=== PATIENT | female | born 1930 | race Caucasian/White ===

== ENCOUNTER 2016-12-29 14:41 | Inpatient (IN) | payer MEDICARE, BC ==
[2016-12-29 15:56] LABS: CHLORIDE,CL 100 mEq/L (98-106); SODIUM,NA 140 mEq/L (136-145)
[2016-12-29] MEDS ORDERED: Naloxone 2 MG/2 ML Syringe IVPUSH ONE (16:41)
--- NOTE | 2016-12-29 17:29 | EDM.PDOC ---
ED HPI ALTERED MENTAL STATUS - General Chief Complaint: Neuro Symptoms/Deficits Stated Complaint: found on floor, confused Time Seen by Provider: 12/29/16 15:10 Source of Information: Reports: EMS, Family History Limitations: Reports: Altered mental status - History of Present Illness INITIAL COMMENTS - FREE TEXT/NARRATIVE: Patient presents to ER per EMS with altered mental status. Daughter relates that last evening a friend talked to her and seemed "a bit off". Daughter called her this am and patient seemed lethargic, speech wasn't clear. Said she advised her to rest and have her call her back when she awoke. Daughter states she didn't hear from her so she went and checked on her and found her lying on the floor. Was confused. Speech still seemed off. Apparently didn't know who her daughter was. Seemed very weak. Blood pressure high for EMS and on arrival. Was in to see Dr. Linares recently. Daughter states he had put her on flexeril and norco for ongoing back pain. Was seen by a specialist on Saturday and was started on Gabapentin and Amitryptiline. Daughter does not think she has had a fever. No cough. No nausea or vomiting. Was not incontinent of bowel or bladder. Baseline Mental Status: Reports: alert/oriented Symptom Onset Date: 12/28/16 Timing/Duration: Reports: Day(s): Context: Reports: new/acute, new meds, found by family. Denies: recent infection, new trauma, drug/ETOH abuse - Related Data Allergies/ADRs: Allergies oxycodone HCl [From Percocet] Allergy (Verified 12/29/16 15:17) Hallucinations Home Meds: Home Meds Aspirin 325 mg PO DAILY 05/02/14 [History] Hydrocodone/Acetaminophen [[place] 5-325] 1 - 2 tab PO Q4H PRN 05/02/14 [History] Lisinopril/Hydrochlorothiazide [Lisinopril-Hctz 20-12.5 mg Tab] 1 each PO DAILY 05/02/14 [History] Metoprolol Succinate [Toprol XL 100mg] 100 mg PO DAILY 05/02/14 [History] Simvastatin 80 mg PO BEDTIME 05/02/14 [History] cloNIDine [Catapres] 0.1 mg PO BID 05/02/14 [History] traZODone 50 mg PO BEDTIME 05/02/14 [History] Cholecalciferol (Vitamin D3) [Vitamin D] 1,000 unit PO DAILY 12/24/15 [History] Cyclobenzaprine HCl 10 mg PO BEDTIME 12/24/15 [History] Insulin Glarg,Human.Rec.Analog [LantUS Solostar] 40 unit SUBCUT BEDTIME [History] metFORMIN [Glucophage] 500 mg PO BIDMEALS 08/08/16 [History] Amitriptyline HCl 75 mg PO BEDTIME 12/29/16 [History] Gabapentin [Neurontin] 300 mg PO TID 12/29/16 [History] Past Medical History HEENT History: Reports: Allergic rhinitis Cardiovascular History: Reports: High cholesterol, Hypertension Respiratory History: Reports: Sleep apnea Gastrointestinal History: Reports: GERD Genitourinary History: Reports: None 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: Musculoskeletal History: Reports: Arthritis, Back pain, chronic, Fracture, Osteoporosis, RA, Other (see below) Other Musculoskeletal History: Muscle spasms, arthralgia Neurological History: Reports: Other (see below) Other Neuro History: daughter states pt has had a few ministrokes Psychiatric History: Reports: Anxiety, Other (see below) Other Psychiatric History: Insomnia Endocrine/Metabolic History: Reports: Diabetes, type II Hematologic History: Reports: None Oncologic (Cancer) History: Reports: Breast Dermatologic History: Reports: Other (see below) Other Dermatologic History: Actinic keratosis - Past Surgical History HEENT Surgical History: Reports: Cataract surgery Respiratory Surgical History: Reports: None GI Surgical History: Reports: Appendectomy, Cholecystectomy, Hernia, inguinal Female Surgical History: Reports: Hysterectomy, Oophorectomy, Other (see below) Other Female Surgeries/Procedures: Breast Lumpectomy Neurological Surgical History: Reports: None Musculoskeletal Surgical History: Reports: Other (see below) Other Musculoskeletal Surgeries/Procedures:: right elbow surgery Social & Family History - Family History Family Medical History: Noncontributory - Tobacco Use Smoking Status *Q: Never Smoker Second Hand Smoke Exposure: No - Recreational Drug Use Recreational Drug Use: No ED ROS GENERAL - Review of Systems Review Of Systems: See Below (obtained per daughter) Constitutional: Reports: weakness. Denies: fever, chills, malaise, diaphoresis HEENT: Denies: Ear discharge, Ear pain, Throat pain Respiratory: Reports: shortness of breath Cardiovascular: Reports: Lightheadedness Endocrine: Reports: fatigue GI/Abdominal: Denies: Abdominal pain, Nausea, Vomiting Musculoskeletal: Reports: back pain Skin: Reports: no symptoms Neurological: Reports: confusion, trouble speaking, weakness, change in speech, gait disturbance Psychiatric: Reports: Agitation, Anxiety, Confusion - Physical Exam Exam: See Below Exam Limited By: Altered mental status General Appearance: WD/WN, anxious Eye Exam: bilateral eye: PERRL Ears: normal external exam, normal TMs Nose: normal inspection, normal mucosa, no blood Throat/Mouth: Normal inspection, Normal oropharynx Head Exam: normocephalic Neck: normal inspection, supple, non-tender Respiratory/Chest: no respiratory distress, lungs clear, normal breath sounds Cardiovascular: tachycardia GI/Abdominal: normal bowel sounds, soft, non tender Neuro Exam (Abbreviated): disoriented, other (agitated, restless; does not follow commands. Does have equal palmar grasps; speech is slurred; BALLESTEROS equally) Extremities: normal inspection, no pedal edema Psychiatric: anxious Skin Exam: Warm, Dry Course - Vital Signs Last Recorded V/S: Last Vital Signs Temp 97.9 F 12/29/16 16:25 Pulse 120 H 12/29/16 16:25 Resp 20 12/29/16 16:25 BP 128/91 H 12/29/16 17:31 Pulse Ox 93 L 12/29/16 16:25 - Orders/Labs/Meds Orders: Active Orders 24 hr Category Date Time Status Patient Status [ADT] Routine ADT 12/29/16 18:33 Active Blood Glucose Check, Bedside [RC] QIDACANDBED Care 12/29/16 18:33 Active Cardiac Monitoring [RC] . DIRECTED Care 12/29/16 18:16 Active Cardiac Monitoring [RC] CONTINUOUS Care 12/29/16 18:33 Active Neuro Check [RC] Q4HR Care 12/29/16 18:33 Active Oxygen Therapy [RC] PRN Care 12/29/16 18:33 Active Peripheral IV Care [RC] . DIRECTED Care 12/29/16 18:33 Active Up With Assistance [RC] ASDIRECTED Care 12/29/16 18:33 Active VTE/DVT Education [RC] PER UNIT ROUTINE Care 12/29/16 18:33 Active Vital Signs [RC] Q4H Care 12/29/16 18:33 Active Consistent Carbohydrate Diet [DIET] Diet 12/29/16 Dinner Active CXR [Chest 1V Frontal] [CR] Stat Exams 12/29/16 14:51 Taken Cervical Spine wo Cont [CT] Stat Exams 12/29/16 14:50 Taken Head wo Cont [CT] Stat Exams 12/29/16 14:49 Taken ACETAMINOPHEN [REF] Stat Lab 12/29/16 16:41 Ordered AMMONIA [REF] Stat Lab 12/29/16 16:43 Ordered C-REACTIVE PROTEIN [CHEM] AM Lab 12/30/16 05:11 Ordered CBC WITH AUTO DIFF [HEME] AM Lab 12/30/16 05:11 Ordered COMPREHENSIVE METABOLIC PN,CMP [CHEM] AM Lab 12/30/16 05:11 Ordered Acetaminophen [Tylenol] Med 12/29/16 18:33 Active 650 mg PO Q4H PRN Enoxaparin [Lovenox] Med 12/29/16 18:33 Pending 40 mg SUBCUT Q24H LORazepam [Ativan] Med 12/29/16 18:33 Active 1 mg IVPUSH Q4H PRN Ondansetron [Zofran ODT] Med 12/29/16 18:33 Active 4 mg PO Q4H PRN Ondansetron [Zofran] Med 12/29/16 18:33 Active 4 mg IV Q4H PRN Sodium Chloride 0.45% 1,000 ml Med 12/29/16 18:00 Active IV ASDIRECTED Sodium Chloride 0.9% [Saline Flush] Med 12/29/16 18:33 Active 10 ml FLUSH ASDIRECTED PRN Peripheral IV Insertion Adult [OM.PC] Routine Oth 12/29/16 18:33 Ordered Resuscitation Status Routine Resus Stat 12/29/16 18:16 Ordered Medication Orders Acetaminophen (Tylenol) 650 mg PO Q4H PRN PRN Reason: Pain (Mild 1-3)/fever Enoxaparin Sodium (Lovenox) 40 mg SUBCUT Q24H RAJ Sodium Chloride (Sodium Chloride 0.45%) 1,000 mls @ 125 mls/hr IV ASDIRECTED RAJ Last Admin: 12/29/16 18:00 Dose: 125 mls/hr Lorazepam (Ativan) 1 mg IVPUSH Q4H PRN PRN Reason: Anxiety Ondansetron HCl (Zofran Odt) 4 mg PO Q4H PRN PRN Reason: nausea, able to take PO Ondansetron HCl (Zofran) 4 mg IV Q4H PRN PRN Reason: Nausea/Vomiting Sodium Chloride (Saline Flush) 10 ml FLUSH ASDIRECTED PRN PRN Reason: Keep Vein Open Labs: Laboratory Tests 12/29/16 12/29/16 12/29/16 Range/Units 14:51 15:07 15:07 WBC 8.9 (5.0-10.0) 10^3/uL RBC 4.33 (4.00-5.50) 10^6/uL Hgb 12.1 (12.0-16.0) g/dL Hct 37.9 (37.0-47.0) % MCV 87.5 (82.0-94.0) fL MCH 27.9 (27.0-32.0) pg MCHC 31.9 L (33.0-38.0) g/dL RDW Coeff of Roxanna 13.8 (11.0-15.0) % Plt Count 347 (150-400) 10^3/uL Neut % (Auto) 76.2 (35-85) % Lymph % (Auto) 15.7 (10-55) % [place] % (Auto) 4.6 (0-16) % Eos % (Auto) 3.2 (0-5) % Baso % (Auto) 0.3 (0-3) % Neut # 6.80 (1.80-7.00) 10^3/uL Lymph # 1.40 (1.00-4.80) 10^3/uL [place] # 0.41 (0.00-0.80) 10^3/uL Eos # 0.29 (0.00-0.45) 10^3/uL Baso # 0.03 10^3/uL D-Dimer, Quantitative 1.48 H (0.00-0.50) ABG pH (7.35-7.45) ABG pCO2 (35-45) mm/Hg0 ABG pO2 (80-100) mm/Hg ABG HCO3 (22.0-26.0) mm/L ABG O2 Saturation (95-98) % ABG Base Excess (-2.0-3.0) O2 Delivery Device Oxygen Flow Rate Sodium (136-145) mEq/L Potassium (3.5-5.0) mEq/L Chloride (98-106) mEq/L Carbon Dioxide (21-32) mmol/L BUN (7-18) mg/dL Creatinine (0.6-1.0) mg/dL Est Cr Clr Drug Dosing Estimated GFR (MDRD) (>=60) mL/min Glucose (75-99) mg/dL POC Glucose 116 H (75-105) mg/dl Lactic Acid (0.4-2.0) mmol/L Calcium (8.4-10.1) mg/dL Total Bilirubin (0.0-1.0) mg/dL AST (15-37) U/L ALT (12-78) U/L Alkaline Phosphatase (46-116) U/L Lactate Dehydrogenase (100-190) U/L Creatine Kinase (21-215) U/L Troponin I (0.00-0.06) ng/mL C-Reactive Protein (0.2-0.8) mg/dL Total Protein (6.4-8.2) g/dL Albumin (3.4-5.0) g/dL Urine Color (YELLOW) Urine Appearance (CLEAR) Urine pH (4.5-8.0) Ur Specific [place] (1.003-1.020) Urine Protein (NEGATIVE) mg/dL Urine Glucose (UA) (NEGATIVE) mg/dL Urine Ketones (NEGATIVE) mg/dL Urine Occult Blood (NEGATIVE) Urine Nitrite (NEGATIVE) Urine Bilirubin (NEGATIVE) Urine Urobilinogen (0.2-1.0) EU/dL Ur Leukocyte Esterase (NEGATIVE) Urine Opiates Screen (NEGATIVE) Ur Oxycodone Screen (NEGATIVE) Urine Methadone Screen (NEGATIVE) Ur Barbiturates Screen (NEGATIVE) U Tricyclic Antidepress (NEGATIVE) Ur Phencyclidine Scrn (NEGATIVE) Ur Amphetamine Screen (NEGATIVE) U Methamphetamines Scrn (NEGATIVE) Urine MDMA Screen (NEGATIVE) U Benzodiazepines Scrn (NEGATIVE) Urine Cocaine Screen (NEGATIVE) U Marijuana (THC) Screen (NEGATIVE) 12/29/16 12/29/16 12/29/16 Range/Units 15:07 15:07 16:18 WBC (5.0-10.0) 10^3/uL RBC (4.00-5.50) 10^6/uL Hgb (12.0-16.0) g/dL Hct (37.0-47.0) % MCV (82.0-94.0) fL MCH (27.0-32.0) pg MCHC (33.0-38.0) g/dL RDW Coeff of Roxanna (11.0-15.0) % Plt Count (150-400) 10^3/uL Neut % (Auto) (35-85) % Lymph % (Auto) (10-55) % [place] % (Auto) (0-16) % Eos % (Auto) (0-5) % Baso % (Auto) (0-3) % Neut # (1.80-7.00) 10^3/uL Lymph # (1.00-4.80) 10^3/uL [place] # (0.00-0.80) 10^3/uL Eos # (0.00-0.45) 10^3/uL Baso # 10^3/uL D-Dimer, Quantitative (0.00-0.50) ABG pH (7.35-7.45) ABG pCO2 (35-45) mm/Hg0 ABG pO2 (80-100) mm/Hg ABG HCO3 (22.0-26.0) mm/L ABG O2 Saturation (95-98) % ABG Base Excess (-2.0-3.0) O2 Delivery Device Oxygen Flow Rate Sodium 140 (136-145) mEq/L Potassium 3.4 L (3.5-5.0) mEq/L Chloride 100 (98-106) mEq/L Carbon Dioxide 29 (21-32) mmol/L BUN 11 (7-18) mg/dL Creatinine 0.8 (0.6-1.0) mg/dL Est Cr Clr Drug Dosing TNP Estimated GFR (MDRD) > 60 (>=60) mL/min Glucose 127 H D (75-99) mg/dL POC Glucose (75-105) mg/dl Lactic Acid 1.4 (0.4-2.0) mmol/L Calcium 9.3 (8.4-10.1) mg/dL Total Bilirubin 0.4 (0.0-1.0) mg/dL AST 27 (15-37) U/L ALT 29 (12-78) U/L Alkaline Phosphatase 126 H (46-116) U/L Lactate Dehydrogenase 175 (100-190) U/L Creatine Kinase 42 (21-215) U/L Troponin I < 0.017 (0.00-0.06) ng/mL C-Reactive Protein 2.4 H (0.2-0.8) mg/dL Total Protein 8.0 (6.4-8.2) g/dL Albumin 3.7 (3.4-5.0) g/dL Urine Color Yellow (YELLOW) Urine Appearance Clear (CLEAR) Urine pH 7.5 (4.5-8.0) Ur Specific [place] 1.015 (1.003-1.020) Urine Protein 30 H (NEGATIVE) mg/dL Urine Glucose (UA) Negative (NEGATIVE) mg/dL Urine Ketones 15 H (NEGATIVE) mg/dL Urine Occult Blood Trace-intact H (NEGATIVE) Urine Nitrite Negative (NEGATIVE) Urine Bilirubin Negative (NEGATIVE) Urine Urobilinogen 0.2 (0.2-1.0) EU/dL Ur Leukocyte Esterase Negative (NEGATIVE) Urine Opiates Screen (NEGATIVE) Ur Oxycodone Screen (NEGATIVE) Urine Methadone Screen (NEGATIVE) Ur Barbiturates Screen (NEGATIVE) U Tricyclic Antidepress (NEGATIVE) Ur Phencyclidine Scrn (NEGATIVE) Ur Amphetamine Screen (NEGATIVE) U Methamphetamines Scrn (NEGATIVE) Urine MDMA Screen (NEGATIVE) U Benzodiazepines Scrn (NEGATIVE) Urine Cocaine Screen (NEGATIVE) U Marijuana (THC) Screen (NEGATIVE) 12/29/16 12/29/16 Range/Units 16:41 17:38 WBC (5.0-10.0) 10^3/uL RBC (4.00-5.50) 10^6/uL Hgb (12.0-16.0) g/dL Hct (37.0-47.0) % MCV (82.0-94.0) fL MCH (27.0-32.0) pg MCHC (33.0-38.0) g/dL RDW Coeff of Roxanna (11.0-15.0) % Plt Count (150-400) 10^3/uL Neut % (Auto) (35-85) % Lymph % (Auto) (10-55) % [place] % (Auto) (0-16) % Eos % (Auto) (0-5) % Baso % (Auto) (0-3) % Neut # (1.80-7.00) 10^3/uL Lymph # (1.00-4.80) 10^3/uL [place] # (0.00-0.80) 10^3/uL Eos # (0.00-0.45) 10^3/uL Baso # 10^3/uL D-Dimer, Quantitative (0.00-0.50) ABG pH 7.45 (7.35-7.45) ABG pCO2 36 (35-45) mm/Hg0 ABG pO2 78 L (80-100) mm/Hg ABG HCO3 25.1 (22.0-26.0) mm/L ABG O2 Saturation 96 (95-98) % ABG Base Excess 1.0 (-2.0-3.0) O2 Delivery Device Room air Oxygen Flow Rate 0 Sodium (136-145) mEq/L Potassium (3.5-5.0) mEq/L Chloride (98-106) mEq/L Carbon Dioxide (21-32) mmol/L BUN (7-18) mg/dL Creatinine (0.6-1.0) mg/dL Est Cr Clr Drug Dosing Estimated GFR (MDRD) (>=60) mL/min Glucose (75-99) mg/dL POC Glucose (75-105) mg/dl Lactic Acid (0.4-2.0) mmol/L Calcium (8.4-10.1) mg/dL Total Bilirubin (0.0-1.0) mg/dL AST (15-37) U/L ALT (12-78) U/L Alkaline Phosphatase (46-116) U/L Lactate Dehydrogenase (100-190) U/L Creatine Kinase (21-215) U/L Troponin I (0.00-0.06) ng/mL C-Reactive Protein (0.2-0.8) mg/dL Total Protein (6.4-8.2) g/dL Albumin (3.4-5.0) g/dL Urine Color (YELLOW) Urine Appearance (CLEAR) Urine pH (4.5-8.0) Ur Specific [place] (1.003-1.020) Urine Protein (NEGATIVE) mg/dL Urine Glucose (UA) (NEGATIVE) mg/dL Urine Ketones (NEGATIVE) mg/dL Urine Occult Blood (NEGATIVE) Urine Nitrite (NEGATIVE) Urine Bilirubin (NEGATIVE) Urine Urobilinogen (0.2-1.0) EU/dL Ur Leukocyte Esterase (NEGATIVE) Urine Opiates Screen Positive H (NEGATIVE) Ur Oxycodone Screen Negative (NEGATIVE) Urine Methadone Screen Negative (NEGATIVE) Ur Barbiturates Screen Negative (NEGATIVE) U Tricyclic Antidepress Positive H (NEGATIVE) Ur Phencyclidine Scrn Negative (NEGATIVE) Ur Amphetamine Screen Negative (NEGATIVE) U Methamphetamines Scrn Negative (NEGATIVE) Urine MDMA Screen Negative (NEGATIVE) U Benzodiazepines Scrn Negative (NEGATIVE) Urine Cocaine Screen Negative (NEGATIVE) U Marijuana (THC) Screen Negative (NEGATIVE) Meds: Medications Generic Name Dose Route Start Last Admin Trade Name Freq PRN Reason Stop Dose Admin Acetaminophen 650 mg 12/29/16 18:33 Tylenol PO Q4H PRN Pain (Mild 1-3)/fever Enoxaparin Sodium 40 mg 12/29/16 18:33 Lovenox SUBCUT Q24H RAJ Sodium Chloride 1,000 mls @ 125 mls/hr 12/29/16 18:00 12/29/16 18:00 Sodium Chloride 0.45% IV 125 mls/hr ASDIRECTED RAJ Administration Lorazepam 1 mg 12/29/16 18:33 Ativan IVPUSH Q4H PRN Anxiety Ondansetron HCl 4 mg 12/29/16 18:33 Zofran Odt PO Q4H PRN nausea, able to take PO Ondansetron HCl 4 mg 12/29/16 18:33 Zofran IV Q4H PRN Nausea/Vomiting Sodium Chloride 10 ml 12/29/16 18:33 Saline Flush FLUSH ASDIRECTED PRN Keep Vein Open Discontinued Medications Generic Name Dose Route Start Last Admin Trade Name Freq PRN Reason Stop Dose Admin Naloxone HCl 1 mg 12/29/16 16:41 12/29/16 16:48 Narcan IVPUSH 12/29/16 16:42 1 mg ONETIME ONE Administration - Re-Assessments/Exams Free Text/Narrative Re-Assessment/Exam: 12/29/[address] Card, hospitalist at [place]. He did recommend ABGs, Ammonia level, Tylenol level, drug screen and to give the patient Narcan and contact him when results are received. She did have some response from the narcan as she became more alert. She still remains altered, talking about people who have been for quite some time, speech easier to understand [address] Card again with results. He does feel that her alteration may be related to combination of her old and new meds. Will admit her with IV fluids and monitor neuro status. If remains altered in the am, he recommends transfer for further work up. Departure - Departure Time of Disposition: 18:15 Disposition: Admitted As Inpatient 68 Clinical Impression: Altered mental status Qualifiers: Altered mental status type: disorientation Qualified Code(s): R41.0 - Disorientation, unspecified - Problem List & Annotations (1) Altered mental status SNOMED Code(s): 084675193 Code(s): R41.82 - ALTERED MENTAL STATUS, UNSPECIFIED Status: Acute Priority: High Current Visit: Yes Qualifiers: Altered mental status type: disorientation Qualified Code(s): R41.0 - Disorientation, unspecified - Problem List Review Problem List Initiated/Reviewed/Updated: Yes - My Orders Last 24 Hours: My Active Orders 12/29/16 14:49 Head wo Cont [CT] Stat 12/29/16 14:50 Cervical Spine wo Cont [CT] Stat 12/29/16 14:51 CXR [Chest 1V Frontal] [CR] Stat 12/29/16 16:41 ACETAMINOPHEN [REF] Stat 12/29/16 16:43 AMMONIA [REF] Stat 12/29/16 18:00 Sodium Chloride 0.45% 1,000 ml IV ASDIRECTED 12/29/16 18:16 Cardiac Monitoring [RC] . DIRECTED Resuscitation Status Routine 12/29/16 18:33 Patient Status [ADT] Routine Blood Glucose Check, Bedside [RC] QIDACANDBED Cardiac Monitoring [RC] CONTINUOUS Neuro Check [RC] Q4HR Oxygen Therapy [RC] PRN Peripheral IV Care [RC] . DIRECTED Up With Assistance [RC] ASDIRECTED VTE/DVT Education [RC] PER UNIT ROUTINE Vital Signs [RC] Q4H Acetaminophen [Tylenol] 650 mg PO Q4H PRN Enoxaparin [Lovenox] 40 mg SUBCUT Q24H LORazepam [Ativan] 1 mg IVPUSH Q4H PRN Ondansetron [Zofran ODT] 4 mg PO Q4H PRN Ondansetron [Zofran] 4 mg IV Q4H PRN Sodium Chloride 0.9% [Saline Flush] 10 ml FLUSH ASDIRECTED PRN Peripheral IV Insertion Adult [OM.PC] Routine 12/29/16 Dinner Consistent Carbohydrate Diet [DIET] 12/30/16 05:11 C-REACTIVE PROTEIN [CHEM] AM CBC WITH AUTO DIFF [HEME] AM COMPREHENSIVE METABOLIC PN,CMP [CHEM] AM - Assessment/Plan Admission H&P: Please use this note as an admission H&P Last 24 Hours: My Active Orders 12/29/16 14:49 Head wo Cont [CT] Stat 12/29/16 14:50 Cervical Spine wo Cont [CT] Stat 12/29/16 14:51 CXR [Chest 1V Frontal] [CR] Stat 12/29/16 16:41 ACETAMINOPHEN [REF] Stat 12/29/16 16:43 AMMONIA [REF] Stat 12/29/16 18:00 Sodium Chloride 0.45% 1,000 ml IV ASDIRECTED 12/29/16 18:16 Cardiac Monitoring [RC] . DIRECTED Resuscitation Status Routine 12/29/16 18:33 Patient Status [ADT] Routine Blood Glucose Check, Bedside [RC] QIDACANDBED Cardiac Monitoring [RC] CONTINUOUS Neuro Check [RC] Q4HR Oxygen Therapy [RC] PRN Peripheral IV Care [RC] . DIRECTED Up With Assistance [RC] ASDIRECTED VTE/DVT Education [RC] PER UNIT ROUTINE Vital Signs [RC] Q4H Acetaminophen [Tylenol] 650 mg PO Q4H PRN Enoxaparin [Lovenox] 40 mg SUBCUT Q24H LORazepam [Ativan] 1 mg IVPUSH Q4H PRN Ondansetron [Zofran ODT] 4 mg PO Q4H PRN Ondansetron [Zofran] 4 mg IV Q4H PRN Sodium Chloride 0.9% [Saline Flush] 10 ml FLUSH ASDIRECTED PRN Peripheral IV Insertion Adult [OM.PC] Routine 12/29/16 Dinner Consistent Carbohydrate Diet [DIET] 12/30/16 05:11 C-REACTIVE PROTEIN [CHEM] AM CBC WITH AUTO DIFF [HEME] AM COMPREHENSIVE METABOLIC PN,CMP [CHEM] AM Assessment:: altered mental status Plan: Admit to Dr. Linares's services. Will continue to watch neuro status, give IV fluids. Reevaluate labs in the am. Dr. Linares aware of admission and agrees with plan
[2016-12-29 17:31] LABS: BICARBONATE,ARTERIAL 25.1 mm/L (22.0-26.0); O2 DELIVERY DEVICE ROOM AIR; O2 FLOW RATE 0; O2 SATURATION ARTERIAL 96 % (95-98); PCO2 ARTERIAL 36 mm/Hg0 (35-45); PO2 ARTERIAL 78 mm/Hg (80-100)
[2016-12-29] MEDS: Sodium Chloride 0.45% 1,000 ML IV SCH (18:00)
[2016-12-29] MEDS ORDERED: Acetaminophen 325 MG Tab PO PRN (18:33)
[2016-12-29] MEDS ORDERED: Ondansetron 4 MG/2 ML SDV IV PRN (18:33)
[2016-12-29] MEDS ORDERED: LORazepam 2 MG/ML Syringe IVPUSH PRN (18:33)
[2016-12-29] MEDS ORDERED: Ondansetron 4 MG Tab.DIS PO PRN (18:33)
[2016-12-29] MEDS ORDERED: Sodium Chloride 0.9% 10 ML Syringe FLUSH PRN (18:33)
[2016-12-29] MEDS: Enoxaparin 40 MG/0.4 ML Syringe SUBCUT SCH (21:33)
[2016-12-30] MEDS: Sodium Chloride 0.45% 1,000 ML IV SCH ×3 (00:15→18:32)
[2016-12-30] MEDS ORDERED: Metoprolol Succinate 100 MG Tab.ER PO ONE ×2 (00:22→01:30)
[2016-12-30] MEDS: Acetaminophen/HYDROcodone 325-5 MG Tab PO PRN ×3 (02:32→18:30)
[2016-12-30] MEDS: Hydrochlorothiazide 12.5 MG Cap PO SCH (08:00)
[2016-12-30] MEDS: Aspirin 325 MG Tab.EC PO SCH (08:00)
[2016-12-30] MEDS: metFORMIN 500 MG Tab PO SCH ×2 (08:00→17:30)
[2016-12-30] MEDS: Gabapentin 100 MG Cap PO SCH ×3 (08:00→21:16)
[2016-12-30] MEDS: cloNIDine 0.1 MG Tab PO SCH ×2 (08:00→21:16)
[2016-12-30] MEDS ORDERED: Lisinopril 20 MG Tab PO SCH (08:00)
[2016-12-30] MEDS: Metoprolol Succinate 100 MG Tab.ER PO SCH (08:01)
[2016-12-30 08:14] LABS: CHLORIDE,CL 104 mEq/L (98-106); SODIUM,NA 141 mEq/L (136-145)
[2016-12-30] MEDS: Lisinopril 20 MG Tab PO SCH (08:27)
--- NOTE | 2016-12-30 15:38 | PCM.PN ---
- General Info Date of Service: 12/30/16 Admission Dx/Problem (Free Text): Altered Mental Status Functional Status: Reports: pain controlled, tolerating diet, ambulating - Review of Systems General: Denies: fever, weakness, fatigue HEENT: Reports: no symptoms Pulmonary: Reports: no symptoms Cardiovascular: Reports: no symptoms Gastrointestinal: Reports: No symptoms Genitourinary: Reports: no symptoms Musculoskeletal: Reports: back pain Neurological: Reports: confusion (confusion is better today. Does have some periods of disorientation but daughter relates that her conversation is more appropriate today. ) - Patient Data Vitals - most recent: Last Vital Signs Temp 99.1 F 12/30/16 12:00 Pulse 79 12/30/16 12:00 Resp 18 12/30/16 12:00 BP 130/73 12/30/16 12:00 Pulse Ox 93 L 12/30/16 12:00 Weight - most recent: 159 lb 4.8 oz I&O - last 24 hours: Intake & Output 12/30/16 12/30/16 12/30/16 06:59 14:59 22:59 Intake Total 781 1000 Balance 781 1000 Lab Results last 24 hrs: Laboratory Results - last 24 hr 12/29/16 12/30/16 12/30/16 Range/Units 20:10 05:11 05:11 WBC 9.2 (5.0-10.0) 10^3/uL RBC 4.08 (4.00-5.50) 10^6/uL Hgb 11.5 L (12.0-16.0) g/dL Hct 36.2 L (37.0-47.0) % MCV 88.7 (82.0-94.0) fL MCH 28.2 (27.0-32.0) pg MCHC 31.8 L (33.0-38.0) g/dL RDW Coeff of Roxanna 13.9 (11.0-15.0) % Plt Count 391 (150-400) 10^3/uL Neut % (Auto) 72.5 (35-85) % Lymph % (Auto) 16.2 (10-55) % [place] % (Auto) 8.8 (0-16) % Eos % (Auto) 2.2 (0-5) % Baso % (Auto) 0.3 (0-3) % Neut # 6.70 (1.80-7.00) 10^3/uL Lymph # 1.50 (1.00-4.80) 10^3/uL [place] # 0.81 H (0.00-0.80) 10^3/uL Eos # 0.20 (0.00-0.45) 10^3/uL Baso # 0.03 10^3/uL Sodium 141 (136-145) mEq/L Potassium 3.2 L (3.5-5.0) mEq/L Chloride 104 (98-106) mEq/L Carbon Dioxide 26 (21-32) mmol/L BUN 8 (7-18) mg/dL Creatinine 0.8 (0.6-1.0) mg/dL Est Cr Clr Drug Dosing 41.40 mL/min Estimated GFR (MDRD) > 60 (>=60) mL/min Glucose 120 H (75-99) mg/dL POC Glucose 136 H (75-105) mg/dl Calcium 8.8 (8.4-10.1) mg/dL Total Bilirubin 0.5 (0.0-1.0) mg/dL AST 23 (15-37) U/L ALT 25 (12-78) U/L Alkaline Phosphatase 110 (46-116) U/L C-Reactive Protein 2.6 H (0.2-0.8) mg/dL Total Protein 7.4 (6.4-8.2) g/dL Albumin 3.3 L (3.4-5.0) g/dL 12/30/16 12/30/16 Range/Units 07:55 11:23 WBC (5.0-10.0) 10^3/uL RBC (4.00-5.50) 10^6/uL Hgb (12.0-16.0) g/dL Hct (37.0-47.0) % MCV (82.0-94.0) fL MCH (27.0-32.0) pg MCHC (33.0-38.0) g/dL RDW Coeff of Roxanna (11.0-15.0) % Plt Count (150-400) 10^3/uL Neut % (Auto) (35-85) % Lymph % (Auto) (10-55) % [place] % (Auto) (0-16) % Eos % (Auto) (0-5) % Baso % (Auto) (0-3) % Neut # (1.80-7.00) 10^3/uL Lymph # (1.00-4.80) 10^3/uL [place] # (0.00-0.80) 10^3/uL Eos # (0.00-0.45) 10^3/uL Baso # 10^3/uL Sodium (136-145) mEq/L Potassium (3.5-5.0) mEq/L Chloride (98-106) mEq/L Carbon Dioxide (21-32) mmol/L BUN (7-18) mg/dL Creatinine (0.6-1.0) mg/dL Est Cr Clr Drug Dosing mL/min Estimated GFR (MDRD) (>=60) mL/min Glucose (75-99) mg/dL POC Glucose 113 H 100 (75-105) mg/dl Calcium (8.4-10.1) mg/dL Total Bilirubin (0.0-1.0) mg/dL AST (15-37) U/L ALT (12-78) U/L Alkaline Phosphatase (46-116) U/L C-Reactive Protein (0.2-0.8) mg/dL Total Protein (6.4-8.2) g/dL Albumin (3.4-5.0) g/dL Med Orders - Current: Current Medications Acetaminophen (Tylenol) 650 mg PO Q4H PRN PRN Reason: Pain (Mild 1-3)/fever Acetaminophen/Hydrocodone Bitart (Avoca 325-5 Mg) 1 tab PO Q6H PRN PRN Reason: Pain Last Admin: 12/30/16 10:38 Dose: 1 tab Aspirin (Ecotrin) 325 mg PO DAILY [facility] Last Admin: 12/30/16 08:00 Dose: 325 mg Clonidine HCl (Catapres) 0.1 mg PO BID [facility] Last Admin: 12/30/16 08:00 Dose: 0.1 mg Enoxaparin Sodium (Lovenox) 40 mg SUBCUT Q24H [facility] Last Admin: 12/29/16 21:33 Dose: 40 mg Gabapentin (Neurontin) 100 mg PO TID [facility] Last Admin: 12/30/16 14:04 Dose: 100 mg Hydrochlorothiazide (Hydrochlorothiazide) 12.5 mg PO DAILY [facility] Last Admin: 12/30/16 08:00 Dose: 12.5 mg Sodium Chloride (Sodium Chloride 0.45%) 1,000 mls @ 125 mls/hr IV ASDIRECTED [facility] Last Admin: 12/30/16 10:39 Dose: 125 mls/hr Insulin Detemir (Levemir) 40 unit SUBCUT BEDTIME [facility] Lisinopril (Prinivil) 20 mg PO DAILY [facility] Last Admin: 12/30/16 08:27 Dose: 20 mg Lorazepam (Ativan) 1 mg IVPUSH Q4H PRN PRN Reason: Anxiety Metformin HCl (Glucophage) 500 mg PO BIDMEALS [facility] Last Admin: 12/30/16 08:00 Dose: 500 mg Metoprolol Succinate (Toprol Xl) 100 mg PO DAILY [facility] Last Admin: 12/30/16 08:01 Dose: 100 mg Ondansetron HCl (Zofran Odt) 4 mg PO Q4H PRN PRN Reason: nausea, able to take PO Ondansetron HCl (Zofran) 4 mg IV Q4H PRN PRN Reason: Nausea/Vomiting Potassium Chloride (Klor-Con 10) 20 meq PO BIDMEALS [facility] Simvastatin (Zocor) 80 mg PO BEDTIME [facility] Sodium Chloride (Saline Flush) 10 ml FLUSH ASDIRECTED PRN PRN Reason: Keep Vein Open Discontinued Medications Lisinopril (Prinivil) 1 mg PO DAILY [facility] Last Admin: 12/30/16 08:03 Dose: Not Given Metoprolol Succinate (Toprol Xl) 100 mg PO ONETIME ONE Stop: 12/30/16 00:23 Last Admin: 12/30/16 02:29 Dose: Not Given Metoprolol Succinate (Toprol Xl) 100 mg PO ONETIME ONE Stop: 12/30/16 01:31 Last Admin: 12/30/16 00:30 Dose: 100 mg Naloxone HCl (Narcan) 1 mg IVPUSH ONETIME ONE Stop: 12/29/16 16:42 Last Admin: 12/29/16 16:48 Dose: 1 mg - Exam General: alert, oriented HEENT: Mucous membr. moist/pink Neck: supple Lungs: Clear to auscultation, Normal respiratory effort Cardiovascular: regular rate, regular rhythm Abdomen: bowel sounds present, soft, no tenderness Extremities: no edema Skin: warm, dry Neurological: no new focal deficit Psy/Mental Status: alert, normal affect, normal mood - Problem List & Annotations (1) Altered mental status SNOMED Code(s): 003918994 Code(s): R41.82 - ALTERED MENTAL STATUS, UNSPECIFIED Status: Acute Priority: High Current Visit: Yes Qualifiers: Altered mental status type: disorientation Qualified Code(s): R41.0 - Disorientation, unspecified - Problem List Review Problem List Initiated/Reviewed/Updated: Yes - My Orders Last 24 Hours: My Active Orders 12/29/16 20:32 Acetaminophen/HYDROcodone [Avoca 325-5 MG] 1 tab PO Q6H PRN 12/30/16 08:00 Aspirin [Ecotrin] 325 mg PO DAILY Gabapentin [Neurontin] 100 mg PO TID Hydrochlorothiazide 12.5 mg PO DAILY Metoprolol Succinate [Toprol XL] 100 mg PO DAILY cloNIDine [Catapres] 0.1 mg PO BID metFORMIN [Glucophage] 500 mg PO BIDMEALS 12/30/16 08:03 Lisinopril [Prinivil] 20 mg PO DAILY 12/30/16 17:30 Potassium Chloride [Klor-Con 10] 20 meq PO BIDMEALS 12/30/16 20:00 Insulin Detemir [Levemir] 40 unit SUBCUT BEDTIME Simvastatin [Zocor] 80 mg PO BEDTIME - Assessment Assessment:: Altered Mental Status - Plan Plan:: Patient is better today. Did recognize this provider today. Oriented. Does have mild back pain but is tolerating well. Much more alert. Tolerating her meals. Visiting well with daughter. Will continue to monitor telemetry, neuro status. Continue new changes with meds. Reevaluate possible discharge potential in am.
[2016-12-30] MEDS: Potassium Chloride 10 MEQ Tab.ER PO SCH (17:30)
[2016-12-30] MEDS: Enoxaparin 40 MG/0.4 ML Syringe SUBCUT SCH (17:35)
[2016-12-30] MEDS ORDERED: Insulin Detemir 100 Units/ML 3 ML Pen SUBCUT SCH (20:00)
[2016-12-30] MEDS: Simvastatin 40 MG Tab PO SCH (21:16)
[2016-12-31] MEDS: Sodium Chloride 0.45% 1,000 ML IV SCH (06:48)
[2016-12-31] MEDS: Gabapentin 100 MG Cap PO SCH ×3 (08:14→19:50)
[2016-12-31] MEDS: Metoprolol Succinate 100 MG Tab.ER PO SCH (08:14)
[2016-12-31] MEDS: metFORMIN 500 MG Tab PO SCH (08:14)
[2016-12-31] MEDS: cloNIDine 0.1 MG Tab PO SCH ×2 (08:15→19:50)
[2016-12-31] MEDS: Aspirin 325 MG Tab.EC PO SCH (08:15)
[2016-12-31] MEDS: Hydrochlorothiazide 12.5 MG Cap PO SCH (08:16)
[2016-12-31] MEDS: Lisinopril 20 MG Tab PO SCH (08:16)
[2016-12-31] MEDS: Potassium Chloride 10 MEQ Tab.ER PO SCH ×2 (08:17→17:45)
[2016-12-31] MEDS ORDERED: Iopamidol 755 Mg/ML 100 ML Bottle IVPUSH ONE ×2 (08:37→08:43)
--- NOTE | 2016-12-31 09:35 | PN ---
DATE: 12/31/2016 S: Analia lares apparently admitted on Saturday after they found her. She had a syncopal episode, question etiology, really does not remember any event, a little bit short of breath, a little bit confused today. CAT scan, C-spine, and head looks okay. O: GENERAL: The patient appeared to be little oriented. NECK: Supple. CHEST: Clear. CARDIAC: Regular. ABDOMEN: Soft. ASSESSMENT: SYNCOPE, QUESTION TRANSIENT ISCHEMIC ATTACK. WE WILL GET A CTA OF HER HEAD AND NECK TODAY. ELEVATED D-DIMER, SYNCOPE, WE WILL DO A CTA OF HER CHEST. FOLLOW HER POTASSIUM CLOSELY. GET A MAGNESIUM LEVEL ON HER. GUILHERME/ELBA /[id number]
[2016-12-31] MEDS: Simvastatin 40 MG Tab PO SCH (19:51)
[2016-12-31] MEDS ORDERED: Enoxaparin 40 MG/0.4 ML Syringe SUBCUT SCH (20:00)
[2016-12-31] MEDS ORDERED: Insulin Detemir 100 Units/ML 3 ML Pen SUBCUT SCH (20:00)
[2017-01-01] MEDS: Aspirin 325 MG Tab.EC PO SCH (08:32)
[2017-01-01] MEDS: Hydrochlorothiazide 12.5 MG Cap PO SCH (08:33)
[2017-01-01] MEDS: cloNIDine 0.1 MG Tab PO SCH (08:33)
[2017-01-01] MEDS: Potassium Chloride 10 MEQ Tab.ER PO SCH (08:33)
[2017-01-01] MEDS: Gabapentin 100 MG Cap PO SCH ×2 (08:34→14:53)
[2017-01-01] MEDS: Metoprolol Succinate 100 MG Tab.ER PO SCH (08:34)
[2017-01-01] MEDS: Lisinopril 20 MG Tab PO SCH (08:34)
--- NOTE | 2017-01-01 09:22 | PN ---
DATE: 01/01/2017 S: Analia Rodriguez admitted with confusion, question drug overdose, question TIA, elevated D-dimer. O: GENERAL: The patient is alert today. NECK: Supple. CHEST: Clear. CARDIAC: Regular. ASSESSMENT: CONFUSION, QUESTION TRANSIENT ISCHEMIC ATTACK. I AM AWAITING THE CTA RESULTS ON HER. GUILHERME/ELBA /[id number]
[2017-01-01 17:47] VITALS: BP 148/76
--- NOTE | 2017-01-02 08:45 | DISCH ---
HOSPITAL COURSE: This lady came in somewhat confused, mainly diagnosis of probable TIA. We did go ahead and do CTA neck and head. She does have 80% stenosis of internal carotid artery. CTA head looked good. CAT scan looked good. She had a high D-dimer, so I did CTA of her chest that also was normal. LABORATORY DATA: Rest of labs, she was mildly hypoglycemic. So we will back off insulin when she goes home. Panel 8 looked really good. Other than, she was hypokalemic, when she came in. Back corrected. C-reactive protein mildly elevated. Urinalysis looked okay other than she had positive toxicology for pain meds. DISPOSITION: The patient is now discharged home. We will see her back in the clinic next week. DISCHARGE MEDICATIONS: Home meds other than I decreased her insulin to 34 units and added Plavix 75. DISCHARGE DIAGNOSIS: 1. TRANSIENT ISCHEMIC ATTACK SECONDARY TO CAROTID STENOSIS. 2. DIABETES MELLITUS. 3. PERIPHERAL NEUROPATHY. 4. HYPERTENSION. 5. HYPERLIPIDEMIA. GUILHERME/ELBA /[id number]
== END 2017-01-01 17:20 | disposition home or self-care (01) | DRG 68 ==
LOC: CC.ED 14:41 → UNDOADMIN 18:17 → CC.MS 18:17
PROVIDERS: ADMIT Physician Assistant Medical; ATTEND General Practice
DX: R41.82 Altered mental status, unspecified (principal); I65.29 Occlusion and stenosis of unspecified carotid artery; Z79.82 Long term (current) use of aspirin; Z79.4 Long term (current) use of insulin; E78.00 Pure hypercholesterolemia, unspecified; I10 Essential (primary) hypertension; G47.30 Sleep apnea, unspecified; K21.9 Gastro-esophageal reflux disease without esophagitis; M81.0 Age-related osteoporosis without current pathological fracture; F41.9 Anxiety disorder, unspecified; E78.5 Hyperlipidemia, unspecified; E11.42 Type 2 diabetes mellitus with diabetic polyneuropathy
CPT/HCPCS: 36415; 36600; 51701; 70450; 71010; 72125; 80053; 80305; 81003; 82140; 82550; 82803; 82962; 83605; 83615; 84484; 85025; 85379; 86140; 87804 ×2; 93005; 96374; 99285; G0479; J2310; J7030; 70496; 70498; 71275; 80048; 83735; 93010; A9270-GY; G0480; J1650; J1815-GY; Q9967

== ENCOUNTER 2017-04-13 16:45 | Inpatient (IN) | payer MEDICARE, BC ==
--- NOTE | 2017-04-13 17:12 | EDM.PDOC ---
ED HPI GENERAL MEDICAL PROBLEM - General Chief Complaint: General Stated Complaint: lightheaded, fall @ home, edema Time Seen by Provider: 04/13/17 16:56 Source of Information: Reports: Patient, Family History Limitations: Reports: No Limitations - History of Present Illness Onset: Gradual, Other (3 GLF in past 24 hours-"blacks Out") Duration: Day(s):, Getting Worse, Recurring Improves with: Reports: Rest Worsens with: Reports: Movement Context: Denies: Sick Contact, Trauma Associated Symptoms: Reports: Weakness. 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 - Related Data Allergies Allergy/AdvReac Type Severity Reaction Status Date / Time nabumetone Allergy Cannot Verified 04/13/17 16:57 Remember oxycodone HCl [From Percocet] Allergy Hallucinati Verified 04/13/17 16:54 ons Home Meds: Home Meds Aspirin 325 mg PO DAILY 05/02/14 [History] Hydrocodone/Acetaminophen [Bandana 5-325] 1 - 2 tab PO Q4H PRN 05/02/14 [History] Metoprolol Succinate [Toprol XL 100mg] 100 mg PO DAILY 05/02/14 [History] Simvastatin 80 mg PO BEDTIME 05/02/14 [History] cloNIDine [Catapres] 0.1 mg PO BID 05/02/14 [History] traZODone 50 mg PO BEDTIME 05/02/14 [History] Cholecalciferol (Vitamin D3) [Vitamin D3] 1,000 unit PO DAILY 12/24/15 [History] metFORMIN [Glucophage] 500 mg PO BIDMEALS 08/08/16 [History] Amitriptyline HCl 75 mg PO BEDTIME 12/29/16 [History] Gabapentin [Neurontin] 300 mg PO TID 12/29/16 [History] Clopidogrel [Plavix] 75 mg PO DAILY #30 tablet 01/01/17 [Rx] Cyanocobalamin (Vitamin B-12) [Vitamin B-12] 1 ml IM Q30D 04/13/17 [History] HYDROmorphone HCl [Hydromorphone HCl] 2 mg PO BEDTIME PRN 04/13/17 [History] Insulin Glarg,Human.Rec.Analog [Lantus] 14 units SUBCUT BEDTIME 04/13/17 [ History] Lisinopril 2.5 mg PO DAILY 04/13/17 [History] Omeprazole 20 mg PO DAILY 04/13/17 [History] Past Medical History HEENT History: Reports: Allergic Rhinitis Cardiovascular History: Reports: High Cholesterol, Hypertension Respiratory History: Reports: Sleep Apnea Gastrointestinal History: Reports: GERD Genitourinary History: Reports: None, UTI, Recurrent 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, Musculoskeletal History: Reports: Arthritis, Back Pain, Chronic, Fracture, Osteoporosis, RA, Other (See Below) Other Musculoskeletal History: Muscle spasms, arthralgia Neurological History: Reports: TIA, Other (See Below) Other Neuro History: daughter states pt has had a few ministrokes Psychiatric History: Reports: Anxiety, Other (See Below) Other Psychiatric History: Insomnia Endocrine/Metabolic History: Reports: Diabetes, Type II Hematologic History: Reports: None Immunologic History: Reports: None Oncologic (Cancer) History: Reports: Breast Dermatologic History: Reports: Other (See Below) Other Dermatologic History: Actinic keratosis - Past Surgical History HEENT Surgical History: Reports: Cataract Surgery GI Surgical History: Reports: Appendectomy, Cholecystectomy, Hernia, Inguinal Female Surgical History: Reports: Hysterectomy, Oophorectomy, Other (See Below) Musculoskeletal Surgical History: Reports: Other (See Below) Social & Family History - Family History Family Medical History: Noncontributory - Tobacco Use Smoking Status *Q: Never Smoker Second Hand Smoke Exposure: No - Caffeine Use Caffeine Use: Reports: None, Coffee - Alcohol Use Alcohol Use History: No - Recreational Drug Use Recreational Drug Use: No - Living Situation & Occupation Living situation: Reports: , Alone ED ROS GENERAL - Review of Systems Review Of Systems: See Below Constitutional: Reports: Weakness, Fatigue. Denies: Fever, Chills, Malaise, Night Sweats, Decreased Appetite HEENT: Reports: No Symptoms, Vertigo Respiratory: Reports: No Symptoms. Denies: Shortness of Breath, Wheezing, Cough Cardiovascular: Reports: Blood Pressure Problem, Edema, Lightheadedness. Denies : Chest Pain, Claudication Endocrine: Reports: Fatigue, High Glucose GI/Abdominal: Reports: No Symptoms. Denies: Black Stool, Constipation, Diarrhea : Reports: Frequency, Urgency ( 4 Para 4 ). Denies: Incontinence Musculoskeletal: Reports: Arm Pain, Back Pain, Muscle Pain, Muscle Stiffness Skin: Reports: No Symptoms Neurological: Reports: Confusion, Dizziness, Paresthesia, Difficulty Walking, Weakness, Gait Disturbance Psychiatric: Reports: Depression Hematologic/Lymphatic: Reports: No Symptoms Immunologic: Reports: No Symptoms ED EXAM, GENERAL - Physical Exam Exam: See Below Exam Limited By: No Limitations General Appearance: Alert, WD/WN, No Apparent Distress Eye Exam: Bilateral Eye: EOMI, Normal Fundi, Normal Inspection, PERRL Ears: Normal External Exam, Normal Canal, Hearing Grossly Normal Ear Exam: Bilateral Ear: Auricle Normal, Canal Normal, TM normal Nose: Normal Inspection, Normal Mucosa Throat/Mouth: Normal Inspection, Normal Lips, Normal Teeth (Dentures) Head: Atraumatic, Normocephalic Neck: Normal Inspection, Supple, Non-Tender, Full Range of Motion Respiratory/Chest: No Respiratory Distress, Lungs Clear, Normal Breath Sounds, No Accessory Muscle Use, Chest Non-Tender Cardiovascular: Normal Peripheral Pulses, Regular Rate, Rhythm Peripheral Pulses: 2+: Brachial (L), Brachial (R), Radial (L), Radial (R), Dorsalis Pedis (L), Dorsalis Pedis (R) GI/Abdominal: Normal Bowel Sounds, Soft (Female) Exam: Deferred Rectal (Female) Exam: Deferred Back Exam: Normal Inspection, Paraspinal Tenderness, Vertebral Tenderness, Other (Chronic-Interventions Steroid in [place]) Extremities: Normal Inspection, Normal Range of Motion, Non-Tender, Normal Capillary Refill, Pedal Edema, Leg Pain. No: Jad's Sign Neurological: Alert, Oriented, CN II-XII Intact, Normal Cognition, Normal Reflexes, No Motor/Sensory Deficits Psychiatric: Normal Affect, Normal Mood Skin Exam: Warm, Dry, Intact, Normal Color, No Rash Lymphatic: No Adenopathy Course - Vital Signs Last Recorded V/S: Last Vital Signs Temp 37.2 C 04/13/17 16:50 Pulse 62 04/13/17 16:50 Resp 20 04/13/17 16:50 BP 151/105 H 04/13/17 16:50 Pulse Ox 97 04/13/17 16:50 - Orders/Labs/Meds Orders: Active Orders 24 hr Category Date Time Status CXR [Chest 2V] [CR] Stat Exams 04/13/17 17:06 Ordered CBC WITH AUTO DIFF [HEME] Stat Lab 04/13/17 17:04 Ordered CMP [COMPREHENSIVE METABOLIC PN,CMP] [CHEM] Stat Lab 04/13/17 17:04 Ordered CRP [C-REACTIVE PROTEIN] [CHEM] Stat Lab 04/13/17 17:05 Ordered PRO B-TYPE NATRIUR PEPT,BNPPRO [CHEM] Stat Lab 04/13/17 17:06 Ordered UA W/MICROSCOPIC [URIN] Stat Lab 04/13/17 17:06 Uncollected Departure - Departure Time of Disposition: 17:46 Disposition: Admitted As Inpatient 68 Clinical Impression: Altered mental status, Fall from ground level, Pain, Edema - Discharge Information Forms: ED Department Discharge MLP Sign Off - Signature Requirements MLP Sign Off: No - Problem List & Annotations (1) Fall from ground level SNOMED Code(s): 75736840 Code(s): W18.30XA - FALL ON SAME LEVEL, UNSPECIFIED, INITIAL ENCOUNTER Status: Acute (2) Edema SNOMED Code(s): 830905572, 713595000 Code(s): R60.9 - EDEMA, UNSPECIFIED Status: Acute (3) Pain SNOMED Code(s): 08885571 Code(s): R52 - PAIN, UNSPECIFIED Status: Chronic - My Orders Last 24 Hours: My Active Orders 04/13/17 17:04 CBC WITH AUTO DIFF [HEME] Stat CMP [COMPREHENSIVE METABOLIC PN,CMP] [CHEM] Stat 04/13/17 17:05 CRP [C-REACTIVE PROTEIN] [CHEM] Stat 04/13/17 17:06 CXR [Chest 2V] [CR] Stat PRO B-TYPE NATRIUR PEPT,BNPPRO [CHEM] Stat UA W/MICROSCOPIC [URIN] Stat - Assessment/Plan Admission H&P: Please use this note as an admission H&P Last 24 Hours: My Active Orders 04/13/17 17:04 CBC WITH AUTO DIFF [HEME] Stat CMP [COMPREHENSIVE METABOLIC PN,CMP] [CHEM] Stat 04/13/17 17:05 CRP [C-REACTIVE PROTEIN] [CHEM] Stat 04/13/17 17:06 CXR [Chest 2V] [CR] Stat PRO B-TYPE NATRIUR PEPT,BNPPRO [CHEM] Stat UA W/MICROSCOPIC [URIN] Stat Assessment:: Normocytic Anemia Ground Level Fall UTI Peripheral Edema Plan: Discussed with daughter and patient UTI and admission to acute care to observe for syncopal episodes. Normocytic anemia-will monitor stool guiac and orthostatic B/P Close observation and referral back to PCP for management.
[2017-04-13] MEDS ORDERED: Sodium Chloride 0.9% 10 ML Syringe FLUSH PRN (18:03)
[2017-04-13] MEDS ORDERED: Acetaminophen/HYDROcodone 325-5 MG Tab PO PRN ×2 (18:03)
[2017-04-13] MEDS ORDERED: Docusate Sodium 100 MG Cap PO PRN (18:03)
[2017-04-13] MEDS ORDERED: CYANOCOBALAMIN IM SCH (18:03)
[2017-04-13] MEDS ORDERED: Acetaminophen 325 MG Tab PO PRN (18:03)
[2017-04-13] MEDS: cefTRIAXone 1 GM Vial IVPUSH SCH (18:54)
[2017-04-13] MEDS: Sodium Chloride 0.9% 1,000 ML IV SCH (18:58)
[2017-04-13] MEDS: Amitriptyline 25 MG Tab PO SCH (19:30)
[2017-04-13] MEDS: Simvastatin 40 MG Tab PO SCH (19:30)
[2017-04-13] MEDS: Gabapentin 300 MG Cap PO SCH (19:30)
[2017-04-13] MEDS: traZODone 50 MG Tab PO SCH (19:31)
[2017-04-13] MEDS: Insulin Detemir 100 Units/ML 3 ML Pen SUBCUT SCH (19:31)
[2017-04-13] MEDS: cloNIDine 0.1 MG Tab PO SCH (19:32)
[2017-04-14] MEDS: Pantoprazole 40 MG Tab.CR PO SCH (06:34)
[2017-04-14] MEDS: Metoprolol Succinate 100 MG Tab.ER PO SCH (08:09)
[2017-04-14] MEDS: Aspirin 325 MG Tab PO SCH (08:09)
[2017-04-14] MEDS: Cholecalciferol (Vitamin D3) 1,000 Unit Tab PO SCH (08:10)
[2017-04-14] MEDS: metFORMIN 500 MG Tab PO SCH ×2 (08:10→17:28)
[2017-04-14] MEDS: Lisinopril 5 MG Tab PO SCH (08:10)
[2017-04-14] MEDS: cloNIDine 0.1 MG Tab PO SCH ×2 (08:10→19:31)
[2017-04-14] MEDS: Clopidogrel 75 MG Tab PO SCH (08:11)
[2017-04-14] MEDS: Gabapentin 300 MG Cap PO SCH ×3 (08:11→19:29)
--- NOTE | 2017-04-14 10:55 | PCM.PN ---
- General Info Date of Service: 04/14/17 Admission Dx/Problem (Free Text): Patient admitted yesterday 04/13/2017 DX- frequent falls ground level, Peripheral edema and UTI. Subjective Update: "Are you going to let me go home today. I feel so much betterl My feet are going down and are less swollen." Functional Status: Reports: pain controlled, tolerating diet, ambulating, urinating. Denies: new symptoms Pain Score: 0 - Review of Systems General: Reports: No Symptoms HEENT: Reports: glasses Pulmonary: Reports: no symptoms. Denies: shortness of breath, cough Cardiovascular: Reports: Edema (Slight ). Denies: Chest Pain, Palpitations, Dyspnea on Exertion, Lightheadedness Gastrointestinal: Reports: No symptoms, Other (No BM today-+Yesterday) Genitourinary: Denies: dysuria, frequency, burning, pain, urgency, hematuria Musculoskeletal: Reports: hand pain, back pain, other (Arthritis pain is controlled) Skin: Reports: no symptoms Neurological: Reports: No Symptoms. Denies: Confusion, Dizziness, Headache, Numbness, Paresthesia, Syncope, Tingling, Trouble Speaking, Difficulty Walking, Weakness, Change in Speech, Gait Disturbance Psychiatric: Reports: no symptoms - Patient Data Vitals - most recent: Last Vital Signs Temp 36.0 C 04/14/17 07:52 Pulse 68 04/14/17 08:09 Resp 20 04/14/17 07:52 BP 149/88 H 04/14/17 08:10 Pulse Ox 93 L 04/14/17 07:52 Orthostatic Blood Pressure [ 123/61 Sitting] Orthostatic Blood Pressure [ 96/50 Standing] Orthostatic Blood Pressure [ 123/61 Supine] Weight - most recent: 76.067 kg I&O - last 24 hours: Intake & Output 04/13/17 04/14/17 04/14/17 22:59 06:59 14:59 Intake Total 400 Balance 400 Lab Results last 24 hrs: Laboratory Results - last 24 hr 04/13/17 04/14/17 Range/Units 19:56 07:10 POC Glucose 158 H 82 (75-105) mg/dl Med Orders - Current: Current Medications Acetaminophen (Tylenol) 650 mg PO Q4H PRN PRN Reason: Pain (Mild 1-3)/fever Hydrocodone Bitart/Acetaminophen (Golden 325-5 Mg) 1 tab PO Q4H PRN PRN Reason: Pain (moderate 4-6) Amitriptyline HCl (Elavil) 75 mg PO BEDTIME [facility] Last Admin: 04/13/17 19:30 Dose: 75 mg Aspirin (Aspirin) 325 mg PO DAILY [facility] Last Admin: 04/14/17 08:09 Dose: 325 mg Ceftriaxone Sodium (Rocephin) 1 gm IVPUSH Q24H [facility] Last Admin: 04/13/17 18:54 Dose: 1 gm Cholecalciferol (Vitamin D3) 1,000 units PO DAILY [facility] Last Admin: 04/14/17 08:10 Dose: 1,000 units Clonidine HCl (Catapres) 0.1 mg PO BID [facility] Last Admin: 04/14/17 08:10 Dose: 0.1 mg Clopidogrel Bisulfate (Plavix) 75 mg PO DAILY [facility] Last Admin: 04/14/17 08:11 Dose: 75 mg Docusate Sodium (Colace) 100 mg PO BID PRN PRN Reason: Constipation Gabapentin (Neurontin) 300 mg PO TID [facility] Last Admin: 04/14/17 08:11 Dose: 300 mg Sodium Chloride (Normal Saline) 1,000 mls @ 50 mls/hr IV ASDIRECTED [facility] Last Admin: 04/13/17 18:58 Dose: 50 mls/hr Insulin Detemir (Levemir) 14 unit SUBCUT BEDTIME [facility] Last Admin: 04/13/17 19:31 Dose: 14 units Lisinopril (Prinivil) 2.5 mg PO DAILY [facility] Last Admin: 04/14/17 08:10 Dose: 2.5 mg Metformin HCl (Glucophage) 500 mg PO BIDMEALS [facility] Last Admin: 04/14/17 08:10 Dose: 500 mg Metoprolol Succinate (Toprol Xl) 100 mg PO DAILY [facility] Last Admin: 04/14/17 08:09 Dose: 100 mg Pantoprazole Sodium (Protonix) 40 mg PO ACBRK [facility] Last Admin: 04/14/17 06:34 Dose: 40 mg Simvastatin (Zocor) 80 mg PO BEDTIME [facility] Last Admin: 04/13/17 19:30 Dose: 80 mg Sodium Chloride (Saline Flush) 10 ml FLUSH ASDIRECTED PRN PRN Reason: Keep Vein Open Trazodone HCl (Trazodone) 50 mg PO BEDTIME [facility] Last Admin: 04/13/17 19:31 Dose: 50 mg Discontinued Medications Non-Formulary Medication (Cyanocobalamin (Vitamin B-12) [Vitamin B-12]) 1 ml IM Q30D [facility] Last Admin: 04/13/17 19:10 Dose: Not Given - Exam Quality Assessment: DVT prophylaxis. No: supplemental oxygen, skin breakdown General: alert, oriented, cooperative, no acute distress HEENT: Pupils equal, Pupils reactive, EOMI, Mucous membr. moist/pink. No: Scleral icterus Neck: supple, trachea midline, no JVD, no thyromegaly Lungs: Clear to auscultation, Normal respiratory effort Cardiovascular: Regular Rate, Regular Rhythm Abdomen: soft, no tenderness, no distension (Female) Exam: Deferred Back Exam: Normal Inspection, Paraspinal Tenderness. No: CVA Tenderness (L), CVA Tenderness (R) Extremities: edema (Trace non pitting) Peripheral Pulses: 2+: Brachial (L), Brachial (R), Radial (L), Radial (R), Posterior Tibial (R), Dorsalis Pedis (L) Skin: warm, dry, intact Wound/Incisions: other (N/A) Neurological: no new focal deficit, normal gait, normal speech, normal tone, strength equal bilateral, reflexes equal bilateral Psy/Mental Status: alert, normal affect, normal mood - Problem List & Annotations (1) Fall from ground level SNOMED Code(s): 98053800 Code(s): W18.30XA - FALL ON SAME LEVEL, UNSPECIFIED, INITIAL ENCOUNTER Status: Acute Current Visit: Yes (2) Edema SNOMED Code(s): 975428399, 321208122 Code(s): R60.9 - EDEMA, UNSPECIFIED Status: Acute Current Visit: Yes (3) Pain SNOMED Code(s): 43609180 Code(s): R52 - PAIN, UNSPECIFIED Status: Chronic Current Visit: Yes - Problem List Review Problem List Initiated/Reviewed/Updated: Yes - My Orders Last 24 Hours: My Active Orders 04/13/17 17:49 Resuscitation Status Routine 04/13/17 18:11 Antiembolic Devices [RC] 1000,2200 GUY Hose [Antiembolic Hose] [OM.PC] Routine 04/13/17 18:18 OCCULT BLD DIAGNOS Routine 04/13/17 18:30 Orthostatic Vital Signs [RC] .PRN Sodium Chloride 0.9% [Normal Saline] 1,000 ml IV ASDIRECTED 04/14/17 Lunch Consistent Carbohydrate Diet [DIET] - Assessment Assessment:: UTI-ATX treatment tolerating well GLF-Resolved Peripheral edema-resolving - Plan Plan:: 04/14/2017 Continue current treatment plan with close observation and assistance with ADls. ATX for UTI Monitor medications and effects. Referral back to Dr. Linares for further treatment in the am. Patient agrees to plan-verbalizes understanding.
[2017-04-14] MEDS: Sodium Chloride 0.9% 1,000 ML IV SCH (13:24)
[2017-04-14] MEDS: cefTRIAXone 1 GM Vial IVPUSH SCH (17:28)
[2017-04-14] MEDS: Amitriptyline 25 MG Tab PO SCH (19:29)
[2017-04-14] MEDS: traZODone 50 MG Tab PO SCH (19:30)
[2017-04-14] MEDS: Insulin Detemir 100 Units/ML 3 ML Pen SUBCUT SCH (19:31)
[2017-04-14] MEDS: Simvastatin 40 MG Tab PO SCH (19:31)
[2017-04-15] MEDS: Gabapentin 300 MG Cap PO SCH ×3 (08:23→20:14)
[2017-04-15] MEDS: Aspirin 325 MG Tab PO SCH (08:23)
[2017-04-15] MEDS: Clopidogrel 75 MG Tab PO SCH (08:23)
[2017-04-15] MEDS: Lisinopril 5 MG Tab PO SCH (08:24)
[2017-04-15] MEDS: metFORMIN 500 MG Tab PO SCH ×2 (08:25→17:52)
[2017-04-15] MEDS: Pantoprazole 40 MG Tab.CR PO SCH (08:25)
[2017-04-15] MEDS: Metoprolol Succinate 100 MG Tab.ER PO SCH (08:25)
[2017-04-15] MEDS: cloNIDine 0.1 MG Tab PO SCH ×2 (08:25→20:14)
[2017-04-15] MEDS: Cholecalciferol (Vitamin D3) 1,000 Unit Tab PO SCH (08:25)
--- NOTE | 2017-04-15 09:55 | PN ---
DATE: 04/15/2017 S: This is an elderly white female, apparently who has fallen at home, had been diagnosed with UTI but she is also short of breath and has swollen legs. O: HEENT: The patient is alert and orientated. VITAL SIGNS: As noted. NECK: Supple without thyromegaly, lymphadenopathy, or neck vein distention. CHEST: Clear. CARDIAC: Regular. ABDOMEN: Soft. EXTREMITIES: +1 bilateral pretibial edema. She has a lot of tenderness in both calf areas, question DVT. P: We will get appropriate lab work and studies on her. GUILHERME/ELBA /[id number]
[2017-04-15] MEDS: Sodium Chloride 0.9% 1,000 ML IV SCH (10:23)
[2017-04-15] MEDS: cefTRIAXone 1 GM Vial IVPUSH SCH (17:55)
[2017-04-15] MEDS: Amitriptyline 25 MG Tab PO SCH (20:14)
[2017-04-15] MEDS: Simvastatin 40 MG Tab PO SCH (20:14)
[2017-04-15] MEDS: traZODone 50 MG Tab PO SCH (20:14)
[2017-04-15] MEDS: Insulin Detemir 100 Units/ML 3 ML Pen SUBCUT SCH (20:16)
[2017-04-16] MEDS: Pantoprazole 40 MG Tab.CR PO SCH (06:36)
[2017-04-16] MEDS: metFORMIN 500 MG Tab PO SCH (07:32)
[2017-04-16] MEDS: Clopidogrel 75 MG Tab PO SCH (07:32)
[2017-04-16] MEDS: Lisinopril 5 MG Tab PO SCH (07:33)
[2017-04-16] MEDS: cloNIDine 0.1 MG Tab PO SCH (07:33)
[2017-04-16] MEDS: Cholecalciferol (Vitamin D3) 1,000 Unit Tab PO SCH (07:33)
[2017-04-16] MEDS: Metoprolol Succinate 100 MG Tab.ER PO SCH (07:34)
[2017-04-16] MEDS: Gabapentin 300 MG Cap PO SCH ×2 (07:35→14:17)
[2017-04-16] MEDS ORDERED: Aspirin 325 MG Tab.EC PO SCH (08:00)
--- NOTE | 2017-04-16 09:15 | PN ---
DATE: 04/16/2017 S: Analia Rodriguez is an elderly white female who came in with a question of UTI. She had fallen at home. Lot of edema of the legs. O: EXTREMITIES: On examination, she still has edema. NECK: Supple. CHEST: Clear. CARDIAC: Regular. ASSESSMENT: NEAR SYNCOPE, QUESTION URINARY TRACT INFECTION, AND EDEMA. P: We are awaiting ultrasound of her lower extremities. I may need to adjust her medication to see if the metformin might be doing it or the Toprol. GUILHERME/ELBA /[id number]
[2017-04-16 12:13] VITALS: BP 122/63
--- NOTE | 2017-04-17 14:07 | DISCH ---
HOSPITAL COURSE: Analia Rodriguez came in after she had fallen at home, was somewhat confused. Question whether she had UTI, started on Rocephin. I am not so sure she had a UTI, but she was short of breath, swollen legs, so I did do a Doppler of her lower extremities. There was no evidence of DVTs. Sedimentation rate was high at 70, which she has had before and we have worked her up for that and blood sugars were good while stay here. C-reactive protein was 1, creatinine was 1.1. CBC; hemoglobin was 9.5, question whether she possibly could have polymyalgia rheumatica. So we will follow her in the next week or so. DISPOSITION: The patient is now discharged to home. We will see her back in the clinic in 6 days in [place], appropriate lab work, and then we will change her medications around. DISCHARGE MEDICATIONS: Include B12 shots monthly, omeprazole 20 daily, trazodone 50 at bedtime, metformin 500 daily, clonidine 0.1 b.i.d., metoprolol 100 daily, lisinopril 5 b.i.d., Neurontin 300 t.i.d., Plavix 75 daily, vitamin D3 of 1000 daily, ASA 325, amitriptyline 75 at bedtime, insulin 16 units. I am going to add torsemide 20 mg daily for edema. DISCHARGE DIAGNOSIS: 1. FALL, CONFUSION PROBABLY FROM THE DILAUDID THAT SOMEBODY GAVE HER. 2. QUESTION URINARY TRACT INFECTION. 3. EDEMA, SHORTNESS OF BREATH. 4. DIABETES MELLITUS. 5. HYPERTENSION. 6. HYPERLIPIDEMIA. 7. PERIPHERAL NEUROPATHY. 8. DEPRESSION. PLAN: Change medications as above. SADIA /[id number]
== END 2017-04-16 17:00 | disposition home or self-care (01) | DRG 690 ==
LOC: CC.ED 16:45 → UNDOADMIN 17:54 → CC.MS 17:54
PROVIDERS: ADMIT Nurse Practitioner; ATTEND General Practice
DX: N39.0 Urinary tract infection, site not specified (principal); W18.30XA Fall on same level, unspecified, initial encounter; R06.9 Unspecified abnormalities of breathing; D64.9 Anemia, unspecified; W19.XXXA Unspecified fall, initial encounter; R60.9 Edema, unspecified; R06.02 Shortness of breath; E11.9 Type 2 diabetes mellitus without complications; I10 Essential (primary) hypertension; E78.5 Hyperlipidemia, unspecified; E11.42 Type 2 diabetes mellitus with diabetic polyneuropathy; F32.9 Major depressive disorder, single episode, unspecified; K21.9 Gastro-esophageal reflux disease without esophagitis; G47.33 Obstructive sleep apnea (adult) (pediatric); M19.90 Unspecified osteoarthritis, unspecified site; R29.6 Repeated falls; R55 Syncope and collapse
CPT/HCPCS: 36415; 71020; 80053; 81001; 82962; 83735; 83880; 85025; 85379; 85651; 86140; 99285; A9270-GY; G0365; J0696; J1815-GY; J7030

== ENCOUNTER → 2017-05-31 | Day surgery (SDC) | payer MEDICARE, BC ==
[~2017-05-31] MED LIST: Lactated Ringers 1,000 ML IV SCH; Propofol 200 MG/20 ML SDV IV ONE
[2017-05-31 08:31] VITALS: BP 146/84
--- NOTE | 2017-05-31 15:10 | OR ---
DATE OF OPERATION: 05/31/2017 PREOPERATIVE DIAGNOSIS: 1. CHRONIC GASTROESOPHAGEAL REFLUX DISEASE. 2. ALTERED BOWEL HABITS. POSTOPERATIVE DIAGNOSIS: 1. CHRONIC GASTROESOPHAGEAL REFLUX DISEASE. 2. ALTERED BOWEL HABITS. SURGEON: Manuel Corona MD PROCEDURE: 1. ESOPHAGOGASTRODUODENOSCOPY WITH BIOPSIES X4, TURNER. 2. FULL-LENGTH COLONOSCOPY. ANESTHESIA: INDUSTRIAL COFFEE GRINDER due to advanced age, chronic GERD. COMPLICATIONS: None. SPECIMEN: 1. Pyloric polyp biopsies x3. 2. TURNER. 3. Polyp biopsy, upper fundus/cardia. FINDINGS: 1. Full-length EGD. 2. Hiatal hernia with GERD. No esophagitis, stricturing, ulceration or Alvarado's changes. 3. Gastric polyp, upper fundus. 4. Multiple peripyloric polyps, antrum. 5. Polypoid mass, duodenal bulb near the side of pylorus. 6. Full-length colonoscopy. 7. Sigmoid diverticulosis. 8. Status post partial colectomy. RECOMMENDATIONS: Medical followup with Dr. Streeter. INDICATIONS: Ms. Rodriguez has been having some chronic reflux issues. She is also having some altered bowel habits in the form of diarrhea. Dr. Streeter sent her for both upper and lower endoscopy. DESCRIPTION OF PROCEDURE: The patient was prepped and draped, placed in the left lateral decubitus position. A lubricated Olympus gastroscope was inserted over a bit and advanced cricopharyngeus area easily intubating the esophagus. The esophageal lining was benign in its entire course. The Z-line was crisp and sharp around 36 cm. There was a hiatal hernia present with spontaneous reflux seen. No distal esophagitis, stricturing, ulceration, or Alvarado's changes. Scope easily passed into the stomach through the pylorus into the third portion of duodenum. Second and third portion of duodenum were fine as was the bulb for the most part, right while passing through the pylorus on the duodenal side, there was a polypoid-type mass without any inflammation, likely benign, but fairly large two good biopsies of that area were taken. The scope was brought back into the stomach. Retroflexed view of the upper fundus and cardia were essentially unremarkable other than a small polyp present in the fundal cardia junction. It was removed in its entirety with 2 cold forceps biopsies. Scope was straightened and the rest of the fundus appeared benign. Throughout the entire length of the stomach, I found no signs of any peptic ulcer disease. There were three small benign adenomatous type polyps in the distal antrum near the pylorus. Biopsies were taken. CLOtest was obtained. Air was then suctioned. Scope removed without complication. A lubricated Olympus colonoscope was then inserted and easily advanced to the cecum. Direct visualization of the ileocecal valve and appendiceal orifice was accomplished. The bowel prep was adequate. Upon withdrawal of the scope, throughout the entire length of the colon, I found no signs of any polyps, mass, ulceration, or bleeding sites. No vascular abnormalities or signs of colitis. Scattered diverticula were seen in the left colon. There was a partial colectomy in the anastomosis site just above the rectal vault appears benign. Retroflexion of scope in the rectum showed no perianal lesions. Air was then suctioned. Scope removed without complication. MAGDA/ELBA /[id number]
== END ==
LOC: CC.SDS 06:24
PROVIDERS: ATTEND Family Medicine
DX: D13.1 Benign neoplasm of stomach (principal); K57.30 Diverticulosis of large intestine without perforation or abscess without bleeding; K44.9 Diaphragmatic hernia without obstruction or gangrene; I10 Essential (primary) hypertension; K21.9 Gastro-esophageal reflux disease without esophagitis; Z90.49 Acquired absence of other specified parts of digestive tract; Z88.8 Allergy status to other drugs, medicaments and biological substances; Z79.82 Long term (current) use of aspirin; Z79.899 Other long term (current) drug therapy
CPT/HCPCS: 43239; 45378; 82962; 87081; J2704; J7120; 00810; 88305; 88342

== ENCOUNTER 2017-06-06 21:28 | Emergency (ER) | payer MEDICARE, BC ==
[2017-06-06 21:38] VITALS: BP 109/70
[2017-06-06] MEDS ORDERED: Acetaminophen 325 MG Tab PO PRN (22:03)
--- NOTE | 2017-06-06 22:19 | EDM.PDOC ---
ED HPI GENERAL MEDICAL PROBLEM - General Chief Complaint: General Stated Complaint: weakness Time Seen by Provider: 06/06/17 22:10 Source of Information: Reports: Patient History Limitations: Reports: No Limitations - History of Present Illness INITIAL COMMENTS - FREE TEXT/NARRATIVE: States that "since she has been out of bed this morning she hasn't felt right" Feels dizzy and off balance. Family states that she has been losing balance but there has been somebody there to grab her so she hasn't fallen. Admits that she has had inner ear problems many years ago and it feels like that but not as bad. No headache with it. No injury. No specific symptoms other than above. Onset: Today, Gradual Location: Reports: Head Associated Symptoms: Reports: Weakness. Denies: Chest Pain, Headaches, Nausea/ Vomiting, Shortness of Breath - Related Data Allergies Allergy/AdvReac Type Severity Reaction Status Date / Time meperidine [From Demerol] Allergy Cannot Verified 06/06/17 21:44 Remember nabumetone Allergy Cannot Verified 06/06/17 21:44 Remember oxycodone HCl [From Percocet] Allergy Hallucinati Verified 06/06/17 21:44 ons Home Meds: Home Meds Aspirin 325 mg PO DAILY 05/02/14 [History] Simvastatin 80 mg PO BEDTIME 05/02/14 [History] cloNIDine [Catapres] 0.1 mg PO BID 05/02/14 [History] Cholecalciferol (Vitamin D3) [Vitamin D3] 1,000 unit PO DAILY 12/24/15 [History] Amitriptyline HCl 75 mg PO BEDTIME 12/29/16 [History] Gabapentin [Neurontin] 300 mg PO TID 12/29/16 [History] Cyanocobalamin (Vitamin B-12) [Vitamin B-12] 1 ml IM Q30D 04/13/17 [History] Omeprazole 20 mg PO DAILY 04/13/17 [History] Insulin Glarg,Human.Rec.Analog [Lantus] 16 units SUBCUT BEDTIME #0 04/16/17 [Rx ] Lisinopril 5 mg PO DAILY #0 04/16/17 [Rx] Metoprolol Succinate 50 mg PO DAILY #30 tab.er.24h 04/16/17 [Rx] Torsemide [Demadex] 20 mg PO DAILY #30 tablet 04/16/17 [Rx] metFORMIN [Glucophage] 500 mg PO DAILY #0 04/16/17 [Rx] Potassium Chloride 10 meq PO DAILY 05/30/17 [History] Past Medical History HEENT History: Reports: Allergic Rhinitis Cardiovascular History: Reports: High Cholesterol, Hypertension Other Cardiovascular History: asymptomatic left cardiac stenosis Respiratory History: Reports: Sleep Apnea Gastrointestinal History: Reports: GERD Genitourinary History: Reports: None, UTI, Recurrent Other Genitourinary History: nocturia DELIVERY 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: None, Musculoskeletal History: Reports: Arthritis, Back Pain, Chronic, Fracture, Osteoporosis, RA, Other (See Below) Other Musculoskeletal History: Muscle spasms, arthralgia Neurological History: Reports: TIA, Other (See Below) Other Neuro History: daughter states pt has had a few ministrokes Psychiatric History: Reports: Anxiety, Other (See Below) Other Psychiatric History: Insomnia Endocrine/Metabolic History: Reports: Diabetes, Type II Hematologic History: Reports: None Immunologic History: Reports: None Oncologic (Cancer) History: Reports: Breast Dermatologic History: Reports: Other (See Below) Other Dermatologic History: Actinic keratosis - Past Surgical History HEENT Surgical History: Reports: Cataract Surgery GI Surgical History: Reports: Appendectomy, Cholecystectomy, Hernia, Inguinal Female Surgical History: Reports: Hysterectomy, Oophorectomy, Other (See Below) Musculoskeletal Surgical History: Reports: Other (See Below) Social & Family History - Family History Family Medical History: Noncontributory - Tobacco Use Smoking Status *Q: Never Smoker Second Hand Smoke Exposure: No - Caffeine Use Caffeine Use: Reports: Coffee - Recreational Drug Use Recreational Drug Use: No - Living Situation & Occupation Living situation: Reports: , Alone ED ROS GENERAL - Review of Systems Review Of Systems: See Below Constitutional: Reports: Weakness. Denies: Fever, Chills HEENT: Reports: Glasses. Denies: Vision Change Respiratory: Reports: No Symptoms Cardiovascular: Reports: No Symptoms GI/Abdominal: Reports: No Symptoms : Reports: No Symptoms Musculoskeletal: Reports: No Symptoms Skin: Reports: No Symptoms Neurological: Reports: Dizziness. Denies: Headache ED EXAM, GENERAL - Physical Exam Exam: See Below Exam Limited By: No Limitations General Appearance: Alert, WD/WN, No Apparent Distress Eye Exam: Bilateral Eye: PERRL Ears: Normal External Exam, Normal Canal, Normal TMs Nose: Normal Inspection Throat/Mouth: Normal Inspection, Normal Oropharynx, No Airway Compromise Head: Atraumatic, Normocephalic Neck: Normal Inspection, Supple, Non-Tender, Full Range of Motion Respiratory/Chest: No Respiratory Distress, Lungs Clear, Normal Breath Sounds Cardiovascular: Regular Rate, Rhythm, No Edema GI/Abdominal: Normal Bowel Sounds, Soft, Non-Tender, No Organomegaly Back Exam: Normal Inspection Extremities: Normal Inspection, No Pedal Edema Neurological: Alert, Oriented Skin Exam: Warm, Dry, Intact Course - Vital Signs Last Recorded V/S: Last Vital Signs Temp 99.2 F 06/06/17 21:29 Pulse 91 06/06/17 21:29 Resp 18 06/06/17 21:29 BP 109/70 06/06/17 21:29 Pulse Ox 98 06/06/17 21:29 - Orders/Labs/Meds Orders: Active Orders 24 hr Category Date Time Status CREATINE KINASE,CK [CHEM] Stat Lab 06/06/17 21:55 Ordered LACTATE DEHYDROGENASE,LDH [CHEM] Stat Lab 06/06/17 21:55 Ordered TROPONIN I [CHEM] Stat Lab 06/06/17 21:55 Ordered UA W/MICROSCOPIC [URIN] Stat Lab 06/06/17 21:35 Ordered EKG 12 Lead [EK] Routine Ther 06/06/17 21:55 Ordered Labs: Laboratory Tests 06/06/17 Range/Units 22:00 WBC 7.9 (5.0-10.0) 10^3/uL RBC 3.50 L (4.00-5.50) 10^6/uL Hgb 9.8 L (12.0-16.0) g/dL Hct 32.1 L (37.0-47.0) % MCV 91.7 (82.0-94.0) fL MCH 28.0 (27.0-32.0) pg MCHC 30.5 L (33.0-38.0) g/dL RDW Coeff of Roxanna 13.4 (11.0-15.0) % Plt Count 368 (150-400) 10^3/uL Neut % (Auto) 70.7 (35-85) % Lymph % (Auto) 16.4 (10-55) % [place] % (Auto) 8.2 (0-16) % Eos % (Auto) 4.3 (0-5) % Baso % (Auto) 0.4 (0-3) % Neut # (Auto) 5.60 (1.80-7.00) 10^3/uL Lymph # (Auto) 1.30 (1.00-4.80) 10^3/uL [place] # (Auto) 0.65 (0.00-0.80) 10^3/uL Eos # (Auto) 0.34 (0.00-0.45) 10^3/uL Baso # (Auto) 0.03 10^3/uL Departure - Departure Time of Disposition: 22:32 Disposition: Home, Self-Care 01 Clinical Impression: Hypokalemia due to inadequate potassium intake - Discharge Information Forms: ED Department Discharge Additional Instructions: take potassium twice a day. Recheck with Dr. Linares on Saturday afternoon in [place] to recheck Potassium - You will need to call and make appt tomorrow. Drink plenty of fluids Return sooner if symptoms changes or get worse. - Problem List & Annotations (1) Hypokalemia due to inadequate potassium intake SNOMED Code(s): 84288763 Code(s): E87.6 - HYPOKALEMIA Status: Acute Priority: High - Problem List Review Problem List Initiated/Reviewed/Updated: Yes - My Orders Last 24 Hours: My Active Orders 06/06/17 21:35 UA W/MICROSCOPIC [URIN] Stat 06/06/17 21:55 CREATINE KINASE,CK [CHEM] Stat LACTATE DEHYDROGENASE,LDH [CHEM] Stat TROPONIN I [CHEM] Stat EKG 12 Lead [EK] Routine - Assessment/Plan Last 24 Hours: My Active Orders 06/06/17 21:35 UA W/MICROSCOPIC [URIN] Stat 06/06/17 21:55 CREATINE KINASE,CK [CHEM] Stat LACTATE DEHYDROGENASE,LDH [CHEM] Stat TROPONIN I [CHEM] Stat EKG 12 Lead [EK] Routine
[2017-06-06] MEDS ORDERED: Potassium Chloride 10 MEQ Tab.ER PO ONE (22:47)
[2017-06-06] MEDS ORDERED: Potassium Chloride 10 MEQ Tab.ER ONE (23:05)
== END 2017-06-06 23:09 | disposition home or self-care (01) ==
LOC: CC.ED 21:28
DX: E87.6 Hypokalemia (principal); E78.00 Pure hypercholesterolemia, unspecified; I10 Essential (primary) hypertension; K21.9 Gastro-esophageal reflux disease without esophagitis; M19.90 Unspecified osteoarthritis, unspecified site; E11.9 Type 2 diabetes mellitus without complications; Z98.49 Cataract extraction status, unspecified eye; Z90.49 Acquired absence of other specified parts of digestive tract; Z87.440 Personal history of urinary (tract) infections; Z90.710 Acquired absence of both cervix and uterus; Z88.8 Allergy status to other drugs, medicaments and biological substances; Z88.5 Allergy status to narcotic agent; Z79.82 Long term (current) use of aspirin; Z79.4 Long term (current) use of insulin; Z79.84 Long term (current) use of oral hypoglycemic drugs
CPT/HCPCS: 36415; 80048; 81001; 82550; 83615; 84484; 85025; 99285; A9270; 93005; 93010; 99284

== ENCOUNTER 2017-06-23 19:35 | Observation (INO) | payer MEDICARE, BC ==
[2017-06-23 20:57] LABS: CHLORIDE,CL 102 mEq/L (98-106); SODIUM,NA 142 mEq/L (136-145)
--- NOTE | 2017-06-23 21:40 | EDM.PDOC ---
ED HPI GENERAL MEDICAL PROBLEM - General Chief Complaint: General Stated Complaint: confused Time Seen by Provider: 06/23/17 20:30 Source of Information: Reports: Patient, Family History Limitations: Reports: No Limitations - History of Present Illness INITIAL COMMENTS - FREE TEXT/NARRATIVE: Patient presents to the ED with complaints of weakness, confusion and daughter concerned of dehydration as she hasn't been eating or drinking for the last few days and hasn't been taking her pills. She doesn't have a particular reason to not be taking her meds. States has only been eating one meal a day and daughter states it has been a source of contention between them due to her diabetes. Daughter was helping her with her meds and insulin until they had a "disagreement". Daughter noted for the last 4-5 days she hasn't taken any meds except her insulin. Patient was here 2 weeks ago with the same concern, potassium was low at that time. They did increase her oral dose at that time. Daughter is concerned that much of it is related to depression and "being stubborn" but when she was on higher doses of antidepressants she did not do well either so family doesn't want more meds. Daughter states that her legs were so weak tonight that could hardly get her up from the supper table. Fell asleep while eating. Friend that is here is also concerned about her status due to same problems. Onset: Gradual Duration: Hour(s): Location: Reports: Generalized Severity: Mild Associated Symptoms: Reports: Confusion, Weakness. Denies: Chest Pain, Cough, Fever/Chills, Headaches, Nausea/Vomiting, Shortness of Breath, Syncope Bilateral Lower Leg Pain Score (Numeric/FACES): 3 - Related Data Allergies Allergy/AdvReac Type Severity Reaction Status Date / Time meperidine [From Demerol] Allergy Cannot Verified 06/06/17 21:44 Remember nabumetone Allergy Cannot Verified 06/06/17 21:44 Remember oxycodone HCl [From Percocet] Allergy Hallucinati Verified 06/06/17 21:44 ons Home Meds: Home Meds Aspirin 325 mg PO DAILY 05/02/14 [History] Simvastatin 80 mg PO BEDTIME 05/02/14 [History] cloNIDine [Catapres] 0.1 mg PO BID 05/02/14 [History] Cholecalciferol (Vitamin D3) [Vitamin D3] 1,000 unit PO DAILY 12/24/15 [History] Amitriptyline HCl 75 mg PO BEDTIME 12/29/16 [History] Gabapentin [Neurontin] 300 mg PO TID 12/29/16 [History] Cyanocobalamin (Vitamin B-12) [Vitamin B-12] 1 ml IM Q30D 04/13/17 [History] Omeprazole 20 mg PO DAILY 04/13/17 [History] Insulin Glarg,Human.Rec.Analog [Lantus] 16 units SUBCUT BEDTIME #0 04/16/17 [Rx ] Lisinopril 5 mg PO DAILY #0 04/16/17 [Rx] Metoprolol Succinate 50 mg PO DAILY #30 tab.er.24h 04/16/17 [Rx] Torsemide [Demadex] 20 mg PO DAILY #30 tablet 04/16/17 [Rx] metFORMIN [Glucophage] 500 mg PO DAILY #0 04/16/17 [Rx] Potassium Chloride 10 meq PO DAILY 05/30/17 [History] Past Medical History HEENT History: Reports: Allergic Rhinitis Cardiovascular History: Reports: High Cholesterol, Hypertension Other Cardiovascular History: asymptomatic left cardiac stenosis Respiratory History: Reports: Sleep Apnea Gastrointestinal History: Reports: GERD Genitourinary History: Reports: None, UTI, Recurrent Other Genitourinary History: nocturia HOG CUTTER History: Reports: None, Musculoskeletal History: Reports: Arthritis, Back Pain, Chronic, Fracture, Osteoporosis, RA, Other (See Below) Other Musculoskeletal History: Muscle spasms, arthralgia Neurological History: Reports: TIA, Other (See Below) Other Neuro History: daughter states pt has had a few ministrokes Psychiatric History: Reports: Anxiety, Other (See Below) Other Psychiatric History: Insomnia Endocrine/Metabolic History: Reports: Diabetes, Type II Hematologic History: Reports: None Immunologic History: Reports: None Oncologic (Cancer) History: Reports: Breast Dermatologic History: Reports: Other (See Below) Other Dermatologic History: Actinic keratosis - Past Surgical History HEENT Surgical History: Reports: Cataract Surgery GI Surgical History: Reports: Appendectomy, Cholecystectomy, Hernia, Inguinal Female Surgical History: Reports: Hysterectomy, Oophorectomy, Other (See Below) Musculoskeletal Surgical History: Reports: Other (See Below) Social & Family History - Family History Family Medical History: Noncontributory - Tobacco Use Smoking Status *Q: Never Smoker Second Hand Smoke Exposure: No - Caffeine Use Caffeine Use: Reports: Coffee - Recreational Drug Use Recreational Drug Use: No - Living Situation & Occupation Living situation: Reports: , Alone ED ROS GENERAL - Review of Systems Review Of Systems: See Below Constitutional: Reports: Malaise, Weakness, Fatigue. Denies: Fever, Chills, Decreased Appetite HEENT: Denies: Ear Pain, Sinus Problem, Throat Pain, Vertigo Respiratory: Denies: Shortness of Breath, Wheezing, Sputum Cardiovascular: Denies: Chest Pain, Edema, Lightheadedness Endocrine: Reports: Fatigue GI/Abdominal: Denies: Abdominal Pain, Constipation, Diarrhea, Hematochezia, Melena, Nausea, Vomiting : Reports: Frequency Musculoskeletal: Reports: Back Pain Skin: Reports: No Symptoms Neurological: Reports: Confusion, Weakness Psychiatric: Reports: Depression ED EXAM, GENERAL - Physical Exam Exam: See Below Exam Limited By: No Limitations General Appearance: Alert, WD/WN, No Apparent Distress Ears: Normal External Exam, Normal Canal, Normal TMs Nose: Normal Inspection, Normal Mucosa, No Blood Throat/Mouth: Normal Inspection, Normal Oropharynx Head: Normocephalic Neck: Normal Inspection, Supple, Non-Tender Respiratory/Chest: No Respiratory Distress, Lungs Clear, Normal Breath Sounds Cardiovascular: Regular Rate, Rhythm GI/Abdominal: Normal Bowel Sounds, Soft, Non-Tender Extremities: Normal Inspection Neurological: Alert, Oriented Psychiatric: Flat Affect Skin Exam: Warm, Dry Course - Vital Signs Last Recorded V/S: Last Vital Signs Temp 98.6 F 06/23/17 20:28 Pulse 91 06/23/17 20:28 Resp 20 06/23/17 20:28 BP 119/66 06/23/17 20:28 Pulse Ox 94 L 06/23/17 20:28 - Orders/Labs/Meds Orders: Active Orders 24 hr Category Date Time Status UA W/MICROSCOPIC [URIN] Stat Lab 06/23/17 19:54 Uncollected Labs: Laboratory Tests 06/23/17 06/23/17 Range/Units 20:25 20:25 WBC 8.5 (5.0-10.0) 10^3/uL RBC 3.38 L (4.00-5.50) 10^6/uL Hgb 9.6 L (12.0-16.0) g/dL Hct 30.9 L (37.0-47.0) % MCV 91.4 (82.0-94.0) fL MCH 28.4 (27.0-32.0) pg MCHC 31.1 L (33.0-38.0) g/dL RDW Coeff of Roxanna 13.5 (11.0-15.0) % Plt Count 357 (150-400) 10^3/uL Neut % (Auto) 70.4 (35-85) % Lymph % (Auto) 15.5 (10-55) % [place] % (Auto) 9.1 (0-16) % Eos % (Auto) 4.6 (0-5) % Baso % (Auto) 0.4 (0-3) % Neut # (Auto) 5.96 (1.80-7.00) 10^3/uL Lymph # (Auto) 1.31 (1.00-4.80) 10^3/uL [place] # (Auto) 0.77 (0.00-0.80) 10^3/uL Eos # (Auto) 0.39 (0.00-0.45) 10^3/uL Baso # (Auto) 0.03 10^3/uL Sodium 142 (136-145) mEq/L Potassium 3.2 L D (3.5-5.0) mEq/L Chloride 102 (98-106) mEq/L Carbon Dioxide 29 (21-32) mmol/L BUN 25 H D (7-18) mg/dL Creatinine 1.6 H D (0.6-1.0) mg/dL Est Cr Clr Drug Dosing TNP Estimated GFR (MDRD) 31 L (>=60) mL/min Glucose 111 H (75-99) mg/dL Calcium 8.9 (8.4-10.1) mg/dL Total Bilirubin 0.3 (0.0-1.0) mg/dL AST 14 L (15-37) U/L ALT 19 (12-78) U/L Alkaline Phosphatase 111 (46-116) U/L Lactate Dehydrogenase 130 (100-190) U/L Creatine Kinase 92 (21-215) U/L Troponin I < 0.017 (0.00-0.06) ng/mL C-Reactive Protein 1.6 H (0.2-0.8) mg/dL Total Protein 6.7 (6.4-8.2) g/dL Albumin 3.1 L (3.4-5.0) g/dL - Re-Assessments/Exams Free Text/Narrative Re-Assessment/Exam: 06/23/17 22:03 lab results discussed with family. Potassium low at 3.2, BUN increased. She will be admitted to Dr. Linares to observation for dehydration, hypokalemia. counseling services manager to evaluate home safety and med compliance. Departure - Departure Time of Disposition: 22:04 Disposition: Refer to Observation Condition: Fair Clinical Impression: Hypokalemia, Dehydration - Discharge Information Forms: ED Department Discharge - Problem List & Annotations (1) Weakness SNOMED Code(s): 95357511 Code(s): R53.1 - WEAKNESS Status: Acute Priority: High (2) Hypokalemia due to inadequate potassium intake SNOMED Code(s): 21396841 Code(s): E87.6 - HYPOKALEMIA Status: Acute Priority: High (3) Noncompliance with medications SNOMED Code(s): 975701984 Code(s): Z91.14 - PATIENT'S OTHER NONCOMPLIANCE WITH MEDICATION REGIMEN Status: Acute Priority: High - Problem List Review Problem List Initiated/Reviewed/Updated: Yes - My Orders Last 24 Hours: My Active Orders 06/23/17 19:54 UA W/MICROSCOPIC [URIN] Stat - Assessment/Plan Admission H&P: Please use this note as an admission H&P Last 24 Hours: My Active Orders 06/23/17 19:54 UA W/MICROSCOPIC [URIN] Stat Assessment:: weakness hypokalema medication noncompliance. Plan: Admit to observation to Dr. Linares for weakness. Will rehydrate with IV fluids and replace potassium. social service consult due to medication noncompliance, home safety and family dynamics.
[2017-06-23] MEDS ORDERED: Enoxaparin 30 MG/0.3 ML Syringe SUBCUT SCH (23:00)
[2017-06-23] MEDS ORDERED: Sodium Chloride 0.9% 10 ML Syringe FLUSH PRN (23:04)
[2017-06-23] MEDS ORDERED: Ondansetron 4 MG/2 ML SDV IV PRN (23:04)
[2017-06-23] MEDS ORDERED: Simvastatin 40 MG Tab PO SCH (23:04)
[2017-06-23] MEDS ORDERED: Temazepam 15 MG Cap PO PRN (23:04)
[2017-06-23] MEDS ORDERED: Ondansetron 4 MG Tab.DIS PO PRN (23:04)
[2017-06-23] MEDS ORDERED: Acetaminophen 325 MG Tab PO PRN (23:04)
[2017-06-23] MEDS ORDERED: Magnesium Hydroxide 400 MG/5 ML Susp 30 ML Cup PO PRN (23:04)
[2017-06-23] MEDS ORDERED: INSULIN GLARG HUMAN REC ANALOG SUBCUT SCH (23:04)
[2017-06-23] MEDS ORDERED: Insulin Detemir 100 Units/ML 3 ML Pen SUBCUT SCH (23:15)
[2017-06-23] MEDS: Sodium Chloride 0.45% with KCl 1,000 ML IV SCH (23:30)
[2017-06-23] MEDS: PTOM-Gabapentin 300 MG Cap PO SCH (23:32)
[2017-06-24] MEDS ORDERED: Non-Formulary Medication 1 Each (Omeprazole [Omeprazole] 20 MG) PO SCH (08:00)
[2017-06-24] MEDS ORDERED: Metoprolol Succinate 25 MG Tab.ER PO SCH (08:00)
[2017-06-24] MEDS: Sodium Chloride 0.45% with KCl 1,000 ML IV SCH ×2 (09:09→19:17)
--- NOTE | 2017-06-24 09:15 | PN ---
DATE: 06/24/2017 S: Analia Rodriguez is an 86-year-old female came in with marked weakness, hypokalemia. O: NECK: Supple. CHEST: Clear. CARDIAC: Regular. EXTREMITIES: No edema. ASSESSMENT: ANEMIA, WEAKNESS, HYPOKALEMIA. P: I am going to watch her on telemetry 1 more day and get appropriate lab work on her. GUILHERME/ELBA /[id number]
[2017-06-24] MEDS: CLONIDINE 0.1 MG PO SCH ×2 (12:06→20:11)
[2017-06-24] MEDS: TORSEMIDE 20 MG PO SCH (12:06)
[2017-06-24] MEDS: METFORMIN 500 MG PO SCH (12:07)
[2017-06-24] MEDS: PTOM-Potassium Chloride 10 MEQ Tab.ER PO SCH ×2 (12:08→17:39)
[2017-06-24] MEDS: PTOM-Gabapentin 300 MG Cap PO SCH ×4 (12:08→20:10)
[2017-06-24] MEDS: METOPROLOL SUCC 50 MG PO SCH (12:09)
[2017-06-24] MEDS: LISINOPRIL 5 MG PO SCH (12:09)
[2017-06-24] MEDS: Pantoprazole 40 MG Tab.CR PO SCH (12:13)
[2017-06-24] MEDS: Aspirin 325 MG Tab.EC PO SCH (12:13)
[2017-06-24] MEDS: Cholecalciferol (Vitamin D3) 1,000 Unit Tab PO SCH (12:13)
[2017-06-24] MEDS ORDERED: Insulin Detemir 100 Units/ML 3 ML Pen SUBCUT SCH (20:00)
[2017-06-24] MEDS ORDERED: SIMVASTATIN 80 MG PO SCH (20:00)
[2017-06-24] MEDS ORDERED: Enoxaparin 30 MG/0.3 ML Syringe SUBCUT SCH (20:00)
[2017-06-24] MEDS ORDERED: AMITRIPTYLINE 75 MG PO SCH (20:00)
[2017-06-24] MEDS ORDERED: Amitriptyline 25 MG Tab PO SCH (22:31)
[2017-06-25] MEDS: Sodium Chloride 0.45% with KCl 1,000 ML IV SCH (05:09)
[2017-06-25] MEDS: Cholecalciferol (Vitamin D3) 1,000 Unit Tab PO SCH (07:28)
[2017-06-25] MEDS: Aspirin 325 MG Tab.EC PO SCH (07:28)
[2017-06-25] MEDS: Pantoprazole 40 MG Tab.CR PO SCH (07:28)
[2017-06-25] MEDS: CLONIDINE 0.1 MG PO SCH (07:29)
[2017-06-25] MEDS: PTOM-Potassium Chloride 10 MEQ Tab.ER PO SCH (07:29)
[2017-06-25] MEDS: TORSEMIDE 20 MG PO SCH (07:32)
[2017-06-25] MEDS: METOPROLOL SUCC 50 MG PO SCH (07:33)
[2017-06-25] MEDS: LISINOPRIL 5 MG PO SCH (07:35)
[2017-06-25] MEDS: METFORMIN 500 MG PO SCH (07:35)
[2017-06-25] MEDS: PTOM-Gabapentin 300 MG Cap PO SCH (07:35)
[2017-06-25 07:41] VITALS: BP 126/70
--- NOTE | 2017-06-26 07:19 | DISCH ---
HOSPITAL COURSE: Ms. Analia Rodriguez is an 86-year-old female who came in with weakness. She had not been taking her medication. She was hypokalemic, she was admitted to the hospital, we went ahead and corrected her hypokalemia. Rest of labs, she has anemia of chronic disease. She had been worked up totally. Hemoglobin runs 9.6 to 9.4, otherwise CBC within normal. D-dimer elevated 1.5, it has been elevated many, many times, related to mild edema in her lower extremities. Urinalysis looked good. C-reactive protein is mildly elevated 1.6, I suspect related to her anemia of chronic disease. Creatinine was 1.61 down to 1.2. Blood sugars were stable. PHYSICAL EXAMINATION: NECK: Supple. CHEST: Clear. CARDIAC: Regular. Minimal edema. DISPOSITION: The patient now discharged home. We will see her back in clinic in a week for appropriate lab work. DISCHARGE MEDICATIONS: Home medications. DISCHARGE DIAGNOSIS: 1. WEAKNESS. 2. HYPOKALEMIA. 3. ANEMIA OF CHRONIC DISEASE. 4. HYPERTENSION. 5. DIABETES MELLITUS. GUILHERME/ELBA /[id number]
== END 2017-06-25 09:45 | disposition home or self-care (01) ==
LOC: CC.ED 19:35 → CC.MS 22:30 → UNDOADMOB 22:30 → CC.MS 23:04
PROVIDERS: ADMIT Physician Assistant Medical; ATTEND General Practice
DX: R53.1 Weakness (principal); E87.6 Hypokalemia; D63.8 Anemia in other chronic diseases classified elsewhere; I10 Essential (primary) hypertension; E11.9 Type 2 diabetes mellitus without complications; K21.9 Gastro-esophageal reflux disease without esophagitis; G47.30 Sleep apnea, unspecified; F41.9 Anxiety disorder, unspecified; Z88.8 Allergy status to other drugs, medicaments and biological substances; Z79.82 Long term (current) use of aspirin; Z79.899 Other long term (current) drug therapy; Z79.4 Long term (current) use of insulin; Z79.84 Long term (current) use of oral hypoglycemic drugs; Z90.49 Acquired absence of other specified parts of digestive tract; Z90.710 Acquired absence of both cervix and uterus; Z98.890 Other specified postprocedural states; Z91.14 Patient's other noncompliance with medication regimen
CPT/HCPCS: 36415; 80048; 80053; 81001; 82550; 82962; 83615; 83735; 83880; 84443; 84484; 85025; 85379; 85651; 86140; 93005; 96361; 96366; 96372; 99285; A9270; G0378; J1650; J1815; J3480; 93010; 96360; 99217; 99220; 99225

== ENCOUNTER 2017-07-02 09:22 | Inpatient (IN) | payer MEDICARE, BC ==
[2017-07-02] MEDS ORDERED: Acetaminophen/HYDROcodone 325-5 MG Tab PO PRN (10:14)
[2017-07-02] MEDS ORDERED: Acetaminophen 325 MG Tab PO PRN (10:14)
[2017-07-02] MEDS ORDERED: Ondansetron 4 MG/2 ML SDV IV PRN (10:14)
[2017-07-02] MEDS ORDERED: Docusate Sodium 100 MG Cap PO PRN (10:14)
[2017-07-02] MEDS: Insulin Aspart 100 Units/ML 3 ML Pen SUBCUT SCH ×3 (11:30→20:27)
[2017-07-02] MEDS ORDERED: predniSONE 20 MG Tab PO SCH (12:00)
[2017-07-02] MEDS ORDERED: Insulin Aspart 100 Units/ML 3 ML Pen SUBCUT SCH (12:00)
[2017-07-02] MEDS: Gabapentin 300 MG Cap PO SCH ×2 (13:47→20:25)
[2017-07-02] MEDS: metFORMIN 500 MG Tab PO SCH (17:20)
[2017-07-02] MEDS ORDERED: Amitriptyline 25 MG Tab PO SCH (20:00)
[2017-07-02] MEDS ORDERED: Enoxaparin 30 MG/0.3 ML Syringe SUBCUT SCH (20:00)
[2017-07-02] MEDS ORDERED: Insulin Detemir 100 Units/ML 3 ML Pen SUBCUT SCH (20:00)
[2017-07-02] MEDS ORDERED: Simvastatin 40 MG Tab PO SCH (20:00)
[2017-07-02] MEDS: cloNIDine 0.1 MG Tab PO SCH (20:25)
[2017-07-03] MEDS: metFORMIN 500 MG Tab PO SCH (07:54)
[2017-07-03] MEDS: cloNIDine 0.1 MG Tab PO SCH (07:55)
[2017-07-03] MEDS: Gabapentin 300 MG Cap PO SCH (07:55)
[2017-07-03] MEDS: Insulin Aspart 100 Units/ML 3 ML Pen SUBCUT SCH (07:56)
[2017-07-03 07:57] VITALS: BP 153/80
[2017-07-03] MEDS ORDERED: Metoprolol Succinate 25 MG Tab.ER PO SCH (08:00)
[2017-07-03] MEDS ORDERED: Potassium Chloride 10 MEQ Tab.ER PO SCH (08:00)
[2017-07-03] MEDS ORDERED: Aspirin 325 MG Tab.EC PO SCH (08:00)
[2017-07-03] MEDS ORDERED: Lisinopril 5 MG Tab PO SCH (08:00)
[2017-07-03] MEDS ORDERED: Torsemide 20 MG Tab PO SCH (08:00)
--- NOTE | 2017-07-04 07:39 | DISCH ---
HOSPITAL COURSE: This is an elderly white female, who came in after she had stumbled due to the back pain. She was admitted to the hospital. Diabetes was watched. Interestingly enough, she had kind of a chronic anemia and sedimentation rate greater than 140, so I believe she has polymyalgia rheumatica. She has had worked up for malignancies with IFEs, CAT scans, etc. Rest of lab here in the hospital, blood sugar stable. Potassium was a little bit low at 3.4, sedimentation rate 140. Urinalysis clear. DISPOSITION: The patient now discharged to [facility]. DISCHARGE MEDICATIONS: Home medications except I increased her potassium to 10 mEq b.i.d., added prednisone 20 mg daily for polymyalgia rheumatica. DISCHARGE DIAGNOSIS: 1. BACK PAIN WEAKNESS. 2. POLYMYALGIA RHEUMATICA. 3. DIABETES MELLITUS. 4. HYPERLIPIDEMIA. 5. HYPERTENSION. 6. PERNICIOUS ANEMIA ALSO. SADIA /[id number]
== END 2017-07-03 10:05 | DRG 547 ==
LOC: CC.MS 09:22
PROVIDERS: ADMIT General Practice; ATTEND General Practice
DX: M35.3 Polymyalgia rheumatica (principal); E11.9 Type 2 diabetes mellitus without complications; E78.5 Hyperlipidemia, unspecified; I10 Essential (primary) hypertension; D51.0 Vitamin B12 deficiency anemia due to intrinsic factor deficiency; Z79.82 Long term (current) use of aspirin; Z79.4 Long term (current) use of insulin; Z79.84 Long term (current) use of oral hypoglycemic drugs; Z79.899 Other long term (current) drug therapy
CPT/HCPCS: 82962; 84156; 86335; 94761; 97110-GP; A9270-GY; J1650; J1815-GY

== ENCOUNTER 2017-09-13 22:08 | Observation (INO) | payer MEDICARE, BC ==
[2017-09-13 23:12] LABS: CHLORIDE,CL 102 mEq/L (98-106); SODIUM,NA 140 mEq/L (136-145)
[2017-09-14] MEDS ORDERED: Sodium Chloride 0.9% 1,000 ML IV ONE (01:16)
[2017-09-14] MEDS ORDERED: Lidocaine 1% with EPINEPHrine 1:100,000 20 ML MDV INJECT ONE (01:35)
--- NOTE | 2017-09-14 02:04 | EDM.PDOC ---
ED HPI GENERAL MEDICAL PROBLEM - General Chief Complaint: Head Injury Stated Complaint: fall Time Seen by Provider: 09/13/17 22:08 Source of Information: Reports: Patient History Limitations: Reports: No Limitations - History of Present Illness INITIAL COMMENTS - FREE TEXT/NARRATIVE: This patient is an 86 year old female that presents to the ER. Patient reports that she was at home and was in a standing position when she passed out. patient reprots that she has frequent history of passing out. Patient reports she has had several workups for passing out. patient reports that when she passed out that she hit her head. Patient reports she noticed blood on the floor , then she called 911. Patient reports a mild headache. Patient denies n, v, vision changes, neck pain, neck stiffness, n, v, d, f, cough, cold congestion, drainage, cp, soa, abd pain, urinary/bowel changes. The patient is alert and oriented. Patient has a laceration to the right posterior pariatal scalp. Onset: Today Onset Date: 09/14/17 Onset Time: 19:00 Location: Reports: Head Quality: Reports: Throbbing Severity: Mild Improves with: Reports: None Worsens with: Reports: None Associated Symptoms: Reports: Headaches, Syncope, Weakness (generally). 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) Right Shoulder Pain Score (Numeric/FACES): 5 Head Pain Score (Numeric/FACES): 5 - Related Data Allergies Allergy/AdvReac Type Severity Reaction Status Date / Time meperidine [From Demerol] Allergy Cannot Verified 09/13/17 22:20 Remember nabumetone Allergy Cannot Verified 09/13/17 22:20 Remember oxycodone HCl [From Percocet] Allergy Hallucinati Verified 09/13/17 22:20 ons Home Meds: Home Meds Aspirin 325 mg PO DAILY 05/02/14 [History] Simvastatin 80 mg PO BEDTIME 05/02/14 [History] cloNIDine [Catapres] 0.1 mg PO BID 05/02/14 [History] Cholecalciferol (Vitamin D3) [Vitamin D3] 1,000 unit PO DAILY 02/13/16 [History] Amitriptyline HCl 75 mg PO BEDTIME 12/29/16 [History] Gabapentin [Neurontin] 300 mg PO TID 12/29/16 [History] Cyanocobalamin (Vitamin B-12) [Vitamin B-12] 1 ml IM Q30D 04/13/17 [History] Insulin Glarg,Human.Rec.Analog [Lantus] 16 units SUBCUT BEDTIME #0 04/16/17 [Rx] Lisinopril 5 mg PO DAILY #0 04/16/17 [Rx] Metoprolol Succinate 50 mg PO DAILY #30 tab.er.24h 04/16/17 [Rx] Hydrocodone/Acetaminophen [Hydrocodon-Acetaminophen 5-325] 1 - 2 tab PO Q4HR PRN 06/29/17 [History] Torsemide [Demadex] 20 mg PO DAILY 06/29/17 [History] metFORMIN [Glucophage] 500 mg PO BID 06/29/17 [History] Potassium Chloride 10 meq PO BID #0 07/03/17 [Rx] Prednisone [IJD: predniSONE] 20 mg PO DAILY@1200 #30 tablet 07/03/17 [Rx] Past Medical History HEENT History: Reports: Allergic Rhinitis Cardiovascular History: Reports: High Cholesterol, Hypertension Other Cardiovascular History: asymptomatic left cardiac stenosis Respiratory History: Reports: Sleep Apnea Gastrointestinal History: Reports: GERD Genitourinary History: Reports: None, UTI, Recurrent Other Genitourinary History: nocturia PHARMACEUTICAL ENGINEER History: Reports: None, Musculoskeletal History: Reports: Arthritis, Back Pain, Chronic, Fracture, Osteoporosis, RA, Other (See Below) Other Musculoskeletal History: Muscle spasms, arthralgia Neurological History: Reports: TIA, Other (See Below) Other Neuro History: daughter states pt has had a few ministrokes Psychiatric History: Reports: Anxiety, Other (See Below) Other Psychiatric History: Insomnia Endocrine/Metabolic History: Reports: Diabetes, Type II Hematologic History: Reports: None Immunologic History: Reports: None Oncologic (Cancer) History: Reports: Breast Dermatologic History: Reports: Other (See Below) Other Dermatologic History: Actinic keratosis - Past Surgical History HEENT Surgical History: Reports: Cataract Surgery GI Surgical History: Reports: Appendectomy, Cholecystectomy, Hernia, Inguinal Female Surgical History: Reports: Hysterectomy, Oophorectomy, Other (See Below) Neurological Surgical History: Reports: None Musculoskeletal Surgical History: Reports: Other (See Below) Social & Family History - Family History Family Medical History: Noncontributory - Tobacco Use Smoking Status *Q: Never Smoker Second Hand Smoke Exposure: No - Caffeine Use Caffeine Use: Reports: Coffee - Recreational Drug Use Recreational Drug Use: No - Living Situation & Occupation Living situation: Reports: , Alone ED ROS GENERAL - Review of Systems Review Of Systems: See Below Constitutional: Reports: No Symptoms HEENT: Reports: No Symptoms Respiratory: Reports: No Symptoms Cardiovascular: Reports: Lightheadedness, Syncope. Denies: Chest Pain Endocrine: Reports: No Symptoms GI/Abdominal: Reports: No Symptoms : Reports: No Symptoms Musculoskeletal: Reports: No Symptoms Skin: Reports: Wound (laceration scalp) Neurological: Reports: Headache, Syncope. Denies: Tremors, Trouble Speaking, Change in Speech Psychiatric: Reports: No Symptoms Hematologic/Lymphatic: Reports: No Symptoms Immunologic: Reports: No Symptoms ED EXAM, HEAD INJURY - Physical Exam Exam: See Below Exam Limited By: No Limitations General Appearance: Alert, WD/WN, No Apparent Distress Head: Scalp Abrasions, Other (scalp laceration right posterior pariatal.) Nexus Criteria: No: Posterior, Midline Cervical Tenderness, Evidence of Intoxication, Altered Level of Consciousness, Focal Neurological Deficit, Painful Distraction Injuries Eyes: Bilateral Eye: EOMI, Normal Inspection, PERRL Ears: Normal External Exam, Normal Canal, Hearing Grossly Normal, Normal TMs Nose: Normal Inspection, Normal Mucousa, No Blood Throat/Mouth: Normal Inspection, Normal Lips, Normal Teeth, Normal Gums, Normal Oropharynx, Normal Voice, No Airway Compromise Neck: Non-Tender, Full Range of Motion, Normal Alignment, Normal Inspection Respiratory: No Respiratory Distress, Lungs Clear, Normal Breath Sounds, No Accessory Muscle Use Cardiovascular: Normal Peripheral Pulses, No Edema, No Gallop, No JVD, No Murmur , No Rub, Tachycardia (102 on exam) GI/Abdominal Exam: Normal Bowel Sounds, Soft, Non-Tender, No Organomegaly, No Distention, No Abnormal Bruit, No Mass, Pelvis Stable Back Exam: Normal Inspection, Full Range of Motion. No: CVA Tenderness (L), CVA Tenderness (R), Decreased Range of Motion, Muscle Spasm, Paraspinal Tenderness, Vertebral Tenderness Extremities: Normal Inspection, Normal Range of Motion, No Pedal Edema, Normal Capillary Refill, Other (Right shoulder pain, tenderness. Full ROM. Pulses +2, cap refill <2 sec, sensory/motor function intact. neurovascular intact. ) Neurologic: No Motor/Sensory Deficits, Alert, Normal Mood/Affect, Oriented x 3 Skin: Normal Color, Warm/Dry - Michelle Coma Score Best Eye Response ([place]): (4) Open Spontaneously Best Verbal Response (Michelle): (5) Oriented Best Motor Response (Michelle): (6) Obeys Commands ED LACERATION/WOUND & FRANKIE PROC - Laceration/Wound Repair Right Midline Head Lac/wound length in cm: 4 Appearance: Superficial Distal NVT: Neuro & Vascular Intact, No Tendon Injury Anesthetic Type: Local Local Anesthesia - Lidocaine (Xylocaine): 1% with EPI Local Anesthetic Volume: 3cc Skin Prep: Chlorhexidine (Hibiciens) Saline irrigation (cc's): 20 Exploration/Debridement/Repair: Wound Explored, In a Bloodless Field, Explored to Base, No Foreign Material Found Closed with: Aly # of Sutures: 6 Tetanus Status Addressed: Yes Complications: No EKG INTERPRETATION EKG Date: 09/13/17 Time: 22:45 Rhythm: Other (tachycardia) Rate (Beats/Min): 102 Comparison: NA - No Prior EKG Course - Vital Signs Last Recorded V/S: Last Vital Signs Temp 97.4 F 09/14/17 00:15 Pulse 77 09/14/17 00:15 Resp 20 09/14/17 00:15 BP 136/90 09/14/17 00:15 Pulse Ox 96 09/14/17 00:15 - Orders/Labs/Meds Orders: Active Orders 24 hr Category Date Time Status EKG Documentation Completion [RC] STAT Care 09/13/17 22:21 Active Cervical Spine wo Cont [CT] Stat Exams 09/13/17 22:22 Taken Chest 1V Frontal [CR] Stat Exams 09/13/17 22:22 Taken Head wo Cont [CT] Stat Exams 09/13/17 22:22 Taken Shoulder Comp Rt [CR] Stat Exams 09/13/17 22:22 Taken Sodium Chloride 0.9% [Normal Saline] 1,000 ml Med 09/14/17 01:16 Active IV .BOLUS Medication Orders Sodium Chloride (Normal Saline) 1,000 mls @ 500 mls/hr IV .BOLUS ONE Stop: 09/14/17 03:15 Last Admin: 09/14/17 01:57 Dose: 500 mls/hr Labs: Laboratory Tests 09/13/17 09/13/17 09/14/17 Range/Units 22:52 22:52 01:15 WBC 11.8 H (5.0-10.0) 10^3/uL RBC 3.85 L (4.00-5.50) 10^6/uL Hgb 10.5 L (12.0-16.0) g/dL Hct 34.6 L (37.0-47.0) % MCV 89.9 (82.0-94.0) fL MCH 27.3 (27.0-32.0) pg MCHC 30.3 L (33.0-38.0) g/dL RDW Coeff of Roxanna 14.9 (11.0-15.0) % Plt Count 408 H (150-400) 10^3/uL Neut % (Auto) 85.8 H (35-85) % Lymph % (Auto) 8.0 L (10-55) % [place] % (Auto) 5.6 (0-16) % Eos % (Auto) 0.3 (0-5) % Baso % (Auto) 0.3 (0-3) % Neut # (Auto) 10.15 H (1.80-7.00) 10^3/uL Lymph # (Auto) 0.94 L (1.00-4.80) 10^3/uL [place] # (Auto) 0.66 (0.00-0.80) 10^3/uL Eos # (Auto) 0.03 (0.00-0.45) 10^3/uL Baso # (Auto) 0.03 10^3/uL Sodium 140 (136-145) mEq/L Potassium 4.1 (3.5-5.0) mEq/L Chloride 102 (98-106) mEq/L Carbon Dioxide 30 (21-32) mmol/L BUN 26 H (7-18) mg/dL Creatinine 1.9 H (0.6-1.0) mg/dL Est Cr Clr Drug Dosing 16.63 mL/min Estimated GFR (MDRD) 25 L (>=60) mL/min Glucose 113 H D (75-99) mg/dL Calcium 9.2 (8.4-10.1) mg/dL Total Bilirubin 0.3 (0.0-1.0) mg/dL AST 17 (15-37) U/L ALT 34 (12-78) U/L Alkaline Phosphatase 95 (46-116) U/L Troponin I < 0.017 (0.00-0.06) ng/mL Total Protein 7.5 (6.4-8.2) g/dL Albumin 3.3 L (3.4-5.0) g/dL Urine Color Yellow (YELLOW) Urine Appearance Clear (CLEAR) Urine pH 5.5 (4.5-8.0) Ur Specific [place] 1.015 (1.003-1.020) Urine Protein Negative (NEGATIVE) mg/dL Urine Glucose (UA) Negative (NEGATIVE) mg/dL Urine Ketones Negative (NEGATIVE) mg/dL Urine Occult Blood Negative (NEGATIVE) Urine Nitrite Negative (NEGATIVE) Urine Bilirubin Negative (NEGATIVE) Urine Urobilinogen 0.2 (0.2-1.0) EU/dL Ur Leukocyte Esterase Negative (NEGATIVE) Urine RBC Not seen (0-5) /HPF Urine WBC Not seen (0-5) /HPF Ur Squamous Epith Cells Few H (NOT SEEN) /HPF Urine Bacteria Occasional H (NOT SEEN) /HPF Meds: Medications Generic Name Dose Route Start Last Admin Trade Name Freq PRN Reason Stop Dose Admin Sodium Chloride 1,000 mls @ 500 mls/hr 09/14/17 01:16 09/14/17 01:57 Normal Saline IV 09/14/17 03:15 500 mls/hr .BOLUS ONE Administration Discontinued Medications Generic Name Dose Route Start Last Admin Trade Name Freq PRN Reason Stop Dose Admin Lidocaine/Epinephrine 20 ml 09/14/17 01:35 09/14/17 01:58 Xylocaine 1% With Epinephrine 1:100,000 INJECT 09/14/17 01:36 20 ml ONETIME ONE Administration - Radiology Interpretation Free Text/Narrative:: Head CT: No bleed, no fx. There is laceration scalp. Discussed with radiologist. CT Results Date: 09/14/17 CT Results Time: 01:00 Departure - Departure Time of Disposition: 02:11 Disposition: Refer to Observation Condition: Fair Clinical Impression: Renal insufficiency, Generalized weakness Syncope Qualifiers: Syncope type: unspecified Qualified Code(s): R55 - Syncope and collapse Laceration of scalp Qualifiers: Encounter type: initial encounter Qualified Code(s): S01.01XA - Laceration without foreign body of scalp, initial encounter - Discharge Information Referrals: Jeremy Linares MD [Primary Care Provider] - Forms: ED Department Discharge - My Orders Last 24 Hours: My Active Orders 09/13/17 22:21 EKG Documentation Completion [RC] STAT 09/13/17 22:22 Cervical Spine wo Cont [CT] Stat Chest 1V Frontal [CR] Stat Head wo Cont [CT] Stat Shoulder Comp Rt [CR] Stat 09/14/17 01:16 Sodium Chloride 0.9% [Normal Saline] 1,000 ml IV .BOLUS - Assessment/Plan Last 24 Hours: My Active Orders 09/13/17 22:21 EKG Documentation Completion [RC] STAT 09/13/17 22:22 Cervical Spine wo Cont [CT] Stat Chest 1V Frontal [CR] Stat Head wo Cont [CT] Stat Shoulder Comp Rt [CR] Stat 09/14/17 01:16 Sodium Chloride 0.9% [Normal Saline] 1,000 ml IV .BOLUS Plan: PLEASE SEE RN NOTE FOR PFSH. PLEASE USE ER H&P ADMIT H&P.
[2017-09-14] MEDS ORDERED: Docusate Sodium 100 MG Cap PO PRN (05:00)
[2017-09-14] MEDS ORDERED: Ondansetron 4 MG/2 ML SDV IV PRN (05:00)
[2017-09-14] MEDS ORDERED: Acetaminophen 325 MG Tab PO PRN (05:00)
[2017-09-14] MEDS ORDERED: Cyanocobalamin (Vitamin B12) 1,000 MCG/ML SDV IM SCH (05:15)
[2017-09-14] MEDS: Acetaminophen/HYDROcodone 325-5 MG Tab PO PRN ×2 (05:39→11:01)
[2017-09-14] MEDS: Sodium Chloride 0.9% 1,000 ML IV SCH ×2 (07:00→17:02)
[2017-09-14] MEDS ORDERED: Non-Formulary Medication 1 Each (Metformin [Glucophage] 500 MG) PO SCH (08:00)
[2017-09-14] MEDS: Aspirin 325 MG Tab.EC PO SCH (09:26)
[2017-09-14] MEDS: Torsemide 20 MG Tab PO SCH (09:26)
[2017-09-14] MEDS: cloNIDine 0.1 MG Tab PO SCH ×2 (09:26→22:27)
[2017-09-14] MEDS: Potassium Chloride 10 MEQ Tab.ER PO SCH ×2 (09:27→19:17)
[2017-09-14] MEDS: Metoprolol Succinate 25 MG Tab.ER PO SCH (09:27)
[2017-09-14] MEDS: Gabapentin 300 MG Cap PO SCH ×3 (09:27→22:27)
[2017-09-14] MEDS: Cholecalciferol (Vitamin D3) 1,000 Unit Tab PO SCH (09:27)
[2017-09-14] MEDS: Lisinopril 5 MG Tab PO SCH (09:27)
[2017-09-14] MEDS: predniSONE 20 MG Tab PO SCH (13:05)
--- NOTE | 2017-09-14 13:34 | PCM.PN ---
- General Info Date of Service: 09/14/17 Functional Status: Reports: Pain Controlled, Tolerating Diet - Review of Systems General: Reports: No Symptoms HEENT: Reports: No Symptoms Pulmonary: Reports: No Symptoms Cardiovascular: Reports: No Symptoms Gastrointestinal: Reports: No Symptoms Genitourinary: Reports: No Symptoms Musculoskeletal: Reports: No Symptoms Skin: Reports: No Symptoms Neurological: Reports: No Symptoms Psychiatric: Reports: No Symptoms - Patient Data Vitals - Most Recent: Last Vital Signs Temp 98.3 F 09/14/17 11:45 Pulse 98 09/14/17 11:45 Resp 20 09/14/17 11:45 BP 122/74 09/14/17 11:45 Pulse Ox 97 09/14/17 11:45 Weight - Most Recent: 177 lb 1.6 oz Lab Results Last 24 Hours: Laboratory Results - last 24 hr 09/14/17 09/14/17 09/14/17 Range/Units 07:35 07:35 08:19 WBC 10.1 H (5.0-10.0) 10^3/uL RBC 3.48 L (4.00-5.50) 10^6/uL Hgb 9.4 L (12.0-16.0) g/dL Hct 31.5 L (37.0-47.0) % MCV 90.5 (82.0-94.0) fL MCH 27.0 (27.0-32.0) pg MCHC 29.8 L (33.0-38.0) g/dL RDW Coeff of Roxanna 15.0 (11.0-15.0) % Plt Count 332 (150-400) 10^3/uL Neut % (Auto) 73.3 (35-85) % Lymph % (Auto) 17.8 (10-55) % [place] % (Auto) 7.7 (0-16) % Eos % (Auto) 1.0 (0-5) % Baso % (Auto) 0.2 (0-3) % Neut # (Auto) 7.40 H (1.80-7.00) 10^3/uL Lymph # (Auto) 1.80 (1.00-4.80) 10^3/uL [place] # (Auto) 0.78 (0.00-0.80) 10^3/uL Eos # (Auto) 0.10 (0.00-0.45) 10^3/uL Baso # (Auto) 0.02 10^3/uL Sodium 140 (136-145) mEq/L Potassium 3.6 (3.5-5.0) mEq/L Chloride 104 (98-106) mEq/L Carbon Dioxide 31 (21-32) mmol/L BUN 27 H (7-18) mg/dL Creatinine 1.5 H (0.6-1.0) mg/dL Est Cr Clr Drug Dosing 21.07 mL/min Estimated GFR (MDRD) 33 L (>=60) mL/min Glucose 107 H (75-99) mg/dL POC Glucose 100 (75-105) mg/dl Calcium 8.7 (8.4-10.1) mg/dL Med Orders - Current: Current Medications Acetaminophen (Tylenol) 650 mg PO Q4H PRN PRN Reason: Pain (Mild 1-3)/fever Hydrocodone Bitart/Acetaminophen ([place] 325-5 Mg) 1 tab PO Q4H PRN PRN Reason: PAIN Last Admin: 09/14/17 11:01 Dose: 1 tab Amitriptyline HCl (Elavil) 75 mg PO BEDTIME [facility] Aspirin (Ecotrin) 325 mg PO DAILY [facility] Last Admin: 09/14/17 09:26 Dose: Not Given Cholecalciferol (Vitamin D3) 1,000 units PO DAILY [facility] Last Admin: 09/14/17 09:27 Dose: Not Given Clonidine HCl (Catapres) 0.1 mg PO BID [facility] Last Admin: 09/14/17 09:26 Dose: Not Given Cyanocobalamin (Vitamin B12) 1,000 mcg IM Q30D [facility] Last Admin: 09/14/17 05:32 Dose: Not Given Docusate Sodium (Colace) 100 mg PO BID PRN PRN Reason: Constipation Gabapentin (Neurontin) 300 mg PO TID [facility] Last Admin: 09/14/17 09:27 Dose: Not Given Sodium Chloride (Normal Saline) 1,000 mls @ 100 mls/hr IV ASDIRECTED [facility] Stop: 09/15/17 07:00 Last Admin: 09/14/17 07:00 Dose: 100 mls/hr Insulin Detemir (Levemir) 0 unit SUBCUT BEDTIME [facility] Lisinopril (Prinivil) 5 mg PO DAILY [facility] Last Admin: 09/14/17 09:27 Dose: Not Given Metoprolol Succinate (Toprol Xl) 50 mg PO DAILY [facility] Last Admin: 09/14/17 09:27 Dose: Not Given Non-Formulary Medication (Metformin [Glucophage]) 500 mg PO BID [facility] Ondansetron HCl (Zofran) 4 mg IV Q6H PRN PRN Reason: Nausea/Vomiting Potassium Chloride (Klor-Con 10) 10 meq PO BIDMEALS [facility] Last Admin: 09/14/17 09:27 Dose: Not Given Prednisone (Prednisone) 20 mg PO 1200 [facility] Last Admin: 09/14/17 13:05 Dose: Not Given Simvastatin (Zocor) 80 mg PO BEDTIME [facility] Torsemide (Demadex) 20 mg PO DAILY [facility] Last Admin: 09/14/17 09:26 Dose: Not Given Discontinued Medications Sodium Chloride (Normal Saline) 1,000 mls @ 500 mls/hr IV .BOLUS ONE Stop: 09/14/17 03:15 Last Admin: 09/14/17 01:57 Dose: 500 mls/hr Lidocaine/Epinephrine (Xylocaine 1% With Epinephrine 1:100,000) 20 ml INJECT ONETIME ONE Stop: 09/14/17 01:36 Last Admin: 09/14/17 01:58 Dose: 20 ml - Exam General: Alert, Oriented, Cooperative, No Acute Distress Neck: Supple Lungs: Clear to Auscultation, Normal Respiratory Effort Cardiovascular: Regular Rate, Regular Rhythm GI/Abdominal Exam: Normal Bowel Sounds, Soft, Non-Tender, No Organomegaly, No Distention, No Abnormal Bruit, No Mass, Pelvis Stable Back Exam: Normal Inspection, Full Range of Motion Extremities: Normal Inspection, Normal Range of Motion, Non-Tender, No Pedal Edema, Normal Capillary Refill Peripheral Pulses: 2+: Radial (L), Radial (R), Posterior Tibial (L), Posterior Tibial (R), Dorsalis Pedis (L), Dorsalis Pedis (R) Skin: Warm, Dry, Intact Neurological: No New Focal Deficit Psy/Mental Status: Alert, Normal Affect, Normal Mood - Problem List Review Problem List Initiated/Reviewed/Updated: Yes - My Orders Last 24 Hours: My Active Orders 09/14/17 04:10 Resuscitation Status Routine 09/14/17 05:00 Patient Status [ADT] Routine Antiembolic Devices [RC] 1000,2200 Notify Provider Vital Signs [RC] .PRN Oxygen Therapy [RC] .PRN Up With Assistance [RC] .PRN Up to Chair [RC] .PRN Vital Signs [RC] 0800,1200,1600,2000,0000,0400 Acetaminophen [Tylenol] 650 mg PO Q4H PRN Docusate Sodium [Colace] 100 mg PO BID PRN Ondansetron [Zofran] 4 mg IV Q6H PRN Sodium Chloride 0.9% [Normal Saline] 1,000 ml IV ASDIRECTED Anticoagulation Contraindications VTE [AST] Per Unit Routine Antiembolic Hose [OM.PC] Per Unit Routine 09/14/17 05:14 Acetaminophen/HYDROcodone [[place] 325-5 MG] 1 tab PO Q4H PRN 09/14/17 05:15 Cyanocobalamin (Vitamin B12) [Vitamin B12] 1,000 mcg IM Q30D 09/14/17 08:00 Aspirin [Ecotrin] 325 mg PO DAILY Cholecalciferol (Vitamin D3) [Vitamin D3] 1,000 units PO DAILY Gabapentin [Neurontin] 300 mg PO TID Lisinopril [Prinivil] 5 mg PO DAILY Metoprolol Succinate [Toprol XL] 50 mg PO DAILY Potassium Chloride [Klor-Con 10] 10 meq PO BIDMEALS Torsemide [Demadex] 20 mg PO DAILY cloNIDine [Catapres] 0.1 mg PO BID metFORMIN [Glucophage] 500 mg PO BID 09/14/17 12:00 predniSONE 20 mg PO 1200 09/14/17 20:00 Amitriptyline [Elavil] 75 mg PO BEDTIME Insulin Detemir [Levemir] 0 unit SUBCUT BEDTIME Simvastatin [Zocor] 80 mg PO BEDTIME 09/14/17 Breakfast Consistent Carbohydrate Diet [DIET] 09/15/17 05:00 BASIC METABOLIC PANEL,BMP [CHEM] DAILY CBC WITH AUTO DIFF [HEME] DAILY - Plan Plan:: This patient was admitted by me early this morning for renal insufficiency, syncope, and generalized weakness. The patient this morning says she is feeling much better. She reports that she does have some more strength. She reports she is not feeling 100%, but improved. The patient labs were reviewed, her CR yesterday was 1.9, today it is 1.5. She still has a little worse than her typical renal insufficiency, I will keep her one more night and repeat labs in the morning. If she is still feeling well and labs improve again tomorrow, will plan to discharge her then. Patient today denies bone, dizziness, n, v, vision changes, syncope, cp, soa, abd pain, urinary/bowel changes. Stable.
[2017-09-14] MEDS ORDERED: Amitriptyline 25 MG Tab PO SCH (20:00)
[2017-09-14] MEDS ORDERED: Simvastatin 40 MG Tab PO SCH (20:00)
[2017-09-14] MEDS ORDERED: Insulin Detemir 100 Units/ML 3 ML Pen SUBCUT SCH (20:00)
[2017-09-15] MEDS: Sodium Chloride 0.9% 1,000 ML IV SCH (04:33)
[2017-09-15] MEDS: Acetaminophen/HYDROcodone 325-5 MG Tab PO PRN (05:38)
[2017-09-15 07:32] VITALS: BP 147/80
[2017-09-15] MEDS: Torsemide 20 MG Tab PO SCH (07:37)
[2017-09-15] MEDS: cloNIDine 0.1 MG Tab PO SCH (07:37)
[2017-09-15] MEDS: Lisinopril 5 MG Tab PO SCH (07:37)
[2017-09-15] MEDS: Gabapentin 300 MG Cap PO SCH (07:37)
[2017-09-15] MEDS: Aspirin 325 MG Tab.EC PO SCH (07:37)
[2017-09-15] MEDS: Potassium Chloride 10 MEQ Tab.ER PO SCH (07:37)
[2017-09-15] MEDS: Cholecalciferol (Vitamin D3) 1,000 Unit Tab PO SCH (07:38)
[2017-09-15] MEDS: Metoprolol Succinate 25 MG Tab.ER PO SCH (07:38)
[2017-09-15] MEDS: predniSONE 20 MG Tab PO SCH (11:26)
--- NOTE | 2017-09-15 11:56 | PCM.DCSUM1 ---
Discharge Summary - Hospital Course HPI Initial Comments: This patient is an 86 year old female was seen in the ER for syncope. She had renal insufficiency and was admitted. Patient today reports that she feels much better. She denies bone, dizziness, n, v, d, f, cp, soa, abd pain, urinary/bowel changes. Patient is alert and oriented. She reports she is ready to go home today. Labs on 09/13 were CR 1.9, BUN 26. On 09/14 CR 1.5, BUN 27, Today they are CR 1.2, and BUN 21. Labs are now consistent with baseline. I will discharge patient. - Discharge Data Discharge Date: 09/15/17 Discharge Disposition: Home, Self-Care 01 Condition: Good - Patient Instructions Diet: Usual Diet as Tolerated Activity: As Tolerated Showering/Bathing: May Shower Wound/Incision Care: Keep Operative Site/Wound Site Clean and Dry Notify Provider of: Fever, Increased Pain, Swelling and Redness, Drainage, Nausea and/or Vomiting - Discharge Plan Home Medications: Home Meds Aspirin 325 mg PO DAILY 05/02/14 [History] Simvastatin 80 mg PO BEDTIME 05/02/14 [History] cloNIDine [Catapres] 0.1 mg PO BID 05/02/14 [History] Cholecalciferol (Vitamin D3) [Vitamin D3] 1,000 unit PO DAILY 12/24/15 [History] Amitriptyline HCl 75 mg PO BEDTIME 12/29/16 [History] Gabapentin [Neurontin] 300 mg PO TID 12/29/16 [History] Cyanocobalamin (Vitamin B-12) [Vitamin B-12] 1 ml IM Q30D 04/13/17 [History] Insulin Glarg,Human.Rec.Analog [Lantus] 16 units SUBCUT BEDTIME #0 04/16/17 [Rx] Lisinopril 5 mg PO DAILY #0 04/16/17 [Rx] Metoprolol Succinate 50 mg PO DAILY #30 tab.er.24h 04/16/17 [Rx] Hydrocodone/Acetaminophen [Hydrocodon-Acetaminophen 5-325] 1 - 2 tab PO Q4HR PRN 06/29/17 [History] Torsemide [Demadex] 20 mg PO DAILY 06/29/17 [History] metFORMIN [Glucophage] 500 mg PO BID 06/29/17 [History] Potassium Chloride 10 meq PO BID #0 07/03/17 [Rx] Prednisone [IJD: predniSONE] 20 mg PO DAILY@1200 #30 tablet 07/03/17 [Rx] Patient Handouts: Dehydration, Adult, [id number] Forms: ED Department Discharge Referrals: Jeremy Linares MD [Primary Care Provider] - - Discharge Summary/Plan Comment DC Time >30 min.: No - Patient Data Vitals - Most Recent: Last Vital Signs Temp 97.1 F 09/15/17 07:32 Pulse 86 09/15/17 07:32 Resp 16 09/15/17 07:32 BP 147/80 H 09/15/17 07:37 Pulse Ox 97 09/15/17 07:32 Weight - Most Recent: 177 lb 1.6 oz I&O - Last 24 hours: Intake & Output 09/14/17 09/15/17 09/15/17 23:59 06:59 14:59 Intake Total Balance Lab Results - Last 24 hrs: Laboratory Results - last 24 hr 09/14/17 09/15/17 09/15/17 Range/Units 13:14 07:30 07:30 WBC 9.5 (5.0-10.0) 10^3/uL RBC 3.10 L (4.00-5.50) 10^6/uL Hgb 8.3 L (12.0-16.0) g/dL Hct 28.2 L (37.0-47.0) % MCV 91.0 (82.0-94.0) fL MCH 26.8 L (27.0-32.0) pg MCHC 29.4 L (33.0-38.0) g/dL RDW Coeff of Roxanna 14.7 (11.0-15.0) % Plt Count 303 (150-400) 10^3/uL Neut % (Auto) 69.6 (35-85) % Lymph % (Auto) 21.6 (10-55) % [place] % (Auto) 7.2 (0-16) % Eos % (Auto) 1.4 (0-5) % Baso % (Auto) 0.2 (0-3) % Neut # (Auto) 6.62 (1.80-7.00) 10^3/uL Lymph # (Auto) 2.06 (1.00-4.80) 10^3/uL [place] # (Auto) 0.69 (0.00-0.80) 10^3/uL Eos # (Auto) 0.13 (0.00-0.45) 10^3/uL Baso # (Auto) 0.02 10^3/uL Sodium 139 (136-145) mEq/L Potassium 3.4 L (3.5-5.0) mEq/L Chloride 104 (98-106) mEq/L Carbon Dioxide 28 (21-32) mmol/L BUN 21 H (7-18) mg/dL Creatinine 1.2 H (0.6-1.0) mg/dL Est Cr Clr Drug Dosing 26.33 mL/min Estimated GFR (MDRD) 43 L (>=60) mL/min Glucose 115 H (75-99) mg/dL POC Glucose 174 H (75-105) mg/dl Calcium 8.4 (8.4-10.1) mg/dL Med Orders - Current: Current Medications Acetaminophen (Tylenol) 650 mg PO Q4H PRN PRN Reason: Pain (Mild 1-3)/fever Hydrocodone Bitart/Acetaminophen ([place] 325-5 Mg) 1 tab PO Q4H PRN PRN Reason: PAIN Last Admin: 09/15/17 05:38 Dose: 1 tab Amitriptyline HCl (Elavil) 75 mg PO BEDTIME [facility] Last Admin: 09/14/17 22:27 Dose: Not Given Aspirin (Ecotrin) 325 mg PO DAILY [facility] Last Admin: 09/15/17 07:37 Dose: Not Given Cholecalciferol (Vitamin D3) 1,000 units PO DAILY [facility] Last Admin: 09/15/17 07:38 Dose: Not Given Clonidine HCl (Catapres) 0.1 mg PO BID [facility] Last Admin: 09/15/17 07:37 Dose: Not Given Cyanocobalamin (Vitamin B12) 1,000 mcg IM Q30D [facility] Last Admin: 09/14/17 05:32 Dose: Not Given Docusate Sodium (Colace) 100 mg PO BID PRN PRN Reason: Constipation Gabapentin (Neurontin) 300 mg PO TID [facility] Last Admin: 09/15/17 07:37 Dose: Not Given Insulin Detemir (Levemir) 0 unit SUBCUT BEDTIME [facility] Last Admin: 09/14/17 21:45 Dose: 16 units Lisinopril (Prinivil) 5 mg PO DAILY [facility] Last Admin: 09/15/17 07:37 Dose: Not Given Metoprolol Succinate (Toprol Xl) 50 mg PO DAILY [facility] Last Admin: 09/15/17 07:38 Dose: Not Given Non-Formulary Medication (Metformin [Glucophage]) 500 mg PO BID [facility] Ondansetron HCl (Zofran) 4 mg IV Q6H PRN PRN Reason: Nausea/Vomiting Potassium Chloride (Klor-Con 10) 10 meq PO BIDMEALS [facility] Last Admin: 09/15/17 07:37 Dose: Not Given Prednisone (Prednisone) 20 mg PO 1200 [facility] Last Admin: 09/15/17 11:26 Dose: Not Given Simvastatin (Zocor) 80 mg PO BEDTIME [facility] Last Admin: 09/14/17 22:27 Dose: Not Given Torsemide (Demadex) 20 mg PO DAILY [facility] Last Admin: 09/15/17 07:37 Dose: Not Given Discontinued Medications Sodium Chloride (Normal Saline) 1,000 mls @ 500 mls/hr IV .BOLUS ONE Stop: 09/14/17 03:15 Last Admin: 09/14/17 01:57 Dose: 500 mls/hr Sodium Chloride (Normal Saline) 1,000 mls @ 100 mls/hr IV ASDIRECTED [facility] Stop: 09/15/17 07:00 Last Admin: 09/15/17 04:33 Dose: 100 mls/hr Lidocaine/Epinephrine (Xylocaine 1% With Epinephrine 1:100,000) 20 ml INJECT ONETIME ONE Stop: 09/14/17 01:36 Last Admin: 09/14/17 01:58 Dose: 20 ml *Q Meaningful Use (DIS) - VTE *Q VTE Criteria *Q: VTE Anticoagulation Contraindications: Medical/Procedure Contrai - Stroke *Q Stroke Criteria *Q: - AMI *Q AMI Criteria *Q:
== END 2017-09-15 13:00 | disposition home or self-care (01) ==
LOC: CC.ED 22:08 → SUPCPDRO 22:08 → CC.MS 09-14 03:45 → UNDOADMOB 09-14 03:45 → CC.MS 09-14 05:00 → UNDODISOB 09-15 13:00
PROVIDERS: ADMIT Nurse Practitioner; ATTEND Nurse Practitioner
DX: R55 Syncope and collapse (principal); S01.01XA Laceration without foreign body of scalp, initial encounter; R53.1 Weakness; E78.00 Pure hypercholesterolemia, unspecified; I10 Essential (primary) hypertension; K21.9 Gastro-esophageal reflux disease without esophagitis; Z87.440 Personal history of urinary (tract) infections; M19.90 Unspecified osteoarthritis, unspecified site; M81.0 Age-related osteoporosis without current pathological fracture; F41.9 Anxiety disorder, unspecified; E11.9 Type 2 diabetes mellitus without complications; N28.9 Disorder of kidney and ureter, unspecified; Z86.73 Personal history of transient ischemic attack (TIA), and cerebral infarction without residual deficits; Z79.4 Long term (current) use of insulin; Z79.82 Long term (current) use of aspirin; Z79.899 Other long term (current) drug therapy; Z88.5 Allergy status to narcotic agent; Z88.8 Allergy status to other drugs, medicaments and biological substances; Z90.49 Acquired absence of other specified parts of digestive tract; Z90.710 Acquired absence of both cervix and uterus; Z98.890 Other specified postprocedural states
CPT/HCPCS: 12002; 36415; 70450; 71010; 72125; 73030; 80048; 80053; 81001; 82962; 84484; 85025; 93005; 93010; 96360; 96361; 99217; 99220; 99285; A9270; G0378; J1815; J7030

== ENCOUNTER 2018-01-03 17:21 | Emergency (ER) | payer MEDICARE, BC ==
[2018-01-03 17:26] VITALS: BP 159/104
--- NOTE | 2018-01-03 18:22 | EDM.PDOC ---
ED HPI GENERAL MEDICAL PROBLEM - General Chief Complaint: General Stated Complaint: elevated blood pressure Time Seen by Provider: 01/03/18 17:45 Source of Information: Reports: Patient, Family History Limitations: Reports: No Limitations - History of Present Illness INITIAL COMMENTS - FREE TEXT/NARRATIVE: This patient is a pleasant 87 year old female that presents to the ER. Patient reports that on Saturday she started having a frontal headache and feeling a little dizzy. She reports that since then she has not felt that well generally. Patient reports that her headache on Saturday was bad, then on Saturday it was bad as well. She reports that on Saturday she took a pain pill and the pain had nearly resolved. She reports she has had a headache since Saturday, but it has improving each day. Patent reports that on Saturday she started having double vision from both eyes. 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 The patient reports her headache now a 3/10 pain level. Patient denies n, v, d, f, congestion, drainage, neck pain, neck stiffness, cp, soa, abd pain, urinary/bowel changes, rashes, extremety pain, extremity weakness , unilateral weakness, eye floaters, blurry vision. Patient today went and saw her vessel specialist. Patient had her eyes dilated. The patient reports that the vessel specialist sent her to the ER to be checked out to rule out Isolated 4th nerve palsy, temporal arteritis, stroke. The patient reports that after the vessel specialist put a eye patch to the right eye, her diplopia has resolved. The patient does have history of HTN and diabetes that is currently under medical treatment. Patient has no unilateral weaknesses. Stroke score is 0. Patient GCS is 15. The patient denies any injury or trauma, or eye pain. Patient daughter reports that just INTERACTIVE M[employer]EDIA DESIGNER her and patient got into a verbal argument about the patients compliance with her meals she eats for her diabetes. Daughter reports the patient skips meals and eats unhealthy. The patent arrives HTN, but due to patent and daughter argument, will recheck once patient is settled in the ER. The daughter has left to visit other family while patient in ER, will recheck BP soon. Onset Date: 12/30/17 Duration: Day(s): (4) Location: Reports: Head Front/Back Body Image: 1 - pain. Frontal Headache. Severity: Mild Improves with: Reports: None Worsens with: Reports: None Associated Symptoms: Reports: Headaches, Malaise. Denies: Confusion, Chest Pain , Cough, cough w sputum, Diaphoresis, Fever/Chills, Loss of Appetite, Nausea/ Vomiting, Rash, Seizure, Shortness of Breath, Syncope, Weakness Headache Pain Score (Numeric/FACES): 3 - Related Data Allergies Allergy/AdvReac Type Severity Reaction Status Date / Time meperidine [From Demerol] Allergy Cannot Verified 01/03/18 17:37 Remember nabumetone Allergy Cannot Verified 01/03/18 17:37 Remember oxycodone HCl [From Percocet] Allergy Hallucinati Verified 01/03/18 17:37 ons Home Meds: Home Meds Aspirin 325 mg PO DAILY 05/02/14 [History] cloNIDine [Catapres] 0.1 mg PO BID 05/02/14 [History] Cholecalciferol (Vitamin D3) [Vitamin D3] 1,000 unit PO DAILY 12/24/15 [History] Amitriptyline HCl 75 mg PO BEDTIME 12/29/16 [History] Cyanocobalamin (Vitamin B-12) [Vitamin B-12] 1 ml IM Q30D 04/13/17 [History] Lisinopril 5 mg PO DAILY #0 04/16/17 [Rx] Metoprolol Succinate 50 mg PO DAILY #30 tab.er.24h 04/16/17 [Rx] Hydrocodone/Acetaminophen [Hydrocodon-Acetaminophen 5-325] 1 - 2 tab PO Q4HR PRN 06/29/17 [History] Torsemide [Demadex] 20 mg PO DAILY 06/29/17 [History] metFORMIN [Glucophage] 500 mg PO BID 06/29/17 [History] Potassium Chloride 10 meq PO BID #0 07/03/17 [Rx] Ferrous Sulfate 325 mg PO DAILY 01/03/18 [History] Folic Acid 1 mg PO DAILY 01/03/18 [History] Insulin Glarg,Human.Rec.Analog [Lantus] 18 units SUBCUT BEDTIME 01/03/18 [ History] Rosuvastatin [Crestor] 5 mg PO DAILY 01/03/18 [History] Past Medical History HEENT History: Reports: Hard of Hearing Cardiovascular History: Reports: High Cholesterol, Hypertension, Other (See Below) Other Cardiovascular History: asymptomatic left cardiac stenosis, tachycardia Respiratory History: Reports: Sleep Apnea Gastrointestinal History: Reports: GERD Genitourinary History: Reports: None, UTI, Recurrent Other Genitourinary History: nocturia [employer] 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 SERVER History: Reports: None, Musculoskeletal History: Reports: Arthritis, Back Pain, Chronic, Fracture, Osteoporosis, RA, Other (See Below) Other Musculoskeletal History: Muscle spasms, arthralgia Neurological History: Reports: TIA, Other (See Below) Other Neuro History: daughter states pt has had a few ministrokes, on 01/03/18 states she has never had a mini stroke Psychiatric History: Reports: Anxiety, Other (See Below) Other Psychiatric History: Insomnia Endocrine/Metabolic History: Reports: Diabetes, Type II Hematologic History: Reports: None Immunologic History: Reports: None Oncologic (Cancer) History: Reports: Breast Dermatologic History: Reports: Other (See Below) Other Dermatologic History: Actinic keratosis - Past Surgical History HEENT Surgical History: Reports: Cataract Surgery GI Surgical History: Reports: Appendectomy, Cholecystectomy, Hernia, Inguinal Female Surgical History: Reports: Hysterectomy, Oophorectomy, Other (See Below) Neurological Surgical History: Reports: None Musculoskeletal Surgical History: Reports: Other (See Below) Social & Family History - Family History Family Medical History: Noncontributory - Tobacco Use Smoking Status *Q: Never Smoker Second Hand Smoke Exposure: No - Caffeine Use Caffeine Use: Reports: Coffee - Recreational Drug Use Recreational Drug Use: No - Living Situation & Occupation Living situation: Reports: , Alone ED ROS GENERAL - Review of Systems Review Of Systems: See Below Constitutional: Reports: Malaise. Denies: Fever, Chills, Weakness, Fatigue, Night Sweats, Diaphoresis, Decreased Appetite, Weight Gain HEENT: Reports: Vision Change (Diplopia). Denies: Dental Pain, Ear Discharge, Ear Pain, Eye Discharge, Eye Pain, Hearing Loss, Nosebleed, Nose Pain, Rhinitis , Sinus Problem, Throat Pain, Throat Swelling, Vertigo Respiratory: Reports: No Symptoms. Denies: Shortness of Breath, Wheezing, Pleuritic Chest Pain, Cough, Sputum Cardiovascular: Reports: No Symptoms, Edema (RLL. Last 1 month per patient. ). Denies: Chest Pain, Dyspnea on Exertion, Palpitations, Syncope Endocrine: Reports: No Symptoms GI/Abdominal: Reports: No Symptoms. Denies: Abdominal Pain, Diarrhea, Nausea, Vomiting : Reports: No Symptoms. Denies: Discharge, Dysuria, Flank Pain, Frequency, Hematuria, Pain, Urgency, Urinary Retention Musculoskeletal: Reports: No Symptoms. Denies: Neck Pain Skin: Reports: No Symptoms Neurological: Reports: Dizziness, Headache. Denies: Confusion, Numbness, Paresthesia, Pre-Existing Deficit, Seizure, Syncope, Tingling, Tremors, Trouble Speaking, Difficulty Walking, Weakness, Change in Speech, Gait Disturbance Psychiatric: Reports: No Symptoms Hematologic/Lymphatic: Reports: No Symptoms Immunologic: Reports: No Symptoms ED EXAM, GENERAL - Physical Exam Exam: See Below Exam Limited By: No Limitations General Appearance: Alert, WD/WN, No Apparent Distress Eye Exam: Bilateral Eye: EOMI, Normal Inspection (right eye patch removed for exam), PERRL, Other (both eyes dilated) Ears: Normal External Exam, Normal Canal, Hearing Grossly Normal, Normal TMs, Other (No temporal tenderness, swelling, redness, heat.) Ear Exam: Bilateral Ear: Auricle Normal, Canal Normal, TM normal Nose: Normal Inspection, Normal Mucosa, No Blood Throat/Mouth: Normal Inspection, Normal Lips, Normal Teeth, Normal Gums, Normal Oropharynx, Normal Voice, No Airway Compromise Head: Atraumatic, Normocephalic Neck: Normal Inspection, Supple, Non-Tender, Full Range of Motion Respiratory/Chest: No Respiratory Distress, Lungs Clear, Normal Breath Sounds, No Accessory Muscle Use, Chest Non-Tender Cardiovascular: Normal Peripheral Pulses, Regular Rate, Rhythm, No Edema, No Gallop, No JVD, No Murmur, No Rub Peripheral Pulses: 2+: Carotid (L), Carotid (R), Radial (L), Radial (R), Posterior Tibial (L), Posterior Tibial (R), Dorsalis Pedis (L), Dorsalis Pedis ( R) GI/Abdominal: Normal Bowel Sounds, Soft, Non-Tender, No Organomegaly, No Distention, No Abnormal Bruit, Pelvis Stable, Hernia Back Exam: Normal Inspection, Full Range of Motion. No: CVA Tenderness (L), CVA Tenderness (R) Extremities: Normal Inspection, Normal Range of Motion, Non-Tender, No Pedal Edema, Normal Capillary Refill. No: Pedal Edema Neurological: Alert, Oriented, CN II-XII Intact, Normal Cognition, Normal Gait, No Motor/Sensory Deficits Psychiatric: Normal Affect, Normal Mood Skin Exam: Warm, Dry, Intact, Normal Color, No Rash Lymphatic: No Adenopathy EKG INTERPRETATION EKG Date: 01/03/18 Time: 18:21 Rhythm: NSR Rate (Beats/Min): 94 ST-T: Normal Comparison: No Change Course - Vital Signs Last Recorded V/S: Last Vital Signs Temp 97.1 F 01/03/18 17:22 Pulse 101 H 01/03/18 17:22 Resp 18 01/03/18 17:22 BP 159/104 H 01/03/18 17:22 Pulse Ox 96 01/03/18 17:22 - Orders/Labs/Meds Orders: Active Orders 24 hr Category Date Time Status Head wo Cont [CT] Stat Exams 01/03/18 18:01 Taken Labs: Laboratory Tests 01/03/18 01/03/18 01/03/18 Range/Units 18:01 18:02 18:02 WBC 6.5 (5.0-10.0) 10^3/uL RBC 4.03 (4.00-5.50) 10^6/uL Hgb 11.1 L (12.0-16.0) g/dL Hct 35.9 L (37.0-47.0) % MCV 89.1 (82.0-94.0) fL MCH 27.5 (27.0-32.0) pg MCHC 30.9 L (33.0-38.0) g/dL RDW Coeff of Roxanna 13.3 (11.0-15.0) % Plt Count 346 (150-400) 10^3/uL Neut % (Auto) 62.0 (35-85) % Lymph % (Auto) 20.2 (10-55) % [place] % (Auto) 9.2 (0-16) % Eos % (Auto) 8.3 H (0-5) % Baso % (Auto) 0.3 (0-3) % Neut # (Auto) 4.06 (1.80-7.00) 10^3/uL Lymph # (Auto) 1.32 (1.00-4.80) 10^3/uL [place] # (Auto) 0.60 (0.00-0.80) 10^3/uL Eos # (Auto) 0.54 H (0.00-0.45) 10^3/uL Baso # (Auto) 0.02 10^3/uL ESR 88 H (0-20) mm/hr Sodium 142 (136-145) mEq/L Potassium 3.7 (3.5-5.0) mEq/L Chloride 101 (98-106) mEq/L Carbon Dioxide 31 (21-32) mmol/L BUN 19 H (7-18) mg/dL Creatinine 1.3 H (0.6-1.0) mg/dL Est Cr Clr Drug Dosing 25.02 mL/min Estimated GFR (MDRD) 39 L (>=60) mL/min Glucose 118 H (75-99) mg/dL Calcium 9.4 (8.4-10.1) mg/dL Total Bilirubin 0.3 (0.0-1.0) mg/dL AST 22 (15-37) U/L ALT 26 (12-78) U/L Alkaline Phosphatase 143 H (46-116) U/L C-Reactive Protein 2.8 H (0.2-0.8) mg/dL NT-Pro-B Natriuret Pep 106 (0-1000) pg/mL Total Protein 7.8 (6.4-8.2) g/dL Albumin 3.7 (3.4-5.0) g/dL Urine Color (YELLOW) Urine Appearance (CLEAR) Urine pH (4.5-8.0) Ur Specific [place] (1.003-1.020) Urine Protein (NEGATIVE) mg/dL Urine Glucose (UA) (NEGATIVE) mg/dL Urine Ketones (NEGATIVE) mg/dL Urine Occult Blood (NEGATIVE) Urine Nitrite (NEGATIVE) Urine Bilirubin (NEGATIVE) Urine Urobilinogen (0.2-1.0) EU/dL Ur Leukocyte Esterase (NEGATIVE) Urine RBC (0-5) /HPF Urine WBC (0-5) /HPF 01/03/18 Range/Units 18:17 WBC (5.0-10.0) 10^3/uL RBC (4.00-5.50) 10^6/uL Hgb (12.0-16.0) g/dL Hct (37.0-47.0) % MCV (82.0-94.0) fL MCH (27.0-32.0) pg MCHC (33.0-38.0) g/dL RDW Coeff of [place]oxanna (11.0-15.0) % Plt Count (150-400) 10^3/uL Neut % (Auto) (35-85) % Lymph % (Auto) (10-55) % [place] % (Auto) (0-16) % Eos % (Auto) (0-5) % Baso % (Auto) (0-3) % Neut # (Auto) (1.80-7.00) 10^3/uL Lymph # (Auto) (1.00-4.80) 10^3/uL [place] # (Auto) (0.00-0.80) 10^3/uL Eos # (Auto) (0.00-0.45) 10^3/uL Baso # (Auto) 10^3/uL ESR (0-20) mm/hr Sodium (136-145) mEq/L Potassium (3.5-5.0) mEq/L Chloride (98-106) mEq/L Carbon Dioxide (21-32) mmol/L BUN (7-18) mg/dL Creatinine (0.6-1.0) mg/dL Est Cr Clr Drug Dosing mL/min Estimated GFR (MDRD) (>=60) mL/min Glucose (75-99) mg/dL Calcium (8.4-10.1) mg/dL Total Bilirubin (0.0-1.0) mg/dL AST (15-37) U/L ALT (12-78) U/L Alkaline Phosphatase (46-116) U/L C-Reactive Protein (0.2-0.8) mg/dL NT-Pro-B Natriuret Pep (0-1000) pg/mL Total Protein (6.4-8.2) g/dL Albumin (3.4-5.0) g/dL Urine Color Yellow (YELLOW) Urine Appearance Clear (CLEAR) Urine pH 6.0 (4.5-8.0) Ur Specific [place] 1.015 (1.003-1.020) Urine Protein Negative (NEGATIVE) mg/dL Urine Glucose (UA) Negative (NEGATIVE) mg/dL Urine Ketones Negative (NEGATIVE) mg/dL Urine Occult Blood Negative (NEGATIVE) Urine Nitrite Negative (NEGATIVE) Urine Bilirubin Negative (NEGATIVE) Urine Urobilinogen 0.2 (0.2-1.0) EU/dL Ur Leukocyte Esterase Negative (NEGATIVE) Urine RBC Not seen (0-5) /HPF Urine WBC Not seen (0-5) /HPF Meds: Medications Discontinued Medications Generic Name Dose Route Start Last Admin Trade Name Agus PRN Reason Stop Dose Admin Acetaminophen 1,000 mg 01/03/18 19:05 01/03/18 19:11 Tylenol Extra Strength PO 01/03/18 19:06 Not Given ONETIME ONE Hydrocodone Bitart/Acetaminophen 1 tab 01/03/18 19:10 01/03/18 19:16 [place] 325-5 Mg PO 01/03/18 19:11 1 tab ONETIME ONE Administration - Radiology Interpretation Free Text/Narrative:: CT Head: No acute findings: Discussed with radiologist. CT Results Date: 01/03/18 - Re-Assessments/Exams Free Text/Narrative Re-Assessment/Exam: 01/03/18 18:48 Patient repeated BP is 158/87. This is her typical. She is calm and laughing with the nurse and in good spirits. Her Sed Rate is 88, this is consistent with her baseline values, and even better than most her values. Her CRP is 2.8, this is consistent with her baseline values. She has no wbc elevation. 01/03/18 19:[address] results. Patient reports having her typical chronic lower back pain. She usually takes [place] at bedtime for this pain. I will give her 1 [place] here in the ER now for this chronic pain. She is up ambulating without difficulty. Departure - Departure Time of Disposition: 20:02 Disposition: Home, Self-Care 01 Condition: Good Clinical Impression: Headache Qualifiers: Headache type: unspecified Headache chronicity pattern: acute headache Intractability: not intractable Qualified Code(s): R51 - Headache - Discharge Information Instructions: General Headache Without Cause, [id number] Referrals: Jeremy Linares MD [Primary Care Provider] - Forms: ED Department Discharge Additional Instructions: Followup with your primary care provider Return to the ER for worsening of condition or any emergent concerns Followup with your vessel specialist Keep eye patch in place - My Orders Last 24 Hours: My Active Orders 01/03/18 18:01 Head wo Cont [CT] Stat - Assessment/Plan Last 24 Hours: My Active Orders 01/03/18 18:01 Head wo Cont [CT] Stat Plan: PLEASE SEE RN NOTE FOR PFSH.
[2018-01-03] MEDS ORDERED: Acetaminophen 500 MG Tab PO ONE (19:05)
[2018-01-03] MEDS ORDERED: Acetaminophen/HYDROcodone 325-5 MG Tab PO ONE (19:10)
== END 2018-01-03 20:08 | disposition home or self-care (01) ==
LOC: CC.ED 17:21
DX: R51 Headache (principal); I10 Essential (primary) hypertension; E78.00 Pure hypercholesterolemia, unspecified; K21.9 Gastro-esophageal reflux disease without esophagitis; E11.9 Type 2 diabetes mellitus without complications; Z88.8 Allergy status to other drugs, medicaments and biological substances; Z79.899 Other long term (current) drug therapy
CPT/HCPCS: 36415; 70450; 80053; 81001; 83880; 85025; 85651; 86140; 93005; 93010; 99284; A9270

== ENCOUNTER 2018-05-28 12:54 | Inpatient (IN) | payer MEDICARE, BC ==
[2018-05-28] MEDS ORDERED: Sodium Chloride 0.9% 1,000 ML IV SCH (14:00)
[2018-05-28] MEDS ORDERED: Sodium Chloride 0.9% 500 ML IV SCH (15:00)
--- NOTE | 2018-05-28 15:53 | EDM.PDOC ---
ED HPI GENERAL MEDICAL PROBLEM - General Chief Complaint: General Stated Complaint: falls Time Seen by Provider: 05/28/18 13:15 Source of Information: Reports: Patient History Limitations: Reports: No Limitations - History of Present Illness INITIAL COMMENTS - FREE TEXT/NARRATIVE: Analia is an 87-year-old female with PMH of type II DM, hypertension, hyperlipidemia, temporal arteritis, pedal edema, chronic back pain with chronic narcotic use, and anemia, who presents to the ED via [facility] with c/o frequent falls and weakness. She reports she was started on metolazone last week for pedal edema and since then she has felt worse. She does report that her edema did resolve. She reports she has fallen 10+ times over the past few weeks. She denies any injuries other than scalp laceration with these falls. She reports she has been very weak for awhile now. Family reports she never drinks fluids other than coffee. She does not have any complaints at the time of visit other than weakness and fatigue. She does currently reside at home by herself. She did have a fall two fall two days ago, which resulted in a scalp laceration. She did not come in at the time of the fall. She denies LOC. Family reports that since starting metolazone she has also been very lethargic. They report on Saturday they had to sternal rub her to wake her up. She falls asleep easy. Denies any recent illness. No chest pain, shortness of breath, fever, chills, decreased appetite, or abdominal pain. She does report she had an appointment with her PCP Shirley Alvarado PA-C this afternoon to discuss these issues and the medication, but she fell prior to that so they called EMS. Onset: Gradual Duration: Getting Worse Location: Reports: Generalized Associated Symptoms: Reports: Weakness, Other (fatigue, scalp laceration). Denies: Confusion, Chest Pain, Cough, cough w sputum, Diaphoresis, Fever/Chills , Headaches, Loss of Appetite, Malaise, Nausea/Vomiting, Rash, Seizure, Shortness of Breath, Syncope - Related Data Allergies Allergy/AdvReac Type Severity Reaction Status Date / Time meperidine [From Demerol] Allergy Cannot Verified 05/28/18 13:00 Remember nabumetone Allergy Cannot Verified 05/28/18 13:00 Remember oxycodone HCl [From Percocet] Allergy Hallucinati Verified 05/28/18 13:00 ons Home Meds: Home Meds Aspirin 325 mg PO DAILY 05/02/14 [History] cloNIDine [Catapres] 0.1 mg PO BID 05/02/14 [History] Cholecalciferol (Vitamin D3) [Vitamin D3] 1,000 unit PO DAILY 12/24/15 [History] Amitriptyline HCl 75 mg PO BEDTIME 12/29/16 [History] Cyanocobalamin (Vitamin B-12) [Vitamin B-12] 1 ml IM Q30D 04/13/17 [History] Lisinopril 5 mg PO DAILY #0 04/16/17 [Rx] Metoprolol Succinate 50 mg PO DAILY #30 tab.er.24h 04/16/17 [Rx] Hydrocodone/Acetaminophen [Hydrocodon-Acetaminophen 5-325] 1 - 2 tab PO Q4HR PRN 06/29/17 [History] Torsemide [Demadex] 40 mg PO DAILY 06/29/17 [History] metFORMIN [Glucophage] 500 mg PO BID 06/29/17 [History] Potassium Chloride 10 meq PO BID #0 07/03/17 [Rx] Ferrous Sulfate 325 mg PO DAILY 01/03/18 [History] Folic Acid 1 mg PO DAILY 01/03/18 [History] Insulin Glarg,Human.Rec.Analog [Lantus] 18 units SUBCUT BEDTIME 01/03/18 [ History] Rosuvastatin [Crestor] 5 mg PO DAILY 01/03/18 [History] Pregabalin [Lyrica] 50 mg PO BID 05/28/18 [History] metOLazone [Zaroxolyn] 5 mg PO ASDIRECTED 05/28/18 [History] predniSONE [Prednisone] 10 mg PO DAILY 05/28/18 [History] Past Medical History HEENT History: Reports: Hard of Hearing Cardiovascular History: Reports: High Cholesterol, Hypertension, Other (See Below) Other Cardiovascular History: asymptomatic left cardiac stenosis, tachycardia Respiratory History: Reports: Sleep Apnea Gastrointestinal History: Reports: GERD Genitourinary History: Reports: None, UTI, Recurrent Other Genitourinary History: nocturia [employer] History: Reports: None, Musculoskeletal History: Reports: Arthritis, Back Pain, Chronic, Fracture, Osteoporosis, RA, Other (See Below) Other Musculoskeletal History: Muscle spasms, arthralgia Neurological History: Reports: TIA, Other (See Below) Other Neuro History: daughter states pt has had a few ministrokes, on 01/03/18 states she has never had a mini stroke Psychiatric History: Reports: Anxiety, Other (See Below) Other Psychiatric History: Insomnia Endocrine/Metabolic History: Reports: Diabetes, Type II Hematologic History: Reports: None Immunologic History: Reports: None Oncologic (Cancer) History: Reports: Breast Dermatologic History: Reports: Other (See Below) Other Dermatologic History: Actinic keratosis - Past Surgical History HEENT Surgical History: Reports: Cataract Surgery GI Surgical History: Reports: Appendectomy, Cholecystectomy, Hernia, Inguinal Female Surgical History: Reports: Hysterectomy, Oophorectomy, Other (See Below) Neurological Surgical History: Reports: None Musculoskeletal Surgical History: Reports: Other (See Below) Social & Family History - Family History Family Medical History: Noncontributory - Tobacco Use Smoking Status *Q: Never Smoker - Caffeine Use Caffeine Use: Reports: None - Recreational Drug Use Recreational Drug Use: No - Living Situation & Occupation Living situation: Reports: , Alone ED ROS GENERAL - Review of Systems Review Of Systems: See Below Constitutional: Reports: Weakness, Fatigue. Denies: Fever, Chills, Decreased Appetite, Weight Loss HEENT: Reports: No Symptoms Respiratory: Reports: No Symptoms. Denies: Shortness of Breath, Wheezing, Pleuritic Chest Pain, Cough, Sputum Cardiovascular: Reports: No Symptoms. Denies: Chest Pain, Dyspnea on Exertion, Edema, Lightheadedness, Syncope Endocrine: Reports: Fatigue GI/Abdominal: Denies: Abdominal Pain, Constipation, Diarrhea, Decreased Appetite , Hematochezia, Melena, Nausea, Vomiting : Reports: No Symptoms. Denies: Dysuria, Frequency, Urgency Musculoskeletal: Reports: No Symptoms Skin: Reports: Other (laceration). Denies: Pallor, Diaphoresis Neurological: Reports: Difficulty Walking (due to weakness), Weakness ( generalized). Denies: Confusion, Dizziness, Headache, Numbness, Paresthesia Psychiatric: Reports: No Symptoms Hematologic/Lymphatic: Reports: No Symptoms Immunologic: Reports: No Symptoms ED EXAM, GENERAL - Physical Exam Exam: See Below Exam Limited By: No Limitations General Appearance: Alert, WD/WN, No Apparent Distress Eye Exam: Bilateral Eye: EOMI, Normal Fundi, Normal Inspection, PERRL Head: Normocephalic, Other (scalp laceration) Neck: Normal Inspection, Supple, Non-Tender, Full Range of Motion Respiratory/Chest: No Respiratory Distress, Lungs Clear, Normal Breath Sounds, No Accessory Muscle Use, Chest Non-Tender Cardiovascular: Normal Peripheral Pulses, Regular Rate, Rhythm, No Edema, No Gallop, No JVD, No Murmur, No Rub GI/Abdominal: Normal Bowel Sounds, Soft, Non-Tender, No Organomegaly, No Distention, No Abnormal Bruit, No Mass Back Exam: Normal Inspection, Full Range of Motion, NT Extremities: Normal Inspection, Normal Range of Motion, Non-Tender, Normal Capillary Refill, No Pedal Edema Neurological: Alert, Oriented, CN II-XII Intact, Normal Cognition, No Motor/ Sensory Deficits Psychiatric: Normal Affect, Normal Mood Skin Exam: Warm, Dry, Intact, Normal Color, No Rash Course - Vital Signs Last Recorded V/S: Last Vital Signs Temp 96.8 F 05/28/18 14:18 Pulse 84 05/28/18 14:18 Resp 18 05/28/18 14:18 BP 83/53 L 05/28/18 14:18 Pulse Ox 98 05/28/18 14:18 - Orders/Labs/Meds Orders: Active Orders 24 hr Category Date Time Status UA W/MICROSCOPIC [URIN] Stat Lab 05/28/18 13:37 Ordered Sodium Chloride 0.9% [Normal Saline] 1,000 ml Med 05/28/18 14:00 Active IV ASDIRECTED Medication Orders Sodium Chloride (Normal Saline) 1,000 mls @ 125 mls/hr IV ASDIRECTED RAJ Last Admin: 05/28/18 14:04 Dose: 125 mls/hr Sodium Chloride (Normal Saline) 500 mls @ 999 mls/hr IV .BOLUS RAJ Labs: Laboratory Tests 05/28/18 05/28/18 05/28/18 Range/Units 13:08 13:08 13:37 WBC 8.9 (5.0-10.0) 10^3/uL RBC 3.33 L (4.00-5.50) 10^6/uL Hgb 10.2 L (12.0-16.0) g/dL Hct 31.9 L (37.0-47.0) % MCV 95.8 H (82.0-94.0) fL MCH 30.6 (27.0-32.0) pg MCHC 32.0 L (33.0-38.0) g/dL RDW Coeff of Roxanna 13.9 (11.0-15.0) % Plt Count 374 (150-400) 10^3/uL Neut % (Auto) 72.3 (35-85) % Lymph % (Auto) 18.7 (10-55) % [place] % (Auto) 7.6 (0-16) % Eos % (Auto) 1.1 (0-5) % Baso % (Auto) 0.3 (0-3) % Neut # (Auto) 6.40 (1.80-7.00) 10^3/uL Lymph # (Auto) 1.66 (1.00-4.80) 10^3/uL [place] # (Auto) 0.67 (0.00-0.80) 10^3/uL Eos # (Auto) 0.10 (0.00-0.45) 10^3/uL Baso # (Auto) 0.03 10^3/uL Sodium 133 L (136-145) mEq/L Potassium 3.2 L D (3.5-5.0) mEq/L Chloride 93 L (98-106) mEq/L Carbon Dioxide 29 (21-32) mmol/L BUN 56 H D (7-18) mg/dL Creatinine 2.0 H D (0.6-1.0) mg/dL Est Cr Clr Drug Dosing 16.26 mL/min Estimated GFR (MDRD) 24 L (>=60) mL/min Glucose 90 (75-99) mg/dL Calcium 9.0 (8.4-10.1) mg/dL C-Reactive Protein 1.5 H (0.2-0.8) mg/dL Urine Color Yellow (YELLOW) Urine Appearance Clear (CLEAR) Urine pH 5.0 (4.5-8.0) Ur Specific [place] 1.010 (1.003-1.020) Urine Protein Negative (NEGATIVE) mg/dL Urine Glucose (UA) Negative (NEGATIVE) mg/dL Urine Ketones Negative (NEGATIVE) mg/dL Urine Occult Blood Negative (NEGATIVE) Urine Nitrite Negative (NEGATIVE) Urine Bilirubin Negative (NEGATIVE) Urine Urobilinogen 0.2 (0.2-1.0) EU/dL Ur Leukocyte Esterase Negative (NEGATIVE) Urine RBC Not seen (0-5) /HPF Urine WBC 0-5 (0-5) /HPF Ur Squamous Epith Cells Moderate H (NOT SEEN) /HPF Urine Bacteria Few H (NOT SEEN) /HPF Urine Mucus Occasional H (NOT SEEN) /HPF Meds: Medications Generic Name Dose Route Start Last Admin Trade Name Freq PRN Reason Stop Dose Admin Sodium Chloride 1,000 mls @ 125 mls/hr 05/28/18 14:00 05/28/18 14:04 Normal Saline IV 125 mls/hr ASDIRECTED ARJ Administration Sodium Chloride 500 mls @ 999 mls/hr 05/28/18 15:00 Normal Saline IV .BOLUS RAJ - Re-Assessments/Exams Free Text/Narrative Re-Assessment/Exam: Discussed lab results with patient and daughter. Her creatinine has increased from 1.2 to 2.0 in the past week. Given patients weakness, renal insufficiency, and recurrent falls, I feel patient needs to be hospitalized. She may require SNF as she is very vulnerable living at home with 10+ falls in the past few weeks. This was verbalized to patient and family, who were agreeable to admission. Departure - Departure Time of Disposition: 14:41 Disposition: Admitted As Inpatient 68 Condition: Fair Clinical Impression: Acute on chronic renal insufficiency, Weakness, Dehydration - Discharge Information - Problem List & Annotations (1) Acute on chronic renal insufficiency SNOMED Code(s): 554213088 Code(s): N28.9 - DISORDER OF KIDNEY AND URETER, UNSPECIFIED; N18.9 - CHRONIC KIDNEY DISEASE, UNSPECIFIED Status: Chronic Current Visit: Yes (2) Dehydration SNOMED Code(s): 24882469 Code(s): E86.0 - DEHYDRATION Status: Acute Current Visit: Yes (3) Weakness SNOMED Code(s): 63377679 Code(s): R53.1 - WEAKNESS Status: Chronic Current Visit: Yes (4) Diabetes mellitus SNOMED Code(s): 33827227 Code(s): E11.9 - TYPE 2 DIABETES MELLITUS WITHOUT COMPLICATIONS Status: Chronic Current Visit: No Qualifiers: Diabetes mellitus type: type 2 Diabetes mellitus watermelon inspector insulin use: with watermelon inspector use Diabetes mellitus complication status: with kidney complications Diabetes mellitus complication detail: with chronic kidney disease Chronic kidney disease stage: stage 3 (moderate) Qualified Code(s): E11.22 - Type 2 diabetes mellitus with diabetic chronic kidney disease; N18.3 - Chronic kidney disease, stage 3 (moderate); Z79.4 - intermediate card tender (current) use of insulin (5) Hyperlipidemia SNOMED Code(s): 97901917 Code(s): E78.5 - HYPERLIPIDEMIA, UNSPECIFIED Status: Chronic Current Visit: No Qualifiers: Hyperlipidemia type: unspecified (6) Hypertension SNOMED Code(s): 54978601 Code(s): I10 - ESSENTIAL (PRIMARY) HYPERTENSION Status: Chronic Current Visit: No Qualifiers: Hypertension type: essential hypertension (7) Hypokalemia SNOMED Code(s): 79995488 Code(s): E87.6 - HYPOKALEMIA Status: Acute Current Visit: Yes - Problem List Review Problem List Initiated/Reviewed/Updated: Yes - My Orders Last 24 Hours: My Active Orders 05/28/18 13:37 UA W/MICROSCOPIC [URIN] Stat 05/28/18 14:00 Sodium Chloride 0.9% [Normal Saline] 1,000 ml IV ASDIRECTED - Assessment/Plan Admission H&P: Please use this note as an admission H&P Last 24 Hours: My Active Orders 05/28/18 13:37 UA W/MICROSCOPIC [URIN] Stat 05/28/18 14:00 Sodium Chloride 0.9% [Normal Saline] 1,000 ml IV ASDIRECTED Plan: Acute on Chronic Renal Insufficiency/Dehydration/Hypokalemia Admit acute to Dr. Corona NS with 20 KCl @ 125 mL overnight. 500 mL bolus due to hypotension. Recheck labs in am. Creatinine 2.0 today. Was 1.2 on 05/20/2018. Hold metolazone and torsemide. Monitor for s/s of fluid overload. Hypotension Patient was given 500 mL NS bolus with improvement in BP Hold BP meds for systolic BP < 100 Generalized Weakness/Frequent Falls Consult to PT for strengthening and to evaluate for safety at home. I do suspect , that given patient's frequent falls with injury, she may require SNF placement. Consult case aide for this as well. Type II DM QID accuchecks and moderate dose SSI Home meds Hypokalemia NS with 20 KCl KDur 10 meq BID
[2018-05-28] MEDS ORDERED: Magnesium Hydroxide 400 MG/5 ML Susp 30 ML Cup PO PRN (16:09)
[2018-05-28] MEDS ORDERED: Ondansetron 4 MG/2 ML SDV IV PRN (16:09)
[2018-05-28] MEDS ORDERED: Temazepam 15 MG Cap PO PRN (16:09)
[2018-05-28] MEDS ORDERED: Docusate Sodium 100 MG Cap PO PRN (16:09)
[2018-05-28] MEDS ORDERED: Polyethylene Glycol 3350 Powder 17 GM Packet PO PRN (16:09)
[2018-05-28] MEDS: Insulin Aspart 100 Units/ML 3 ML Pen SUBCUT SCH ×2 (17:21→21:20)
[2018-05-28] MEDS: metFORMIN 500 MG Tab PO SCH (17:21)
[2018-05-28] MEDS: Potassium Chloride 10 MEQ Tab.ER PO SCH (17:21)
[2018-05-28] MEDS: NS + KCl 20mEq/L 1,000 ML IV SCH (18:26)
[2018-05-28] MEDS ORDERED: Insulin Glargine,Human Rec. Analog 100 Units/ML 3 ML Pen SUBCUT SCH (20:00)
[2018-05-28] MEDS ORDERED: Amitriptyline 25 MG Tab PO SCH (20:00)
[2018-05-28] MEDS: Enoxaparin 30 MG/0.3 ML Syringe SUBCUT SCH (21:00)
[2018-05-28] MEDS: Insulin Detemir 100 Units/ML 3 ML Pen SUBCUT SCH (21:42)
[2018-05-28] MEDS: Acetaminophen/HYDROcodone 325-5 MG Tab PO PRN (21:58)
[2018-05-29] MEDS: NS + KCl 20mEq/L 1,000 ML IV SCH (02:26)
[2018-05-29] MEDS: Ferrous Sulfate 324 MG Tab.EC PO SCH (07:32)
[2018-05-29] MEDS: metFORMIN 500 MG Tab PO SCH (07:34)
[2018-05-29] MEDS: Metoprolol Succinate 25 MG Tab.ER PO SCH (07:34)
[2018-05-29] MEDS: Aspirin 325 MG Tab PO SCH (07:34)
[2018-05-29] MEDS: Folic Acid 1 MG Tab PO SCH (07:34)
[2018-05-29] MEDS: Lisinopril 5 MG Tab PO SCH (07:39)
[2018-05-29] MEDS: Potassium Chloride 10 MEQ Tab.ER PO SCH ×2 (07:39→16:38)
[2018-05-29] MEDS ORDERED: predniSONE 5 MG Tab PO SCH (08:00)
[2018-05-29] MEDS ORDERED: Potassium Chloride 40 MEQ in Premix Bag 1 BAG IV ONE (08:57)
[2018-05-29] MEDS ORDERED: Magnesium Sulfate/D5W 2 GM in Premix Bag 1 BAG IV ONE (09:00)
[2018-05-29] MEDS: Insulin Aspart 100 Units/ML 3 ML Pen SUBCUT SCH ×4 (09:23→20:38)
[2018-05-29] MEDS: Acetaminophen 325 MG Tab PO PRN (12:58)
[2018-05-29] MEDS: Amitriptyline 25 MG Tab PO SCH (20:02)
[2018-05-29] MEDS: Enoxaparin 30 MG/0.3 ML Syringe SUBCUT SCH (20:02)
[2018-05-29] MEDS: Insulin Detemir 100 Units/ML 3 ML Pen SUBCUT SCH (20:37)
--- NOTE | 2018-05-29 21:58 | PCM.PN ---
- General Info Date of Service: 05/29/18 Admission Dx/Problem (Free Text): Acute on Chronic Renal Insufficiency Functional Status: Reports: Pain Controlled, Tolerating Diet. Denies: Ambulating - Review of Systems General: Reports: Weakness, Fatigue. Denies: Fever HEENT: Denies: Ear Pain, Sinus Congestion, Sore Throat Pulmonary: Denies: Shortness of Breath, Cough Cardiovascular: Reports: Edema. Denies: Chest Pain, Lightheadedness Gastrointestinal: Reports: Other (abdominal bloating). Denies: Abdominal Pain, Nausea, Vomiting Genitourinary: Reports: No Symptoms Musculoskeletal: Reports: No Symptoms Skin: Reports: No Symptoms Neurological: Reports: No Symptoms - Patient Data Vitals - Most Recent: Last Vital Signs Temp 99.8 F 05/29/18 20:00 Pulse 107 H 05/29/18 20:00 Resp 20 05/29/18 20:00 BP 141/73 H 05/29/18 20:00 Pulse Ox 96 05/29/18 20:00 Weight - Most Recent: 176 lb 1.6 oz I&O - Last 24 Hours: Intake & Output 05/29/18 05/29/18 05/29/18 06:59 14:59 22:59 Intake Total 1500 1430 1310 Balance 1500 1430 1310 Lab Results Last 24 Hours: Laboratory Results - last 24 hr 05/29/18 05/29/18 05/29/18 Range/Units 07:00 07:20 07:20 WBC 6.3 (5.0-10.0) 10^3/uL RBC 3.32 L (4.00-5.50) 10^6/uL Hgb 10.1 L (12.0-16.0) g/dL Hct 32.5 L (37.0-47.0) % MCV 97.9 H (82.0-94.0) fL MCH 30.4 (27.0-32.0) pg MCHC 31.1 L (33.0-38.0) g/dL RDW Coeff of Roxanna 13.7 (11.0-15.0) % Plt Count 310 (150-400) 10^3/uL Neut % (Auto) 69.6 (35-85) % Lymph % (Auto) 20.8 (10-55) % [place] % (Auto) 7.5 (0-16) % Eos % (Auto) 1.8 (0-5) % Baso % (Auto) 0.3 (0-3) % Neut # (Auto) 4.36 (1.80-7.00) 10^3/uL Lymph # (Auto) 1.30 (1.00-4.80) 10^3/uL [place] # (Auto) 0.47 (0.00-0.80) 10^3/uL Eos # (Auto) 0.11 (0.00-0.45) 10^3/uL Baso # (Auto) 0.02 10^3/uL ESR 123 H (0-20) mm/hr Sodium 138 (136-145) mEq/L Potassium 3.3 L (3.5-5.0) mEq/L Chloride 101 (98-106) mEq/L Carbon Dioxide 33 H (21-32) mmol/L BUN 46 H (7-18) mg/dL Creatinine 1.6 H (0.6-1.0) mg/dL Est Cr Clr Drug Dosing 20.33 mL/min Estimated GFR (MDRD) 31 L (>=60) mL/min Glucose 70 L (75-99) mg/dL POC Glucose (75-105) mg/dl Calcium 8.8 (8.4-10.1) mg/dL Magnesium 1.7 L (1.8-2.4) mg/dL 05/29/18 05/29/18 05/29/18 Range/Units 07:50 11:38 17:32 WBC (5.0-10.0) 10^3/uL RBC (4.00-5.50) 10^6/uL Hgb (12.0-16.0) g/dL Hct (37.0-47.0) % MCV (82.0-94.0) fL MCH (27.0-32.0) pg MCHC (33.0-38.0) g/dL RDW Coeff of Roxanna (11.0-15.0) % Plt Count (150-400) 10^3/uL Neut % (Auto) (35-85) % Lymph % (Auto) (10-55) % [place] % (Auto) (0-16) % Eos % (Auto) (0-5) % Baso % (Auto) (0-3) % Neut # (Auto) (1.80-7.00) 10^3/uL Lymph # (Auto) (1.00-4.80) 10^3/uL [place] # (Auto) (0.00-0.80) 10^3/uL Eos # (Auto) (0.00-0.45) 10^3/uL Baso # (Auto) 10^3/uL ESR (0-20) mm/hr Sodium (136-145) mEq/L Potassium (3.5-5.0) mEq/L Chloride (98-106) mEq/L Carbon Dioxide (21-32) mmol/L BUN (7-18) mg/dL Creatinine (0.6-1.0) mg/dL Est Cr Clr Drug Dosing mL/min Estimated GFR (MDRD) (>=60) mL/min Glucose (75-99) mg/dL POC Glucose 62 L 174 H 191 H (75-105) mg/dl Calcium (8.4-10.1) mg/dL Magnesium (1.8-2.4) mg/dL 05/29/18 Range/Units 20:36 WBC (5.0-10.0) 10^3/uL RBC (4.00-5.50) 10^6/uL Hgb (12.0-16.0) g/dL Hct (37.0-47.0) % MCV (82.0-94.0) fL MCH (27.0-32.0) pg MCHC (33.0-38.0) g/dL RDW Coeff of Roxanna (11.0-15.0) % Plt Count (150-400) 10^3/uL Neut % (Auto) (35-85) % Lymph % (Auto) (10-55) % [place] % (Auto) (0-16) % Eos % (Auto) (0-5) % Baso % (Auto) (0-3) % Neut # (Auto) (1.80-7.00) 10^3/uL Lymph # (Auto) (1.00-4.80) 10^3/uL [place] # (Auto) (0.00-0.80) 10^3/uL Eos # (Auto) (0.00-0.45) 10^3/uL Baso # (Auto) 10^3/uL ESR (0-20) mm/hr Sodium (136-145) mEq/L Potassium (3.5-5.0) mEq/L Chloride (98-106) mEq/L Carbon Dioxide (21-32) mmol/L BUN (7-18) mg/dL Creatinine (0.6-1.0) mg/dL Est Cr Clr Drug Dosing mL/min Estimated GFR (MDRD) (>=60) mL/min Glucose (75-99) mg/dL POC Glucose 146 H (75-105) mg/dl Calcium (8.4-10.1) mg/dL Magnesium (1.8-2.4) mg/dL Med Orders - Current: Current Medications Acetaminophen (Tylenol) 650 mg PO Q4H PRN PRN Reason: Pain (Mild 1-3)/fever Last Admin: 05/29/18 12:58 Dose: 650 mg Hydrocodone Bitart/Acetaminophen ([place] 325-5 Mg) 1 - 2 tab PO Q4H PRN PRN Reason: PAIN Last Admin: 05/28/18 21:58 Dose: 2 tab Amitriptyline HCl (Elavil) 25 mg PO BEDTIME [facility] Last Admin: 05/29/18 20:02 Dose: 25 mg Aspirin (Aspirin) 325 mg PO DAILY [facility] [place] Last Admin: 05/29/18 07:34 Dose: 325 mg Docusate Sodium (Colace) 100 mg PO BID PRN PRN Reason: Constipation Enoxaparin Sodium (Lovenox) 30 mg SUBCUT BEDTIME [facility] [place] Last Admin: 05/29/18 20:02 Dose: 30 mg Ferrous Sulfate (Ferrous Sulfate) 324 mg PO DAILY [facility] [place] Last Admin: 05/29/18 07:32 Dose: 324 mg Folic Acid (Folic Acid) 1 mg PO DAILY [facility] [place] Last Admin: 05/29/18 07:34 Dose: 1 mg Insulin Aspart (Novolog) 0 unit SUBCUT WITHMEALSANDBED [facility]; Protocol Last Admin: 05/29/18 20:38 Dose: Not Given Insulin Detemir (Levemir) 16 unit SUBCUT BEDTIME [facility] [place] Last Admin: 05/29/18 20:37 Dose: 16 units Lisinopril (Prinivil) 5 mg PO DAILY [facility] [place] Last Admin: 05/29/18 07:39 Dose: 5 mg Magnesium Hydroxide (Milk Of Magnesia) 30 ml PO Q12H PRN PRN Reason: Constipation Metoprolol Succinate (Toprol Xl) 50 mg PO DAILY [facility] [place] Last Admin: 05/29/18 07:34 Dose: 50 mg Ondansetron HCl (Zofran) 4 mg IV Q6H PRN PRN Reason: Nausea/Vomiting Polyethylene Glycol (Miralax) 17 gm PO DAILY PRN PRN Reason: Constipation Potassium Chloride (Klor-Con 10) 10 meq PO BIDMEALS [facility] [place] Last Admin: 05/29/18 16:38 Dose: 10 meq Prednisone (Prednisone) 5 mg PO DAILY [facility] [place] Temazepam (Restoril) 15 mg PO BEDTIME PRN PRN Reason: Sleep Discontinued Medications Amitriptyline HCl (Elavil) 75 mg PO BEDTIME [facility] [place] Last Admin: 05/28/18 21:00 Dose: 75 mg Sodium Chloride (Normal Saline) 1,000 mls @ 125 mls/hr IV ASDIRECTED [facility] [place] Last Admin: 05/28/18 14:04 Dose: 125 mls/hr Sodium Chloride (Normal Saline) 500 mls @ 999 mls/hr IV .BOLUS [facility] [place] Potassium Chloride/Sodium Chloride (Normal Saline With 20 Meq Kcl) 1,000 mls @ 125 mls/hr IV ASDIRECTED [facility] [place] Last Admin: 05/29/18 02:26 Dose: 125 mls/hr Magnesium Sulfate/Dextrose 2 (gm/ Premix) 200 mls @ 100 mls/hr IV ONETIME ONE Stop: 05/29/18 10:59 Last Admin: 05/29/18 09:57 Dose: 100 mls/hr Potassium Chloride 40 meq/ (Premix) 100 mls @ 25 mls/hr IV ONETIME ONE Stop: 05/29/18 12:56 Last Admin: 05/29/18 09:58 Dose: 25 mls/hr Insulin Glargine (Lantus Solostar) 18 units SUBCUT BEDTIME [facility] [place] Last Admin: 05/28/18 21:35 Dose: Not Given Metformin HCl (Glucophage) 500 mg PO BIDMEALS [facility] [place] Last Admin: 05/29/18 07:34 Dose: 500 mg Prednisone (Prednisone) 10 mg PO DAILY [facility] [place] Last Admin: 05/29/18 07:32 Dose: 10 mg - Exam General: Alert, Oriented HEENT: Mucous Membr. Moist/[place] Neck: Supple Lungs: Clear to Auscultation, Normal Respiratory Effort Cardiovascular: Regular Rate, Regular Rhythm GI/Abdominal Exam: Normal Bowel Sounds, Soft, Non-Tender Extremities: Pedal Edema (1+ pitting edema bilaterally) Skin: Warm, Dry - Problem List & Annotations (1) Acute on chronic renal insufficiency SNOMED Code(s): 491735911 Code(s): N28.9 - DISORDER OF KIDNEY AND URETER, UNSPECIFIED; N18.9 - CHRONIC KIDNEY DISEASE, UNSPECIFIED Status: Chronic Priority: High Current Visit: Yes (2) Hypomagnesemia SNOMED Code(s): 695800883 Code(s): E83.42 - HYPOMAGNESEMIA Status: Acute Priority: High Current Visit: Yes (3) Hypokalemia SNOMED Code(s): 83215386 Code(s): E87.6 - HYPOKALEMIA Status: Acute Priority: High Current Visit : Yes (4) Diabetes mellitus SNOMED Code(s): 41044414 Code(s): E11.9 - TYPE 2 DIABETES MELLITUS WITHOUT COMPLICATIONS Status: Chronic Priority: Medium Current Visit: Yes Qualifiers: Diabetes mellitus type: type 2 Diabetes mellitus alf insulin use: with alf use Diabetes mellitus complication status: with kidney complications Diabetes mellitus complication detail: with chronic kidney disease Chronic kidney disease stage: stage 3 (moderate) Qualified Code(s): E11.22 - Type 2 diabetes mellitus with diabetic chronic kidney disease; N18.3 - Chronic kidney disease, stage 3 (moderate); Z79.4 - [facility] (current) use of insulin - Problem List Review Problem List Initiated/Reviewed/Updated: Yes - My Orders Last 24 Hours: My Active Orders 05/29/18 20:00 Amitriptyline [Elavil] 25 mg PO BEDTIME 05/30/18 05:11 MAGNESIUM [CHEM] Routine 05/30/18 08:00 predniSONE 5 mg PO DAILY - Assessment Assessment:: Acute on Chronic Renal Insufficiency Hypokalemia Hypomagnesemia - Plan Plan:: Patient is feeling better this am, still weak. Expresses concerns that she is still unsteady. Admits to abdominal bloating, pressure. Feels it causes difficulty with good air intake. She states it has been present now for quite some time but does not feel her meal intake should account for this, however, she does admit she has gained about 30#. Has been having issues with edema which is improved with the Metolazone, however, creatinine was increased to 2.0. Today, creatinine 1.6. Potassium is low at 3.3, magnesium 1.7. Will stop IV fluids. Give potassium 40 meq IV and 2 gm of IV magnesium today. Medication review done with Dr. Corona. Will stop her Catapress. Stop Metolazone. Decrease Amitryptiline, prednisone. Reevalute labs and add sed rate in am. Inappropriate for discharge.
[2018-05-30] MEDS: Acetaminophen/HYDROcodone 325-5 MG Tab PO PRN ×2 (00:47→11:45)
[2018-05-30] MEDS: Aspirin 325 MG Tab PO SCH (07:39)
[2018-05-30] MEDS: Ferrous Sulfate 324 MG Tab.EC PO SCH (07:39)
[2018-05-30] MEDS: Potassium Chloride 10 MEQ Tab.ER PO SCH ×2 (07:40→17:29)
[2018-05-30] MEDS: Folic Acid 1 MG Tab PO SCH (07:40)
[2018-05-30] MEDS: Lisinopril 5 MG Tab PO SCH (07:40)
[2018-05-30] MEDS: Metoprolol Succinate 25 MG Tab.ER PO SCH (07:41)
[2018-05-30] MEDS: predniSONE 5 MG Tab PO SCH (07:42)
[2018-05-30] MEDS: Insulin Aspart 100 Units/ML 3 ML Pen SUBCUT SCH ×4 (07:47→21:06)
[2018-05-30] MEDS ORDERED: Lisinopril 5 MG Tab PO ONE (07:59)
[2018-05-30] MEDS ORDERED: Iopamidol 612 MG/ML 100 ML Bottle IVPUSH ONE (11:28)
--- NOTE | 2018-05-30 14:16 | PCM.PN ---
- General Info Date of Service: 05/30/18 Admission Dx/Problem (Free Text): Acute on Chronic Renal Insufficiency Subjective Update: Acute on chronic renal insufficiency Weakness History of Falls Functional Status: Reports: Pain Controlled, Tolerating Diet, Ambulating - Review of Systems General: Reports: Weakness, Fatigue. Denies: Fever HEENT: Reports: No Symptoms Pulmonary: Denies: Shortness of Breath, Cough Cardiovascular: Denies: Chest Pain, Edema, Lightheadedness Gastrointestinal: Reports: Other (abdominal bloating). Denies: Abdominal Pain, Nausea, Vomiting Genitourinary: Reports: No Symptoms Musculoskeletal: Reports: Back Pain, Leg Pain Skin: Reports: No Symptoms Neurological: Reports: No Symptoms - Patient Data Vitals - Most Recent: Last Vital Signs Temp 98.5 F 05/30/18 11:52 Pulse 98 05/30/18 11:52 Resp 18 05/30/18 11:52 BP 157/89 H 05/30/18 11:52 Pulse Ox 97 05/30/18 11:52 Weight - Most Recent: 170 lb I&O - Last 24 Hours: Intake & Output 05/29/18 05/30/18 05/30/18 22:59 06:59 14:59 Intake Total 1310 400 Output Total 800 Balance 1310 -400 Lab Results Last 24 Hours: Laboratory Results - last 24 hr 05/29/18 05/29/18 05/29/18 Range/Units 11:38 17:32 20:36 WBC (5.0-10.0) 10^3/uL RBC (4.00-5.50) 10^6/uL Hgb (12.0-16.0) g/dL Hct (37.0-47.0) % MCV (82.0-94.0) fL MCH (27.0-32.0) pg MCHC (33.0-38.0) g/dL RDW Coeff of Roxanna (11.0-15.0) % Plt Count (150-400) 10^3/uL Neut % (Auto) (35-85) % Lymph % (Auto) (10-55) % Dickson % (Auto) (0-16) % Eos % (Auto) (0-5) % Baso % (Auto) (0-3) % Neut # (Auto) (1.80-7.00) 10^3/uL Lymph # (Auto) (1.00-4.80) 10^3/uL Dickson # (Auto) (0.00-0.80) 10^3/uL Eos # (Auto) (0.00-0.45) 10^3/uL Baso # (Auto) 10^3/uL Sodium (136-145) mEq/L Potassium (3.5-5.0) mEq/L Chloride (98-106) mEq/L Carbon Dioxide (21-32) mmol/L BUN (7-18) mg/dL Creatinine (0.6-1.0) mg/dL Est Cr Clr Drug Dosing mL/min Estimated GFR (MDRD) (>=60) mL/min Glucose (75-99) mg/dL POC Glucose 174 H 191 H 146 H (75-105) mg/dl Calcium (8.4-10.1) mg/dL Magnesium (1.8-2.4) mg/dL 05/30/18 05/30/18 05/30/18 Range/Units 00:49 07:10 07:10 WBC 7.8 (5.0-10.0) 10^3/uL RBC 3.28 L (4.00-5.50) 10^6/uL Hgb 10.0 L (12.0-16.0) g/dL Hct 32.0 L (37.0-47.0) % MCV 97.6 H (82.0-94.0) fL MCH 30.5 (27.0-32.0) pg MCHC 31.3 L (33.0-38.0) g/dL RDW Coeff of Roxanna 13.1 (11.0-15.0) % Plt Count 314 (150-400) 10^3/uL Neut % (Auto) 71.9 (35-85) % Lymph % (Auto) 17.7 (10-55) % Dickson % (Auto) 8.6 (0-16) % Eos % (Auto) 1.4 (0-5) % Baso % (Auto) 0.4 (0-3) % Neut # (Auto) 5.58 (1.80-7.00) 10^3/uL Lymph # (Auto) 1.37 (1.00-4.80) 10^3/uL Dickson # (Auto) 0.67 (0.00-0.80) 10^3/uL Eos # (Auto) 0.11 (0.00-0.45) 10^3/uL Baso # (Auto) 0.03 10^3/uL Sodium 140 (136-145) mEq/L Potassium 3.7 (3.5-5.0) mEq/L Chloride 105 (98-106) mEq/L Carbon Dioxide 32 (21-32) mmol/L BUN 26 H (7-18) mg/dL Creatinine 1.3 H (0.6-1.0) mg/dL Est Cr Clr Drug Dosing 25.02 mL/min Estimated GFR (MDRD) 39 L (>=60) mL/min Glucose 109 H D (75-99) mg/dL POC Glucose 139 H (75-105) mg/dl Calcium 9.7 (8.4-10.1) mg/dL Magnesium (1.8-2.4) mg/dL 05/30/18 05/30/18 05/30/18 Range/Units 07:10 07:44 11:49 WBC (5.0-10.0) 10^3/uL RBC (4.00-5.50) 10^6/uL Hgb (12.0-16.0) g/dL Hct (37.0-47.0) % MCV (82.0-94.0) fL MCH (27.0-32.0) pg MCHC (33.0-38.0) g/dL RDW Coeff of Roxanna (11.0-15.0) % Plt Count (150-400) 10^3/uL Neut % (Auto) (35-85) % Lymph % (Auto) (10-55) % Dickson % (Auto) (0-16) % Eos % (Auto) (0-5) % Baso % (Auto) (0-3) % Neut # (Auto) (1.80-7.00) 10^3/uL Lymph # (Auto) (1.00-4.80) 10^3/uL Dickson # (Auto) (0.00-0.80) 10^3/uL Eos # (Auto) (0.00-0.45) 10^3/uL Baso # (Auto) 10^3/uL Sodium (136-145) mEq/L Potassium (3.5-5.0) mEq/L Chloride (98-106) mEq/L Carbon Dioxide (21-32) mmol/L BUN (7-18) mg/dL Creatinine (0.6-1.0) mg/dL Est Cr Clr Drug Dosing mL/min Estimated GFR (MDRD) (>=60) mL/min Glucose (75-99) mg/dL POC Glucose 94 87 (75-105) mg/dl Calcium (8.4-10.1) mg/dL Magnesium 2.1 (1.8-2.4) mg/dL Med Orders - Current: Current Medications Acetaminophen (Tylenol) 650 mg PO Q4H PRN PRN Reason: Pain (Mild 1-3)/fever Last Admin: 05/29/18 12:58 Dose: 650 mg Hydrocodone Bitart/Acetaminophen ([place] 325-5 Mg) 1 - 2 tab PO Q4H PRN PRN Reason: PAIN Last Admin: 05/30/18 11:45 Dose: 1 tab Amitriptyline HCl (Elavil) 25 mg PO BEDTIME [facility] Last Admin: 05/29/18 20:02 Dose: 25 mg Aspirin (Aspirin) 325 mg PO DAILY [facility] Last Admin: 05/30/18 07:39 Dose: 325 mg Docusate Sodium (Colace) 100 mg PO BID PRN PRN Reason: Constipation Enoxaparin Sodium (Lovenox) 30 mg SUBCUT BEDTIME [facility] Last Admin: 05/29/18 20:02 Dose: 30 mg Ferrous Sulfate (Ferrous Sulfate) 324 mg PO DAILY [facility] Last Admin: 05/30/18 07:39 Dose: 324 mg Folic Acid (Folic Acid) 1 mg PO DAILY [facility] Last Admin: 05/30/18 07:40 Dose: 1 mg Insulin Aspart (Novolog) 0 unit SUBCUT WITHMEALSANDBED [facility]; Protocol Last Admin: 05/30/18 11:49 Dose: Not Given Insulin Detemir (Levemir) 16 unit SUBCUT BEDTIME [facility] Last Admin: 05/29/18 20:37 Dose: 16 units Lisinopril (Prinivil) 10 mg PO DAILY [facility] Magnesium Hydroxide (Milk Of Magnesia) 30 ml PO Q12H PRN PRN Reason: Constipation Metoprolol Succinate (Toprol Xl) 50 mg PO DAILY [facility] Last Admin: 05/30/18 07:41 Dose: 50 mg Ondansetron HCl (Zofran) 4 mg IV Q6H PRN PRN Reason: Nausea/Vomiting Polyethylene Glycol (Miralax) 17 gm PO DAILY PRN PRN Reason: Constipation Potassium Chloride (Klor-Con 10) 10 meq PO BIDMEALS [facility] Last Admin: 05/30/18 07:40 Dose: 10 meq Prednisone (Prednisone) 5 mg PO DAILY [facility] Last Admin: 05/30/18 07:42 Dose: 5 mg Temazepam (Restoril) 15 mg PO BEDTIME PRN PRN Reason: Sleep Discontinued Medications Amitriptyline HCl (Elavil) 75 mg PO BEDTIME [facility] Last Admin: 05/28/18 21:00 Dose: 75 mg Sodium Chloride (Normal Saline) 1,000 mls @ 125 mls/hr IV ASDIRECTED [facility] Last Admin: 05/28/18 14:04 Dose: 125 mls/hr Sodium Chloride (Normal Saline) 500 mls @ 999 mls/hr IV .BOLUS [facility] Potassium Chloride/Sodium Chloride (Normal Saline With 20 Meq Kcl) 1,000 mls @ 125 mls/hr IV ASDIRECTED [facility] Last Admin: 05/29/18 02:26 Dose: 125 mls/hr Magnesium Sulfate/Dextrose 2 (gm/ Premix) 200 mls @ 100 mls/hr IV ONETIME ONE Stop: 05/29/18 10:59 Last Admin: 05/29/18 09:57 Dose: 100 mls/hr Potassium Chloride 40 meq/ (Premix) 100 mls @ 25 mls/hr IV ONETIME ONE Stop: 05/29/18 12:56 Last Admin: 05/29/18 09:58 Dose: 25 mls/hr Insulin Glargine (Lantus Solostar) 18 units SUBCUT BEDTIME [facility] Last Admin: 05/28/18 21:35 Dose: Not Given Iopamidol (Isovue-300 (61%)) 100 ml IVPUSH ONETIME ONE Stop: 05/30/18 11:29 Last Admin: 05/30/18 11:36 Dose: 100 ml Lisinopril (Prinivil) 5 mg PO DAILY [facility] Last Admin: 05/30/18 07:40 Dose: 5 mg Lisinopril (Prinivil) 5 mg PO ONETIME ONE Stop: 05/30/18 08:00 Last Admin: 05/30/18 08:04 Dose: 5 mg Metformin HCl (Glucophage) 500 mg PO BIDMEALS [facility] Last Admin: 05/29/18 07:34 Dose: 500 mg Prednisone (Prednisone) 10 mg PO DAILY [facility] Last Admin: 05/29/18 07:32 Dose: 10 mg - Exam General: Alert, Oriented HEENT: Mucous Membr. Moist/[place] Neck: Supple Lungs: Clear to Auscultation, Normal Respiratory Effort Cardiovascular: Regular Rate, Regular Rhythm GI/Abdominal Exam: Normal Bowel Sounds, Non-Tender, Distended Extremities: Normal Inspection, No Pedal Edema Skin: Warm, Dry Neurological: No New Focal Deficit - Problem List & Annotations (1) Acute on chronic renal insufficiency SNOMED Code(s): 503641953 Code(s): N28.9 - DISORDER OF KIDNEY AND URETER, UNSPECIFIED; N18.9 - CHRONIC KIDNEY DISEASE, UNSPECIFIED Status: Chronic Priority: High Current Visit: Yes (2) Hypomagnesemia SNOMED Code(s): 886634474 Code(s): E83.42 - HYPOMAGNESEMIA Status: Acute Priority: High Current Visit: Yes (3) Hypokalemia SNOMED Code(s): 59980363 Code(s): E87.6 - HYPOKALEMIA Status: Acute Priority: High Current Visit : Yes (4) Diabetes mellitus SNOMED Code(s): 17183876 Code(s): E11.9 - TYPE 2 DIABETES MELLITUS WITHOUT COMPLICATIONS Status: Chronic Priority: Medium Current Visit: Yes Qualifiers: Diabetes mellitus type: type 2 Diabetes mellitus fdc insulin use: with fdc use Diabetes mellitus complication status: with kidney complications Diabetes mellitus complication detail: with chronic kidney disease Chronic kidney disease stage: stage 3 (moderate) Qualified Code(s): E11.22 - Type 2 diabetes mellitus with diabetic chronic kidney disease; N18.3 - Chronic kidney disease, stage 3 (moderate); Z79.4 - cardiac care unit nurse (current) use of insulin - Problem List Review Problem List Initiated/Reviewed/Updated: Yes - My Orders Last 24 Hours: My Active Orders 05/29/18 20:00 Amitriptyline [Elavil] 25 mg PO BEDTIME 05/30/18 08:00 predniSONE 5 mg PO DAILY 05/30/18 08:18 Abdomen Pelvis w Cont [CT] Routine Diagnostic Digital Lt [MY] Routine 05/31/18 08:00 Lisinopril [Prinivil] 10 mg PO DAILY - Assessment Assessment:: Acute on Chronic Renal Insufficiency Hypokalemia Hypomagnesemia - Plan Plan:: Patient is feeling better this am, still weak. Expresses concerns that she is still unsteady. Admits to abdominal bloating, pressure. Feels it causes difficulty with good air intake. She states it has been present now for quite some time but does not feel her meal intake should account for this, however, she does admit she has gained about 30#. Has been having issues with edema which is improved with the Metolazone, however, creatinine was increased to 2.0. Today, creatinine 1.6. Potassium is low at 3.3, magnesium 1.7. Will stop IV fluids. Give potassium 40 meq IV and 2 gm of IV magnesium today. Medication review done with Dr. Corona. Will stop her Catapress. Stop Metolazone. Decrease Amitryptiline, prednisone. Reevalute labs and add sed rate in am. Inappropriate for discharge. 05-12-2018 Patient alert, doing well today. Edema much improved. Does continue to have abdominal bloating, firm. Denies pain with palpation. Bowel sounds are active. Had good BM yesterday. She also states she has a lump in her left breast that she advised nurse of last night and marked the area. Has a small nonmobile nodule at 12 o'clock, just above the nipple. Labs today are improved Potassium increased to 3.7, magnesium 2.1. Creatinine 1.3. Blood pressure higher this am at 182/85. Obtain CT scan of abdomen and pelvis. Increase Lisinopril to 10 mg daily. Recheck labs in am.
[2018-05-30] MEDS: Amitriptyline 25 MG Tab PO SCH (19:31)
[2018-05-30] MEDS: Enoxaparin 30 MG/0.3 ML Syringe SUBCUT SCH (19:31)
[2018-05-30] MEDS: Insulin Detemir 100 Units/ML 3 ML Pen SUBCUT SCH (19:32)
[2018-05-31] MEDS: Acetaminophen/HYDROcodone 325-5 MG Tab PO PRN ×2 (00:09→23:46)
[2018-05-31] MEDS: Folic Acid 1 MG Tab PO SCH (07:54)
[2018-05-31] MEDS: Ferrous Sulfate 324 MG Tab.EC PO SCH (07:54)
[2018-05-31] MEDS: Aspirin 325 MG Tab PO SCH (07:54)
[2018-05-31] MEDS: Potassium Chloride 10 MEQ Tab.ER PO SCH ×2 (07:55→17:51)
[2018-05-31] MEDS: Insulin Aspart 100 Units/ML 3 ML Pen SUBCUT SCH ×4 (07:57→20:33)
[2018-05-31] MEDS: Lisinopril 10 MG Tab PO SCH (07:57)
[2018-05-31] MEDS: Metoprolol Succinate 25 MG Tab.ER PO SCH (07:58)
[2018-05-31] MEDS: predniSONE 5 MG Tab PO SCH (07:58)
[2018-05-31] MEDS ORDERED: Tuberculin, PPD 5 Units/0.1 ML 1 ML MDV IDERM ONE (08:00)
--- NOTE | 2018-05-31 14:02 | PCM.PN ---
- General Info Date of Service: 05/31/18 Admission Dx/Problem (Free Text): Acute on Chronic Renal Insufficiency Subjective Update: Acute on chronic renal insufficiency Weakness History of Falls Functional Status: Reports: Pain Controlled - Review of Systems General: Reports: No Symptoms HEENT: Reports: No Symptoms Pulmonary: Reports: No Symptoms Cardiovascular: Reports: No Symptoms Gastrointestinal: Reports: No Symptoms Musculoskeletal: Reports: Other (weakness) Neurological: Reports: Confusion, Weakness - Patient Data Vitals - Most Recent: Last Vital Signs Temp 98.5 F 05/31/18 11:48 Pulse 98 05/31/18 11:48 Resp 20 05/31/18 11:48 BP 154/94 H 05/31/18 11:48 Pulse Ox 98 05/31/18 11:48 Weight - Most Recent: 170 lb I&O - Last 24 Hours: Intake & Output 05/30/18 05/31/18 05/31/18 22:59 06:59 14:59 Intake Total 625 250 200 Output Total 2075 600 400 Balance -1450 -350 -200 Lab Results Last 24 Hours: Laboratory Results - last 24 hr 05/30/18 05/30/18 05/31/18 Range/Units 17:11 20:39 07:00 WBC 9.5 (5.0-10.0) 10^3/uL RBC 3.63 L (4.00-5.50) 10^6/uL Hgb 11.1 L (12.0-16.0) g/dL Hct 35.7 L (37.0-47.0) % MCV 98.3 H (82.0-94.0) fL MCH 30.6 (27.0-32.0) pg MCHC 31.1 L (33.0-38.0) g/dL RDW Coeff of Roxanna 13.4 (11.0-15.0) % Plt Count 344 (150-400) 10^3/uL Neut % (Auto) 70.1 (35-85) % Lymph % (Auto) 19.0 (10-55) % [place]bert % (Auto) 9.0 (0-16) % Eos % (Auto) 1.5 (0-5) % Baso % (Auto) 0.4 (0-3) % Neut # (Auto) 6.63 (1.80-7.00) 10^3/uL Lymph # (Auto) 1.80 (1.00-4.80) 10^3/uL [place] # (Auto) 0.85 H (0.00-0.80) 10^3/uL Eos # (Auto) 0.14 (0.00-0.45) 10^3/uL Baso # (Auto) 0.04 10^3/uL Sodium (136-145) mEq/L Potassium (3.5-5.0) mEq/L Chloride (98-106) mEq/L Carbon Dioxide (21-32) mmol/L BUN (7-18) mg/dL Creatinine (0.6-1.0) mg/dL Est Cr Clr Drug Dosing mL/min Estimated GFR (MDRD) (>=60) mL/min Glucose (75-99) mg/dL POC Glucose 138 H 147 H (75-105) mg/dl Calcium (8.4-10.1) mg/dL 05/31/18 05/31/18 Range/Units 07:00 07:46 WBC (5.0-10.0) 10^3/uL RBC (4.00-5.50) 10^6/uL Hgb (12.0-16.0) g/dL Hct (37.0-47.0) % MCV (82.0-94.0) fL MCH (27.0-32.0) pg MCHC (33.0-38.0) g/dL RDW Coeff of Roxanna (11.0-15.0) % Plt Count (150-400) 10^3/uL Neut % (Auto) (35-85) % Lymph % (Auto) (10-55) % [place]bert % (Auto) (0-16) % Eos % (Auto) (0-5) % Baso % (Auto) (0-3) % Neut # (Auto) (1.80-7.00) 10^3/uL Lymph # (Auto) (1.00-4.80) 10^3/uL [place]bert # (Auto) (0.00-0.80) 10^3/uL Eos # (Auto) (0.00-0.45) 10^3/uL Baso # (Auto) 10^3/uL Sodium 140 (136-145) mEq/L Potassium 3.6 (3.5-5.0) mEq/L Chloride 104 (98-106) mEq/L Carbon Dioxide 33 H (21-32) mmol/L BUN 15 (7-18) mg/dL Creatinine 1.1 H (0.6-1.0) mg/dL Est Cr Clr Drug Dosing 29.57 mL/min Estimated GFR (MDRD) 47 L (>=60) mL/min Glucose 88 (75-99) mg/dL POC Glucose 75 (75-105) mg/dl Calcium 9.6 (8.4-10.1) mg/dL Med Orders - Current: Current Medications Acetaminophen (Tylenol) 650 mg PO Q4H PRN PRN Reason: Pain (Mild 1-3)/fever Last Admin: 05/29/18 12:58 Dose: 650 mg Hydrocodone Bitart/Acetaminophen ([place] 325-5 Mg) 1 - 2 tab PO Q4H PRN PRN Reason: PAIN Last Admin: 05/31/18 00:09 Dose: 2 tab Amitriptyline HCl (Elavil) 25 mg PO BEDTIME [facility] Last Admin: 05/30/18 19:31 Dose: 25 mg Aspirin (Aspirin) 325 mg PO DAILY [facility] Last Admin: 05/31/18 07:54 Dose: 325 mg Docusate Sodium (Colace) 100 mg PO BID PRN PRN Reason: Constipation Enoxaparin Sodium (Lovenox) 30 mg SUBCUT BEDTIME [facility] Last Admin: 05/30/18 19:31 Dose: 30 mg Ferrous Sulfate (Ferrous Sulfate) 324 mg PO DAILY [facility] Last Admin: 05/31/18 07:54 Dose: 324 mg Folic Acid (Folic Acid) 1 mg PO DAILY [facility] Last Admin: 05/31/18 07:54 Dose: 1 mg Insulin Aspart (Novolog) 0 unit SUBCUT WITHMEALSANDBED [facility]; Protocol Last Admin: 05/31/18 12:09 Dose: Not Given Insulin Detemir (Levemir) 16 unit SUBCUT BEDTIME [facility] Last Admin: 05/30/18 19:32 Dose: 16 units Lisinopril (Prinivil) 10 mg PO DAILY [facility] Last Admin: 05/31/18 07:57 Dose: 10 mg Magnesium Hydroxide (Milk Of Magnesia) 30 ml PO Q12H PRN PRN Reason: Constipation Metoprolol Succinate (Toprol Xl) 50 mg PO DAILY [facility] Last Admin: 05/31/18 07:58 Dose: 50 mg Ondansetron HCl (Zofran) 4 mg IV Q6H PRN PRN Reason: Nausea/Vomiting Polyethylene Glycol (Miralax) 17 gm PO DAILY PRN PRN Reason: Constipation Potassium Chloride (Klor-Con 10) 10 meq PO BIDMEALS [facility] Last Admin: 05/31/18 07:55 Dose: 10 meq Prednisone (Prednisone) 5 mg PO DAILY [facility] Last Admin: 05/31/18 07:58 Dose: 5 mg Temazepam (Restoril) 15 mg PO BEDTIME PRN PRN Reason: Sleep Discontinued Medications Amitriptyline HCl (Elavil) 75 mg PO BEDTIME [facility] Last Admin: 05/28/18 21:00 Dose: 75 mg Sodium Chloride (Normal Saline) 1,000 mls @ 125 mls/hr IV ASDIRECTED [facility] Last Admin: 05/28/18 14:04 Dose: 125 mls/hr Sodium Chloride (Normal Saline) 500 mls @ 999 mls/hr IV .BOLUS [facility] Potassium Chloride/Sodium Chloride (Normal Saline With 20 Meq Kcl) 1,000 mls @ 125 mls/hr IV ASDIRECTED [facility] Last Admin: 05/29/18 02:26 Dose: 125 mls/hr Magnesium Sulfate/Dextrose 2 (gm/ Premix) 200 mls @ 100 mls/hr IV ONETIME ONE Stop: 05/29/18 10:59 Last Admin: 05/29/18 09:57 Dose: 100 mls/hr Potassium Chloride 40 meq/ (Premix) 100 mls @ 25 mls/hr IV ONETIME ONE Stop: 05/29/18 12:56 Last Admin: 05/29/18 09:58 Dose: 25 mls/hr Insulin Glargine (Lantus Solostar) 18 units SUBCUT BEDTIME [facility] Last Admin: 05/28/18 21:35 Dose: Not Given Iopamidol (Isovue-300 (61%)) 100 ml IVPUSH ONETIME ONE Stop: 05/30/18 11:29 Last Admin: 05/30/18 11:36 Dose: 100 ml Lisinopril (Prinivil) 5 mg PO DAILY [facility] Last Admin: 05/30/18 07:40 Dose: 5 mg Lisinopril (Prinivil) 5 mg PO ONETIME ONE Stop: 05/30/18 08:00 Last Admin: 05/30/18 08:04 Dose: 5 mg Metformin HCl (Glucophage) 500 mg PO BIDMEALS [facility] Last Admin: 05/29/18 07:34 Dose: 500 mg Prednisone (Prednisone) 10 mg PO DAILY [facility] Last Admin: 05/29/18 07:32 Dose: 10 mg Tuberculin PPD (Aplisol) 5 unit IDERM ONETIME ONE Stop: 05/31/18 08:01 Last Admin: 05/31/18 08:01 Dose: 5 unit - Exam General: Alert. No: Oriented Neck: Supple Lungs: Clear to Auscultation, Normal Respiratory Effort Cardiovascular: Regular Rate, Regular Rhythm GI/Abdominal Exam: Normal Bowel Sounds, Soft, Non-Tender, No Organomegaly Extremities: No Pedal Edema, Normal Capillary Refill Skin: Warm, Dry Psy/Mental Status: Alert, Normal Affect - Problem List & Annotations (1) Weakness SNOMED Code(s): 23399944 Code(s): R53.1 - WEAKNESS Status: Chronic Priority: High Current Visit : Yes (2) Hypertension SNOMED Code(s): 30464494 Code(s): I10 - ESSENTIAL (PRIMARY) HYPERTENSION Status: Chronic Priority : High Current Visit: No Qualifiers: Hypertension type: essential hypertension - Problem List Review Problem List Initiated/Reviewed/Updated: Yes - Assessment Assessment:: Acute on Chronic Renal Insufficiency Hypokalemia Hypomagnesemia - Plan Plan:: pt is confused this AM and still needs assistance to get up and down to the bathroom. Confused at time of exam to place and what she was doing. Denies ay pain or shortness of breathe Will swing tomorrow with plans of sending to [facility] the [facility]. BP has been running higher the last 24 hours. Will increase her Metoprolol at this time.
[2018-05-31] MEDS: Acetaminophen 325 MG Tab PO PRN (17:52)
[2018-05-31] MEDS ORDERED: Metoprolol Succinate 25 MG Tab.ER PO ONE (20:00)
[2018-05-31] MEDS: Enoxaparin 30 MG/0.3 ML Syringe SUBCUT SCH (20:18)
[2018-05-31] MEDS: Amitriptyline 25 MG Tab PO SCH (20:18)
[2018-05-31] MEDS ORDERED: Metoprolol Succinate 25 MG Tab.ER ONE (20:21)
[2018-05-31] MEDS: Insulin Detemir 100 Units/ML 3 ML Pen SUBCUT SCH (20:34)
[2018-06-01] MEDS ORDERED: Metoprolol Succinate 100 MG Tab.ER PO SCH (08:00)
[2018-06-01] MEDS: Ferrous Sulfate 324 MG Tab.EC PO SCH (08:18)
[2018-06-01] MEDS: Lisinopril 10 MG Tab PO SCH (08:18)
[2018-06-01 08:19] VITALS: BP 146/77
[2018-06-01] MEDS: predniSONE 5 MG Tab PO SCH (08:19)
[2018-06-01] MEDS: Folic Acid 1 MG Tab PO SCH (08:19)
[2018-06-01] MEDS: Insulin Aspart 100 Units/ML 3 ML Pen SUBCUT SCH (08:19)
[2018-06-01] MEDS: Potassium Chloride 10 MEQ Tab.ER PO SCH (08:19)
[2018-06-01] MEDS: Aspirin 325 MG Tab PO SCH (08:19)
--- NOTE | 2018-06-01 09:04 | PCM.DCSUM1 ---
Discharge Summary - Hospital Course HPI Initial Comments: Pt was admitted from ER for weakness, falls and dementia. She has been doing PT since being admitted to hospital for strengthening and balance. Brief History: This 87 year old female has been gradually getting weaker and more confusion at home. SHe has had several falls and balance getting worse. She fell again at home and was brought to ER and it was determined that she needs to go to correction. Diagnosis: Stroke: No - Discharge Data Discharge Date: 06/01/18 Discharge Disposition: DC/Tfer W/I Hosp To Swing 61 Condition: Stable - Discharge Diagnosis/Problem(s) (1) Weakness SNOMED Code(s): 11725698 ICD Code: R53.1 - WEAKNESS Status: Chronic Priority: High Current Visit : Yes (2) Hypertension SNOMED Code(s): 70264681 ICD Code: I10 - ESSENTIAL (PRIMARY) HYPERTENSION Status: Chronic Priority : High Current Visit: No Qualifiers: Hypertension type: essential hypertension - Patient Summary/Data Consults: Consultations 05/28/18 16:09 PT Evaluation and Treatment [CONS] Routine - Patient Instructions Diet: Regular Diet as Tolerated Activity: As Tolerated Driving: Do Not Drive Showering/Bathing: May Shower - Discharge Plan *PRESCRIPTION DRUG MONITORING PROGRAM REVIEWED*: Not Applicable *COPY OF PRESCRIPTION DRUG MONITORING REPORT IN PATIENT JAMEEL: Not Applicable Home Medications: Home Meds Aspirin 325 mg PO DAILY 05/02/14 [History] cloNIDine [Catapres] 0.1 mg PO BID 05/02/14 [History] Cholecalciferol (Vitamin D3) [Vitamin D3] 1,000 unit PO DAILY 12/24/15 [History] Amitriptyline HCl 75 mg PO BEDTIME 12/29/16 [History] Cyanocobalamin (Vitamin B-12) [Vitamin B-12] 1 ml IM Q30D 04/13/17 [History] Lisinopril 5 mg PO DAILY #0 04/16/17 [Rx] Metoprolol Succinate 50 mg PO DAILY #30 tab.er.24h 04/16/17 [Rx] Hydrocodone/Acetaminophen [Hydrocodon-Acetaminophen 5-325] 1 - 2 tab PO Q4HR PRN 06/29/17 [History] Torsemide [Demadex] 40 mg PO DAILY 06/29/17 [History] metFORMIN [Glucophage] 500 mg PO BID 06/29/17 [History] Potassium Chloride 10 meq PO BID #0 07/03/17 [Rx] Ferrous Sulfate 325 mg PO DAILY 01/03/18 [History] Folic Acid 1 mg PO DAILY 01/03/18 [History] Insulin Glarg,Human.Rec.Analog [Lantus] 16 units SUBCUT BEDTIME 01/03/18 [ History] Rosuvastatin [Crestor] 5 mg PO DAILY 01/03/18 [History] Pregabalin [Lyrica] 50 mg PO BID 05/28/18 [History] metOLazone [Zaroxolyn] 5 mg PO ASDIRECTED 05/28/18 [History] predniSONE [Prednisone] 10 mg PO DAILY 05/28/18 [History] Patient Handouts: Hypokalemia, Chronic Kidney Disease, Adult, Dehydration, Adult Forms: ED Department Discharge Referrals: PCP,None [Primary Care Provider] - - Discharge Summary/Plan Comment DC Time >30 min.: No Discharge Summary/Plan Comment: Transfer to swing bed for continued Physical therapy and plan correction placement. - Patient Data Vitals - Most Recent: Last Vital Signs Temp 97.1 F 06/01/18 04:00 Pulse 100 06/01/18 08:18 Resp 18 06/01/18 04:00 BP 146/77 H 06/01/18 08:18 Pulse Ox 99 05/31/18 23:40 Weight - Most Recent: 171 lb I&O - Last 24 hours: Intake & Output 05/31/18 06/01/18 06/01/18 22:59 06:59 14:59 Intake Total 120 200 Output Total 250 200 Balance -130 0 Lab Results - Last 24 hrs: Laboratory Results - last 24 hr 05/31/18 05/31/18 05/31/18 Range/Units 11:36 17:26 20:31 WBC (5.0-10.0) 10^3/uL RBC (4.00-5.50) 10^6/uL Hgb (12.0-16.0) g/dL Hct (37.0-47.0) % MCV (82.0-94.0) fL MCH (27.0-32.0) pg MCHC (33.0-38.0) g/dL RDW Coeff of Roxanna (11.0-15.0) % Plt Count (150-400) 10^3/uL Neut % (Auto) (35-85) % Lymph % (Auto) (10-55) % Gaines % (Auto) (0-16) % Eos % (Auto) (0-5) % Baso % (Auto) (0-3) % Neut # (Auto) (1.80-7.00) 10^3/uL Lymph # (Auto) (1.00-4.80) 10^3/uL Gaines # (Auto) (0.00-0.80) 10^3/uL Eos # (Auto) (0.00-0.45) 10^3/uL Baso # (Auto) 10^3/uL Sodium (136-145) mEq/L Potassium (3.5-5.0) mEq/L Chloride (98-106) mEq/L Carbon Dioxide (21-32) mmol/L BUN (7-18) mg/dL Creatinine (0.6-1.0) mg/dL Est Cr Clr Drug Dosing mL/min Estimated GFR (MDRD) (>=60) mL/min Glucose (75-99) mg/dL POC Glucose 113 H 103 219 H (75-105) mg/dl Calcium (8.4-10.1) mg/dL 06/01/18 06/01/18 06/01/18 Range/Units 06:55 06:55 08:08 WBC 8.5 (5.0-10.0) 10^3/uL RBC 3.55 L (4.00-5.50) 10^6/uL Hgb 10.7 L (12.0-16.0) g/dL Hct 34.4 L (37.0-47.0) % MCV 96.9 H (82.0-94.0) fL MCH 30.1 (27.0-32.0) pg MCHC 31.1 L (33.0-38.0) g/dL RDW Coeff of Roxanna 13.4 (11.0-15.0) % Plt Count 332 (150-400) 10^3/uL Neut % (Auto) 72.4 (35-85) % Lymph % (Auto) 17.0 (10-55) % Gaines % (Auto) 8.3 (0-16) % Eos % (Auto) 1.8 (0-5) % Baso % (Auto) 0.5 (0-3) % Neut # (Auto) 6.13 (1.80-7.00) 10^3/uL Lymph # (Auto) 1.44 (1.00-4.80) 10^3/uL Gaines # (Auto) 0.70 (0.00-0.80) 10^3/uL Eos # (Auto) 0.15 (0.00-0.45) 10^3/uL Baso # (Auto) 0.04 10^3/uL Sodium 140 (136-145) mEq/L Potassium 3.5 (3.5-5.0) mEq/L Chloride 105 (98-106) mEq/L Carbon Dioxide 30 (21-32) mmol/L BUN 15 (7-18) mg/dL Creatinine 1.1 H (0.6-1.0) mg/dL Est Cr Clr Drug Dosing 29.57 mL/min Estimated GFR (MDRD) 47 L (>=60) mL/min Glucose 87 (75-99) mg/dL POC Glucose 92 (75-105) mg/dl Calcium 9.2 (8.4-10.1) mg/dL Med Orders - Current: Current Medications Acetaminophen (Tylenol) 650 mg PO Q4H PRN PRN Reason: Pain (Mild 1-3)/fever Last Admin: 05/31/18 17:52 Dose: 650 mg Hydrocodone Bitart/Acetaminophen ([place] 325-5 Mg) 1 - 2 tab PO Q4H PRN PRN Reason: PAIN Last Admin: 05/31/18 23:46 Dose: 2 tab Amitriptyline HCl (Elavil) 25 mg PO BEDTIME [facility] Last Admin: 05/31/18 20:18 Dose: 25 mg Aspirin (Aspirin) 325 mg PO DAILY [facility] Last Admin: 06/01/18 08:19 Dose: 325 mg Docusate Sodium (Colace) 100 mg PO BID PRN PRN Reason: Constipation Enoxaparin Sodium (Lovenox) 30 mg SUBCUT BEDTIME [facility] Last Admin: 05/31/18 20:18 Dose: 30 mg Ferrous Sulfate (Ferrous Sulfate) 324 mg PO DAILY [facility] Last Admin: 06/01/18 08:18 Dose: 324 mg Folic Acid (Folic Acid) 1 mg PO DAILY [facility] Last Admin: 06/01/18 08:19 Dose: 1 mg Insulin Aspart (Novolog) 0 unit SUBCUT WITHMEALSANDBED [facility]; Protocol Last Admin: 06/01/18 08:19 Dose: Not Given Insulin Detemir (Levemir) 16 unit SUBCUT BEDTIME [facility] Last Admin: 05/31/18 20:34 Dose: 16 units Lisinopril (Prinivil) 10 mg PO DAILY [facility] Last Admin: 06/01/18 08:18 Dose: 10 mg Magnesium Hydroxide (Milk Of Magnesia) 30 ml PO Q12H PRN PRN Reason: Constipation Metoprolol Succinate (Toprol Xl) 100 mg PO DAILY [facility] Last Admin: 06/01/18 08:18 Dose: 100 mg Ondansetron HCl (Zofran) 4 mg IV Q6H PRN PRN Reason: Nausea/Vomiting Polyethylene Glycol (Miralax) 17 gm PO DAILY PRN PRN Reason: Constipation Potassium Chloride (Klor-Con 10) 10 meq PO BIDMEALS [facility] Last Admin: 06/01/18 08:19 Dose: 10 meq Prednisone (Prednisone) 5 mg PO DAILY [facility] Last Admin: 06/01/18 08:19 Dose: 5 mg Temazepam (Restoril) 15 mg PO BEDTIME PRN PRN Reason: Sleep Discontinued Medications Amitriptyline HCl (Elavil) 75 mg PO BEDTIME [facility] Last Admin: 05/28/18 21:00 Dose: 75 mg Sodium Chloride (Normal Saline) 1,000 mls @ 125 mls/hr IV ASDIRECTED [facility] Last Admin: 05/28/18 14:04 Dose: 125 mls/hr Sodium Chloride (Normal Saline) 500 mls @ 999 mls/hr IV .BOLUS [facility] Potassium Chloride/Sodium Chloride (Normal Saline With 20 Meq Kcl) 1,000 mls @ 125 mls/hr IV ASDIRECTED [facility] Last Admin: 05/29/18 02:26 Dose: 125 mls/hr Magnesium Sulfate/Dextrose 2 (gm/ Premix) 200 mls @ 100 mls/hr IV ONETIME ONE Stop: 05/29/18 10:59 Last Admin: 05/29/18 09:57 Dose: 100 mls/hr Potassium Chloride 40 meq/ (Premix) 100 mls @ 25 mls/hr IV ONETIME ONE Stop: 05/29/18 12:56 Last Admin: 05/29/18 09:58 Dose: 25 mls/hr Insulin Glargine (Lantus Solostar) 18 units SUBCUT BEDTIME [facility] Last Admin: 05/28/18 21:35 Dose: Not Given Iopamidol (Isovue-300 (61%)) 100 ml IVPUSH ONETIME ONE Stop: 05/30/18 11:29 Last Admin: 05/30/18 11:36 Dose: 100 ml Lisinopril (Prinivil) 5 mg PO DAILY [facility] Last Admin: 05/30/18 07:40 Dose: 5 mg Lisinopril (Prinivil) 5 mg PO ONETIME ONE Stop: 05/30/18 08:00 Last Admin: 05/30/18 08:04 Dose: 5 mg Metformin HCl (Glucophage) 500 mg PO BIDMEALS [facility] Last Admin: 05/29/18 07:34 Dose: 500 mg Metoprolol Succinate (Toprol Xl) 50 mg PO DAILY [facility] Last Admin: 05/31/18 07:58 Dose: 50 mg Metoprolol Succinate (Toprol Xl) 50 mg PO BEDTIME ONE Stop: 05/31/18 20:01 Last Admin: 05/31/18 20:18 Dose: 50 mg Metoprolol Succinate (Toprol Xl) Confirm Administered Dose 25 mg .ROUTE .STK- MED ONE Stop: 05/31/18 20:22 Last Admin: 05/31/18 20:24 Dose: Not Given Prednisone (Prednisone) 10 mg PO DAILY [facility] Last Admin: 05/29/18 07:32 Dose: 10 mg Tuberculin PPD (Aplisol) 5 unit IDERM ONETIME ONE Stop: 05/31/18 08:01 Last Admin: 05/31/18 08:01 Dose: 5 unit
== END 2018-06-01 09:39 | disposition swing bed (61) | DRG 700 ==
LOC: CC.ED 12:54 → CC.MS 14:17 → UNDOADMIN 14:17 → CC.MS 15:54
PROVIDERS: ADMIT Nurse Practitioner Family; ATTEND Family Medicine
DX: N28.9 Disorder of kidney and ureter, unspecified (principal); E11.22 Type 2 diabetes mellitus with diabetic chronic kidney disease; I12.9 Hypertensive chronic kidney disease with stage 1 through stage 4 chronic kidney disease, or unspecified chronic kidney disease; E86.0 Dehydration; N18.3 Chronic kidney disease, stage 3 (moderate); E87.6 Hypokalemia; I95.9 Hypotension, unspecified; E78.5 Hyperlipidemia, unspecified; G89.29 Other chronic pain; M54.9 Dorsalgia, unspecified; D64.9 Anemia, unspecified; Z79.899 Other long term (current) drug therapy; T50.2X5A Adverse effect of carbonic-anhydrase inhibitors, benzothiadiazides and other diuretics, initial encounter; R53.83 Other fatigue; S01.01XA Laceration without foreign body of scalp, initial encounter; W19.XXXA Unspecified fall, initial encounter; E78.00 Pure hypercholesterolemia, unspecified; I65.22 Occlusion and stenosis of left carotid artery; G47.30 Sleep apnea, unspecified; K21.9 Gastro-esophageal reflux disease without esophagitis; M06.9 Rheumatoid arthritis, unspecified; F41.9 Anxiety disorder, unspecified; F03.90 Unspecified dementia, unspecified severity, without behavioral disturbance, psychotic disturbance, mood disturbance, and anxiety; R53.1 Weakness; E83.42 Hypomagnesemia; R14.0 Abdominal distension (gaseous); N63.22 Unspecified lump in the left breast, upper inner quadrant; R60.0 Localized edema; G47.00 Insomnia, unspecified; M19.90 Unspecified osteoarthritis, unspecified site; H91.90 Unspecified hearing loss, unspecified ear; M81.0 Age-related osteoporosis without current pathological fracture; Z90.49 Acquired absence of other specified parts of digestive tract; Z90.710 Acquired absence of both cervix and uterus; Z91.81 History of falling; Z87.440 Personal history of urinary (tract) infections; Z88.6 Allergy status to analgesic agent; Z88.5 Allergy status to narcotic agent; M62.838 Other muscle spasm; R35.1 Nocturia; L57.0 Actinic keratosis; R00.0 Tachycardia, unspecified; R26.2 Difficulty in walking, not elsewhere classified; R60.9 Edema, unspecified; Z88.8 Allergy status to other drugs, medicaments and biological substances; Z79.82 Long term (current) use of aspirin; Z79.4 Long term (current) use of insulin; Z79.52 Long term (current) use of systemic steroids; Z86.73 Personal history of transient ischemic attack (TIA), and cerebral infarction without residual deficits; Z85.3 Personal history of malignant neoplasm of breast
CPT/HCPCS: 36415; 74177; 80048; 81001; 82962; 83735; 85025; 85651; 86140; 86580; 97110-GP; 97162-GP; 99285; A9270-GY; J1650; J1815-GY; J3475; J3480; J7030; Q9967

== ENCOUNTER 2018-06-01 09:14 | Inpatient (IN) | payer MEDICARE, BC ==
[2018-06-01] MEDS ORDERED: Temazepam 15 MG Cap PO PRN (09:55)
[2018-06-01] MEDS ORDERED: Polyethylene Glycol 3350 Powder 17 GM Packet PO PRN (09:55)
[2018-06-01] MEDS ORDERED: Magnesium Hydroxide 400 MG/5 ML Susp 30 ML Cup PO PRN (09:55)
[2018-06-01] MEDS ORDERED: Acetaminophen/HYDROcodone 325-5 MG Tab PO PRN (09:55)
[2018-06-01] MEDS ORDERED: Ondansetron 4 MG/2 ML SDV IV PRN (09:55)
[2018-06-01] MEDS ORDERED: Docusate Sodium 100 MG Cap PO PRN (09:55)
[2018-06-01] MEDS: Insulin Aspart 100 Units/ML 3 ML Pen SUBCUT SCH ×3 (11:44→21:14)
[2018-06-01] MEDS: Potassium Chloride 10 MEQ Tab.ER PO SCH (19:12)
[2018-06-01] MEDS ORDERED: Ibuprofen 200 MG Tab PO PRN (19:52)
[2018-06-01] MEDS: Amitriptyline 25 MG Tab PO SCH (20:06)
[2018-06-01] MEDS: Enoxaparin 30 MG/0.3 ML Syringe SUBCUT SCH (20:06)
[2018-06-01] MEDS: Insulin Detemir 100 Units/ML 3 ML Pen SUBCUT SCH (20:09)
[2018-06-01] MEDS: Acetaminophen 325 MG Tab PO PRN (22:29)
[2018-06-02] MEDS: Ferrous Sulfate 324 MG Tab.EC PO SCH (07:44)
[2018-06-02] MEDS: Aspirin 325 MG Tab.EC PO SCH (07:44)
[2018-06-02] MEDS: predniSONE 5 MG Tab PO SCH (07:45)
[2018-06-02] MEDS: Folic Acid 1 MG Tab PO SCH (07:45)
[2018-06-02] MEDS: Potassium Chloride 10 MEQ Tab.ER PO SCH ×2 (07:45→17:37)
[2018-06-02] MEDS: Lisinopril 10 MG Tab PO SCH (07:46)
[2018-06-02] MEDS: Metoprolol Succinate 100 MG Tab.ER PO SCH (07:46)
[2018-06-02] MEDS: Insulin Aspart 100 Units/ML 3 ML Pen SUBCUT SCH ×4 (07:47→20:35)
[2018-06-02] MEDS: Amitriptyline 25 MG Tab PO SCH (19:34)
[2018-06-02] MEDS: Enoxaparin 30 MG/0.3 ML Syringe SUBCUT SCH (19:34)
[2018-06-02] MEDS: Insulin Detemir 100 Units/ML 3 ML Pen SUBCUT SCH (19:35)
[2018-06-03] MEDS: Aspirin 325 MG Tab.EC PO SCH (07:19)
[2018-06-03] MEDS: Ferrous Sulfate 324 MG Tab.EC PO SCH (07:19)
[2018-06-03] MEDS: Potassium Chloride 10 MEQ Tab.ER PO SCH (07:19)
[2018-06-03] MEDS: Folic Acid 1 MG Tab PO SCH (07:19)
[2018-06-03] MEDS: predniSONE 5 MG Tab PO SCH (07:20)
[2018-06-03] MEDS: Metoprolol Succinate 100 MG Tab.ER PO SCH (07:20)
[2018-06-03] MEDS: Lisinopril 10 MG Tab PO SCH (07:20)
[2018-06-03] MEDS: Insulin Aspart 100 Units/ML 3 ML Pen SUBCUT SCH ×2 (07:22→11:45)
[2018-06-03 07:23] VITALS: BP 178/88
[2018-06-03] MEDS: Acetaminophen 325 MG Tab PO PRN (07:42)
--- NOTE | 2018-06-03 11:48 | PCM.DCSUM1 ---
Discharge Summary - Hospital Course Free Text/Narrative:: Analia is an 87 yr old female who was initially admitted to the hospital after being brought into the ER via EMS after multiple falls. [facility]. She has been doing okay while in the hospital. She denies any concerns today. States she is feeling well. Diagnosis: Stroke: No - Discharge Data Discharge Date: 06/03/18 Discharge Disposition: DC/Tfer to [facility] Condition: Good - Discharge Diagnosis/Problem(s) (1) Confusion SNOMED Code(s): 632479223 ICD Code: R41.0 - DISORIENTATION, UNSPECIFIED Status: Acute Current Visit : Yes (2) Weakness SNOMED Code(s): 27447436 ICD Code: R53.1 - WEAKNESS Status: Chronic Priority: High Current Visit : No - Patient Summary/Data Consults: Consultations 06/01/18 09:55 PT Evaluation and Treatment [CONS] Routine 06/01/18 11:47 Consult to Cooking Appliance Repair Technician [CONS] Routine Recommended Follow-up Testing/Procedures: Sed Rate and BMP in 2 weeks. - Patient Instructions Diet: Diabetic Diet Activity: As Tolerated (wish assistive device (walker, etc.. ).) Driving: Do Not Drive Showering/Bathing: May Shower - Discharge Plan *PRESCRIPTION DRUG MONITORING PROGRAM REVIEWED*: No *COPY OF PRESCRIPTION DRUG MONITORING REPORT IN PATIENT JAMEEL: No Prescriptions/Med Rec: Amitriptyline [Elavil] 25 mg PO BEDTIME #14 tablet Lisinopril [Prinivil] 10 mg PO DAILY #30 tablet Metoprolol Succinate [Toprol XL 100mg] 100 mg PO DAILY #30 tab.er predniSONE 5 mg PO DAILY #30 tablet Home Medications: Home Meds Aspirin 325 mg PO DAILY 05/02/14 [History] Cholecalciferol (Vitamin D3) [Vitamin D3] 1,000 unit PO DAILY 12/24/15 [History] Cyanocobalamin (Vitamin B-12) [Vitamin B-12] 1 ml IM Q30D 04/13/17 [History] Hydrocodone/Acetaminophen [Hydrocodon-Acetaminophen 5-325] 1 - 2 tab PO Q4HR PRN 06/29/17 [History] Torsemide [Demadex] 40 mg PO DAILY 06/29/17 [History] Potassium Chloride 10 meq PO BID #0 07/03/17 [Rx] Ferrous Sulfate 325 mg PO DAILY 01/03/18 [History] Folic Acid 1 mg PO DAILY 01/03/18 [History] Insulin Glarg,Human.Rec.Analog [Lantus] 16 units SUBCUT BEDTIME 01/03/18 [ History] Acetaminophen [Tylenol] 650 mg PO Q4H PRN tablet 06/03/18 [Rx] Amitriptyline [Elavil] 25 mg PO BEDTIME #14 tablet 06/03/18 [Rx] Lisinopril [Prinivil] 10 mg PO DAILY #30 tablet 06/03/18 [Rx] Metoprolol Succinate [Toprol XL 100mg] 100 mg PO DAILY #30 tab.er 06/03/18 [Rx] Polyethylene Glycol 3350 [MiraLAX] 17 gm PO DAILY PRN packet 06/03/18 [Rx] predniSONE 5 mg PO DAILY #30 tablet 06/03/18 [Rx] - Discharge Summary/Plan Comment DC Time >30 min.: Yes - General Info Functional Status: Reports: Pain Controlled, Tolerating Diet, Ambulating. Denies: New Symptoms - Review of Systems General: Reports: No Symptoms HEENT: Reports: Other (dry eyes) Pulmonary: Reports: No Symptoms Cardiovascular: Reports: No Symptoms Gastrointestinal: Reports: No Symptoms Genitourinary: Reports: No Symptoms Neurological: Reports: Confusion, Weakness - Patient Data Vitals - Most Recent: Last Vital Signs Temp 99.5 F 06/03/18 09:00 Pulse 113 H 06/03/18 07:34 Resp 20 06/03/18 07:34 BP 178/88 H 06/03/18 07:34 Pulse Ox 97 06/03/18 07:34 Weight - Most Recent: 171 lb I&O - Last 24 hours: Intake & Output 06/02/18 06/03/18 06/03/18 22:59 06:59 14:59 Intake Total 400 200 280 Output Total 550 300 300 Balance -150 -100 -20 Lab Results - Last 24 hrs: Laboratory Results - last 24 hr 06/02/18 06/02/18 06/02/18 Range/Units 11:42 17:19 19:33 POC Glucose 103 141 H 151 H (75-105) mg/dl 06/03/18 Range/Units 07:22 POC Glucose 90 (75-105) mg/dl Med Orders - Current: Current Medications Acetaminophen (Tylenol) 650 mg PO Q4H PRN PRN Reason: Pain (Mild 1-3)/fever Last Admin: 06/03/18 07:42 Dose: 650 mg Hydrocodone Bitart/Acetaminophen ([place] 325-5 Mg) 1 - 2 tab PO Q4H PRN PRN Reason: PAIN Last Admin: 06/02/18 01:38 Dose: 2 tab Amitriptyline HCl (Elavil) 25 mg PO BEDTIME [facility] Last Admin: 06/02/18 19:34 Dose: 25 mg Aspirin (Ecotrin) 325 mg PO DAILY [facility] Last Admin: 06/03/18 07:19 Dose: 325 mg Docusate Sodium (Colace) 100 mg PO BID PRN PRN Reason: Constipation Enoxaparin Sodium (Lovenox) 30 mg SUBCUT BEDTIME [facility] Last Admin: 06/02/18 19:34 Dose: 30 mg Ferrous Sulfate (Ferrous Sulfate) 324 mg PO DAILY [facility] Last Admin: 06/03/18 07:19 Dose: 324 mg Folic Acid (Folic Acid) 1 mg PO DAILY [facility] Last Admin: 06/03/18 07:19 Dose: 1 mg Ibuprofen (Motrin) 400 mg PO Q6H PRN PRN Reason: Headache Last Admin: 06/01/18 20:04 Dose: 400 mg Insulin Aspart (Novolog) 0 unit SUBCUT WITHMEALSANDBED [facility]; Protocol Last Admin: 06/03/18 07:22 Dose: Not Given Insulin Detemir (Levemir) 16 unit SUBCUT BEDTIME [facility] Last Admin: 06/02/18 19:35 Dose: 16 unit Lisinopril (Prinivil) 10 mg PO DAILY [facility] Last Admin: 06/03/18 07:20 Dose: 10 mg Magnesium Hydroxide (Milk Of Magnesia) 30 ml PO Q12H PRN PRN Reason: Constipation Metoprolol Succinate (Toprol Xl) 100 mg PO DAILY [facility] Last Admin: 06/03/18 07:20 Dose: 100 mg Ondansetron HCl (Zofran) 4 mg IV Q6H PRN PRN Reason: Nausea/Vomiting Polyethylene Glycol (Miralax) 17 gm PO DAILY PRN PRN Reason: Constipation Potassium Chloride (Klor-Con 10) 10 meq PO BIDMEALS [facility] Last Admin: 06/03/18 07:19 Dose: 10 meq Prednisone (Prednisone) 5 mg PO DAILY [facility] Last Admin: 06/03/18 07:20 Dose: 5 mg Temazepam (Restoril) 15 mg PO BEDTIME PRN PRN Reason: Sleep - Exam General: Reports: Alert, Oriented HEENT: Reports: Other (dry eyes) Neck: Reports: Supple Lungs: Reports: Clear to Auscultation, Normal Respiratory Effort Cardiovascular: Reports: Regular Rate, Regular Rhythm, No Murmurs GI/Abdominal Exam: Normal Bowel Sounds, Soft, Non-Tender Extremities: Normal Inspection, Non-Tender, No Pedal Edema Skin: Reports: Warm, Dry, Intact Neurological: Reports: No New Focal Deficit Psy/Mental Status: Reports: Alert, Normal Affect, Normal Mood *Q Meaningful Use (DIS) - VTE *Q VTE Mechanical Contraindications *Q: At Risk for Falls
== END 2018-06-03 12:50 | DRG 948 ==
LOC: CC.MS 09:14 → UNDOADMIN 09:50
PROVIDERS: ADMIT Physician Assistant Medical; ATTEND Family Medicine
DX: R53.1 Weakness (principal); R41.0 Disorientation, unspecified; E78.5 Hyperlipidemia, unspecified; G89.29 Other chronic pain; M54.9 Dorsalgia, unspecified; D64.9 Anemia, unspecified; R53.83 Other fatigue; H91.90 Unspecified hearing loss, unspecified ear; E78.00 Pure hypercholesterolemia, unspecified; I65.22 Occlusion and stenosis of left carotid artery; G47.30 Sleep apnea, unspecified; K21.9 Gastro-esophageal reflux disease without esophagitis; M19.90 Unspecified osteoarthritis, unspecified site; F41.9 Anxiety disorder, unspecified; G47.00 Insomnia, unspecified; L57.0 Actinic keratosis; E86.0 Dehydration; E11.22 Type 2 diabetes mellitus with diabetic chronic kidney disease; I95.9 Hypotension, unspecified; I12.9 Hypertensive chronic kidney disease with stage 1 through stage 4 chronic kidney disease, or unspecified chronic kidney disease; N18.3 Chronic kidney disease, stage 3 (moderate); E87.6 Hypokalemia; R29.6 Repeated falls; Z79.82 Long term (current) use of aspirin; Z79.4 Long term (current) use of insulin; Z79.52 Long term (current) use of systemic steroids; Z91.81 History of falling; Z88.6 Allergy status to analgesic agent; Z85.3 Personal history of malignant neoplasm of breast; Z86.73 Personal history of transient ischemic attack (TIA), and cerebral infarction without residual deficits; Z90.49 Acquired absence of other specified parts of digestive tract; Z87.440 Personal history of urinary (tract) infections; Z90.710 Acquired absence of both cervix and uterus; Z88.5 Allergy status to narcotic agent; Z88.8 Allergy status to other drugs, medicaments and biological substances; Z79.899 Other long term (current) drug therapy
CPT/HCPCS: 36415; 70450; 76642-LT; 77065-LT; 80048; 81001; 82962; 85025; 86140; 97110-GP; A9270-GY; J1650

== ENCOUNTER 2019-01-28 21:07 | Emergency (ER) | payer MEDICARE, BC, MEDICAID ==
[2019-01-28 21:11] VITALS: BP 154/70
--- NOTE | 2019-01-28 22:12 | EDM.PDOC ---
ED HPI GENERAL MEDICAL PROBLEM - General Chief Complaint: Lower Extremity Injury/Pain Stated Complaint: leg pain Time Seen by Provider: 01/28/19 21:38 Source of Information: Reports: Patient History Limitations: Reports: No Limitations - History of Present Illness INITIAL COMMENTS - FREE TEXT/NARRATIVE: Analia is an 88 year old female who presents to the ED with c/o pain to the anterolateral aspect of her mid right jean. She reports she has chronic pain of both her legs but this worse pain has been there for the past 3-4 days. Reports the sharp pains come and go and are not always constant. Reports she was told she should get it checked to make sure she doesn't have a blood clot, so she got scared. Denies any swelling, redness or pain to posterior calf. Denies any chest pain, shortness of breath, N/V/D. Did recently have lab work with her physical. Has a chronically elevated Sed Rate. Has history of polymyalgia rheumatic as well as diabetic neuropathy. Is currently on prednisone and gabapentin for this. She reports she has been taking 1-2 Milton every 4 hours and this seems to help the pain but she is worried she is going to run out before a prescription is due again due to the worsening pain she is having. She denies any injury to the area. Does not have any bruising or erythema to the area. No deformity or abnormality noted to the area. Duration: Intermittent Location: Reports: Lower Extremity, Right Quality: Reports: Ache, Sharp Treatments DOLLYMAN: Reports: Other Medication(s) Right Lower Leg Pain Score (Numeric/FACES): 7 - Related Data Allergies Allergy/AdvReac Type Severity Reaction Status Date / Time meperidine [From Demerol] Allergy Cannot Verified 01/28/19 21:16 Remember nabumetone Allergy Cannot Verified 01/28/19 21:16 Remember oxycodone HCl [From Percocet] Allergy Hallucinati Verified 01/28/19 21:16 ons Home Meds: Home Meds Aspirin 325 mg PO DAILY 05/02/14 [History] Cholecalciferol (Vitamin D3) [Vitamin D3] 1,000 unit PO DAILY 12/24/15 [History] Cyanocobalamin (Vitamin B-12) [Vitamin B-12] 1 ml IM Q30D 04/13/17 [History] Hydrocodone/Acetaminophen [Hydrocodon-Acetaminophen 5-325] 1 - 2 tab PO Q4HR PRN 06/29/17 [History] Torsemide [Demadex] 40 mg PO DAILY 06/29/17 [History] Potassium Chloride 10 meq PO BID #0 07/03/17 [Rx] Ferrous Sulfate 325 mg PO DAILY 01/03/18 [History] Folic Acid 1 mg PO DAILY 01/03/18 [History] Insulin Glarg,Human.Rec.Analog [Lantus] 16 units SUBCUT BEDTIME 01/03/18 [ History] Acetaminophen [Tylenol] 650 mg PO Q4H PRN tablet 06/03/18 [Rx] Amitriptyline [Elavil] 25 mg PO BEDTIME #14 tablet 06/03/18 [Rx] Lisinopril [Prinivil] 10 mg PO DAILY #30 tablet 06/03/18 [Rx] Metoprolol Succinate [Toprol XL 100mg] 100 mg PO DAILY #30 tab.er 06/03/18 [Rx] Polyethylene Glycol 3350 [MiraLAX] 17 gm PO DAILY PRN packet 06/03/18 [Rx] Gabapentin [Neurontin] 900 mg PO TID 01/28/19 [History] Hydrocodone/Acetaminophen [[place] 5-325 Tablet] 1 - 2 each PO Q4HR PRN #30 tablet 01/28/19 [Rx] predniSONE 30 mg PO DAILY 01/28/19 [History] Past Medical History HEENT History: Reports: Hard of Hearing Cardiovascular History: Reports: High Cholesterol, Hypertension, Other (See Below) Other Cardiovascular History: asymptomatic left cardiac stenosis, tachycardia Respiratory History: Reports: Sleep Apnea Gastrointestinal History: Reports: GERD Genitourinary History: Reports: None, UTI, Recurrent Other Genitourinary History: nocturia TELEPHONE INSTALLER History: Reports: None, Musculoskeletal History: Reports: Arthritis, Back Pain, Chronic, Fracture, Osteoporosis, RA, Other (See Below) Other Musculoskeletal History: Muscle spasms, arthralgia Neurological History: Reports: Neuropathy, Diabetic, TIA, Other (See Below) Other Neuro History: daughter states pt has had a few ministrokes, on 01/03/18 states she has never had a mini stroke Psychiatric History: Reports: Anxiety, Other (See Below) Other Psychiatric History: Insomnia Endocrine/Metabolic History: Reports: Diabetes, Type II Hematologic History: Reports: None Immunologic History: Reports: None Oncologic (Cancer) History: Reports: Breast Dermatologic History: Reports: Other (See Below) Other Dermatologic History: Actinic keratosis - Past Surgical History HEENT Surgical History: Reports: Cataract Surgery GI Surgical History: Reports: Appendectomy, Cholecystectomy, Hernia, Inguinal Female Surgical History: Reports: Hysterectomy, Oophorectomy, Other (See Below) Neurological Surgical History: Reports: None Musculoskeletal Surgical History: Reports: Other (See Below) Social & Family History - Family History Family Medical History: Noncontributory - Tobacco Use Smoking Status *Q: Never Smoker - Caffeine Use Caffeine Use: Reports: Coffee - Recreational Drug Use Recreational Drug Use: No - Living Situation & Occupation Living situation: Reports: , Alone Review of Systems - Review of Systems Review Of Systems: ROS reveals no pertinent complaints other than HPI. ED EXAM, GENERAL - Physical Exam Exam: See Below Exam Limited By: No Limitations General Appearance: Alert, WD/WN, No Apparent Distress Head: Atraumatic, Normocephalic Neck: Normal Inspection, Supple, Non-Tender, Full Range of Motion Respiratory/Chest: No Respiratory Distress, Lungs Clear, Normal Breath Sounds, No Accessory Muscle Use, Chest Non-Tender Cardiovascular: Normal Peripheral Pulses, Regular Rate, Rhythm, No Edema, No Gallop, No JVD, No Murmur, No Rub Peripheral Pulses: 1+: Posterior Tibial (L), Posterior Tibial (R), 2+: Dorsalis Pedis (L), Dorsalis Pedis (R) GI/Abdominal: Normal Bowel Sounds, Soft, Non-Tender, No Organomegaly, No Distention, No Abnormal Bruit, No Mass Extremities: Normal Inspection, Normal Range of Motion, No Pedal Edema, Normal Capillary Refill, Leg Pain (tenderness to anterolateral aspect of right mid jean , no abnormality noted on exam). No: Joint Swelling, Jad's Sign, Increased Warmth, Redness Neurological: Alert, Oriented, CN II-XII Intact, Normal Cognition, Normal Gait ( limp on both sides, antalgic gait), Normal Reflexes, No Motor/Sensory Deficits Psychiatric: Normal Affect, Normal Mood Skin Exam: Warm, Dry, Intact, Normal Color, No Rash Course - Vital Signs Last Recorded V/S: Last Vital Signs Temp 96.9 F 01/28/19 21:08 Pulse 86 01/28/19 21:08 Resp 18 01/28/19 21:08 BP 154/70 H 01/28/19 21:08 Pulse Ox 100 01/28/19 21:08 - Re-Assessments/Exams Free Text/Narrative Re-Assessment/Exam: Discussed with patient that exam reveals no abnormalities at this time. Reassured her that my suspicion for a DVT is low given area of pain and negative Homans sign. Discussed with patient that she has multiple comorbidities which could be cause of pain in her legs, non of which are emergent. She does report she has pretty significant neuropathy in her bilateral lower legs. Departure - Departure Time of Disposition: 22:08 Disposition: Home, Self-Care 01 Condition: Good Clinical Impression: Leg pain, right, Polymyalgia rheumatica Diabetic neuropathy Qualifiers: Diabetes mellitus type: type 2 Diabetes mellitus complication detail: diabetic polyneuropathy Qualified Code(s): E11.42 - Type 2 diabetes mellitus with diabetic polyneuropathy - Discharge Information *PRESCRIPTION DRUG MONITORING PROGRAM REVIEWED*: Not Applicable *COPY OF PRESCRIPTION DRUG MONITORING REPORT IN PATIENT JAMEEL: Not Applicable Prescriptions: Hydrocodone/Acetaminophen [[place] 5-325 Tablet] 1 - 2 each PO Q4HR PRN #30 tablet PRN Reason: Pain Instructions: Peripheral Neuropathy Referrals: Manuel Corona MD [Primary Care Provider] - Forms: ED Department Discharge Additional Instructions: Increase to 1-2 [place] every 4-6 hours as needed while pain is more severe Continue Gabapentin as prescribed Heat to affected area as needed for comfort Weight bearing as tolerated Follow up with PCP next week as scheduled to further discuss, sooner if symptoms worsen or do not improve
== END 2019-01-28 22:25 | disposition home or self-care (01) ==
LOC: CC.ED 21:07
DX: M35.3 Polymyalgia rheumatica (principal); E11.42 Type 2 diabetes mellitus with diabetic polyneuropathy; I10 Essential (primary) hypertension; Z88.8 Allergy status to other drugs, medicaments and biological substances; Z79.82 Long term (current) use of aspirin; Z79.899 Other long term (current) drug therapy
CPT/HCPCS: 99283

== ENCOUNTER 2019-02-18 20:33 | Emergency (ER) | payer MEDICARE, BC, MEDICAID ==
[2019-02-18 20:38] VITALS: BP 159/86
--- NOTE | 2019-02-18 21:08 | EDM.PDOC ---
ED HPI GENERAL MEDICAL PROBLEM - General Chief Complaint: Lower Extremity Injury/Pain Stated Complaint: BILATERAL LEG PAIN Time Seen by Provider: 02/18/19 20:42 Source of Information: Reports: Patient History Limitations: Reports: No Limitations - History of Present Illness INITIAL COMMENTS - FREE TEXT/NARRATIVE: States that she has been having increase in pain to her legs bilaterally. Has noted some increase in swelling to lower legs. Is on gabapentin TID and she states that it doesn't help as much. Is on chronic prednisone due to her myalgias. Denies any redness or open areas on her legs. Legs have been warm. No coughing, chest pain, or SOB with it. States that her leg pain is worse and it doesn't go away with the pain meds all the time. States that she does elevate them during the day. States that she wants to be admitted for a few days. Onset: Gradual Duration: Chronic Location: Reports: Lower Extremity, Left, Lower Extremity, Right Quality: Reports: Throbbing Right Upper Arm Pain Score (Numeric/FACES): 9 - Related Data Allergies Allergy/AdvReac Type Severity Reaction Status Date / Time meperidine [From Demerol] Allergy Cannot Verified 02/18/19 20:38 Remember nabumetone Allergy Cannot Verified 02/18/19 20:38 Remember oxycodone HCl [From Percocet] Allergy Hallucinati Verified 02/18/19 20:38 ons Home Meds: Home Meds Aspirin 325 mg PO DAILY 05/02/14 [History] Cholecalciferol (Vitamin D3) [Vitamin D3] 1,000 unit PO DAILY 12/24/15 [History] Cyanocobalamin (Vitamin B-12) [Vitamin B-12] 1 ml IM Q30D 04/13/17 [History] Torsemide [Demadex] 40 mg PO DAILY 06/29/17 [History] Potassium Chloride 10 meq PO BID #0 07/03/17 [Rx] Ferrous Sulfate 325 mg PO DAILY 01/03/18 [History] Folic Acid 1 mg PO DAILY 01/03/18 [History] Insulin Glarg,Human.Rec.Analog [Lantus] 22 units SUBCUT BEDTIME 01/03/18 [ History] Acetaminophen [Tylenol] 650 mg PO Q4H PRN tablet 06/03/18 [Rx] Amitriptyline [Elavil] 25 mg PO BEDTIME #14 tablet 06/03/18 [Rx] Lisinopril [Prinivil] 10 mg PO DAILY #30 tablet 06/03/18 [Rx] Metoprolol Succinate [Toprol XL 100mg] 100 mg PO DAILY #30 tab.er 06/03/18 [Rx] Polyethylene Glycol 3350 [MiraLAX] 17 gm PO DAILY PRN packet 06/03/18 [Rx] Gabapentin [Neurontin] 900 mg PO TID 01/28/19 [History] Hydrocodone/Acetaminophen [[place] 5-325 Tablet] 1 - 2 each PO Q4HR PRN #30 tablet 01/28/19 [Rx] predniSONE 20 mg PO DAILY 01/28/19 [History] Past Medical History HEENT History: Reports: Hard of Hearing Cardiovascular History: Reports: High Cholesterol, Hypertension, Other (See Below) Other Cardiovascular History: asymptomatic left cardiac stenosis, tachycardia Respiratory History: Reports: Sleep Apnea Gastrointestinal History: Reports: GERD Genitourinary History: Reports: None, UTI, Recurrent Other Genitourinary History: nocturia 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, Musculoskeletal History: Reports: Arthritis, Back Pain, Chronic, Fracture, Osteoporosis, RA, Other (See Below) Other Musculoskeletal History: Muscle spasms, arthralgia Neurological History: Reports: Neuropathy, Diabetic, TIA, Other (See Below) Other Neuro History: daughter states pt has had a few ministrokes, on 01/03/18 states she has never had a mini stroke Psychiatric History: Reports: Anxiety, Other (See Below) Other Psychiatric History: Insomnia Endocrine/Metabolic History: Reports: Diabetes, Type II Hematologic History: Reports: None Immunologic History: Reports: None Oncologic (Cancer) History: Reports: Breast Dermatologic History: Reports: Other (See Below) Other Dermatologic History: Actinic keratosis - Past Surgical History HEENT Surgical History: Reports: Cataract Surgery GI Surgical History: Reports: Appendectomy, Cholecystectomy, Hernia, Inguinal Female Surgical History: Reports: Hysterectomy, Oophorectomy, Other (See Below) Neurological Surgical History: Reports: None Musculoskeletal Surgical History: Reports: Other (See Below) Social & Family History - Family History Family Medical History: Noncontributory - Tobacco Use Smoking Status *Q: Never Smoker - Caffeine Use Caffeine Use: Reports: None - Recreational Drug Use Recreational Drug Use: No - Living Situation & Occupation Living situation: Reports: , Alone Review of Systems - Review of Systems Review Of Systems: See Below Constitutional: Denies: Chills, Fever Eyes: Reports: No Symptoms Ears: Reports: No Symptoms Nose: Reports: No Symptoms Mouth/Throat: Reports: No Symptoms Respiratory: Reports: No Symptoms Cardiovascular: Reports: No Symptoms GI/Abdominal: Reports: No Symptoms Musculoskeletal: Reports: Leg Pain, Foot Pain Skin: Denies: Rash, Wound Neurological: Denies: Paresthesia ED EXAM, GENERAL - Physical Exam Exam: See Below Exam Limited By: No Limitations General Appearance: Alert, WD/WN, No Apparent Distress Ears: Normal External Exam, Normal Canal, Normal TMs Nose: Normal Inspection Throat/Mouth: Normal Inspection, Normal Oropharynx, No Airway Compromise Head: Atraumatic, Normocephalic Neck: Normal Inspection, Supple, Non-Tender, Full Range of Motion Respiratory/Chest: No Respiratory Distress, Lungs Clear, Normal Breath Sounds Cardiovascular: Regular Rate, Rhythm, Other (edema noted to lower legs bilaterally. Noted from the knees down to feet. Good pulses noted. Feet are warm to touch.) GI/Abdominal: Normal Bowel Sounds, Soft, Non-Tender Back Exam: Normal Inspection, Full Range of Motion Extremities: Normal Inspection, Normal Range of Motion, Non-Tender, Normal Capillary Refill Neurological: Alert, Oriented Psychiatric: Normal Affect Skin Exam: Warm, Dry, Intact Course - Vital Signs Last Recorded V/S: Last Vital Signs Temp 97.7 F 02/18/19 20:33 Pulse 98 02/18/19 20:33 Resp 18 02/18/19 20:33 BP 159/86 H 02/18/19 20:33 Pulse Ox 98 02/18/19 20:33 - Orders/Labs/Meds Labs: Laboratory Tests 02/18/19 02/18/19 02/18/19 Range/Units 20:53 21:08 21:08 WBC 9.0 (5.0-10.0) 10^3/uL RBC 3.97 L (4.00-5.50) 10^6/uL Hgb 11.9 L (12.0-16.0) g/dL Hct 38.3 (37.0-47.0) % MCV 96.5 H (82.0-94.0) fL MCH 30.0 (27.0-32.0) pg MCHC 31.1 L (33.0-38.0) g/dL RDW Coeff of Roxanna 13.0 (11.0-15.0) % Plt Count 327 (150-400) 10^3/uL Neut % (Auto) 74.0 (35-85) % Lymph % (Auto) 13.7 (10-55) % [place] % (Auto) 8.8 (0-16) % Eos % (Auto) 3.1 (0-5) % Baso % (Auto) 0.4 (0-3) % Neut # (Auto) 6.63 (1.80-7.00) 10^3/uL Lymph # (Auto) 1.23 (1.00-4.80) 10^3/uL [place] # (Auto) 0.79 (0.00-0.80) 10^3/uL Eos # (Auto) 0.28 (0.00-0.45) 10^3/uL Baso # (Auto) 0.04 10^3/uL Sodium 141 (136-145) mEq/L Potassium 4.1 (3.5-5.0) mEq/L Chloride 105 (98-106) mEq/L Carbon Dioxide 29 (21-32) mmol/L BUN 20 H (7-18) mg/dL Creatinine 1.4 H (0.6-1.0) mg/dL Est Cr Clr Drug Dosing 21.77 mL/min Estimated GFR (MDRD) 36 L (>=60) mL/min Glucose 159 H (75-99) mg/dL Calcium 9.3 (8.4-10.1) mg/dL C-Reactive Protein 2.2 H (0.2-0.8) mg/dL NT-Pro-B Natriuret Pep 211 (0-1000) pg/mL Urine Color Yellow (YELLOW) Urine Appearance Clear (CLEAR) Urine pH 6.5 (4.5-8.0) Ur Specific [place] 1.015 (1.003-1.020) Urine Protein Negative (NEGATIVE) mg/dL Urine Glucose (UA) 100 H (NEGATIVE) mg/dL Urine Ketones Negative (NEGATIVE) mg/dL Urine Occult Blood Negative (NEGATIVE) Urine Nitrite Negative (NEGATIVE) Urine Bilirubin Negative (NEGATIVE) Urine Urobilinogen 0.2 (0.2-1.0) EU/dL Ur Leukocyte Esterase Negative (NEGATIVE) Urine RBC Not seen (0-5) /HPF Urine WBC 0-5 (0-5) /HPF Ur Squamous Epith Cells Occasional H (NOT SEEN) /HPF Urine Bacteria Occasional H (NOT SEEN) /HPF - Re-Assessments/Exams Free Text/Narrative Re-Assessment/Exam: 02/18/19 21:48 In to discuss results of labs and urine test. Reassured that she doesn't have heart failure so increasing demadex is not going to help her at all. GUY pruett- Elevate legs more during the day. Making sure they are above the heart. Departure - Departure Time of Disposition: 21:50 Disposition: Home, Self-Care 01 Condition: Fair Clinical Impression: Pain Diabetic neuropathy Qualifiers: Diabetes mellitus type: type 2 Diabetes mellitus complication detail: diabetic polyneuropathy Qualified Code(s): E11.42 - Type 2 diabetes mellitus with diabetic polyneuropathy - Discharge Information *PRESCRIPTION DRUG MONITORING PROGRAM REVIEWED*: Not Applicable *COPY OF PRESCRIPTION DRUG MONITORING REPORT IN PATIENT JAMEEL: Not Applicable Referrals: Manuel Corona MD [Primary Care Provider] - Forms: ED Department Discharge Additional Instructions: GUY pruett Elevate legs as much as possible Follow up with Dr. Corona if swelling does not go down or if pain does not improve when swelling decreases - Problem List & Annotations (1) Diabetic neuropathy SNOMED Code(s): 613524206, 202843181 Code(s): E11.40 - TYPE 2 DIABETES MELLITUS WITH DIABETIC NEUROPATHY, UNSP Status: Acute Priority: High Current Visit: Yes Qualifiers: Diabetes mellitus type: type 2 Diabetes mellitus complication detail: diabetic polyneuropathy Qualified Code(s): E11.42 - Type 2 diabetes mellitus with diabetic polyneuropathy (2) Pain SNOMED Code(s): 68124648 Code(s): R52 - PAIN, UNSPECIFIED Status: Chronic Priority: High Current Visit: Yes - Problem List Review Problem List Initiated/Reviewed/Updated: Yes
== END 2019-02-18 21:50 | disposition home or self-care (01) ==
LOC: CC.ED 20:33
DX: E11.42 Type 2 diabetes mellitus with diabetic polyneuropathy (principal); I10 Essential (primary) hypertension; Z88.8 Allergy status to other drugs, medicaments and biological substances; Z79.82 Long term (current) use of aspirin; Z79.899 Other long term (current) drug therapy
CPT/HCPCS: 36415; 80048; 81001; 83880; 85025; 86140; 99283

== ENCOUNTER 2019-09-19 15:11 | Emergency (ER) | payer MEDICARE, BC ==
[2019-09-19 15:19] VITALS: BP 149/89; PULSE 94
[2019-09-19 16:34] LABS: CHLORIDE,CL 103 mEq/L (98-106); SODIUM,NA 142 mEq/L (136-145)
--- NOTE | 2019-09-19 16:34 | EDM.PDOC ---
ED HPI GENERAL MEDICAL PROBLEM - General Chief Complaint: General Stated Complaint: ? UTI Time Seen by Provider: 09/19/19 15:52 Source of Information: Reports: Patient History Limitations: Reports: No Limitations - History of Present Illness INITIAL COMMENTS - FREE TEXT/NARRATIVE: This patient is an 88 year old female that presents to the ER. The patient reports for four days just not feeling well. She reports that its hard to explain, but she overall does not feel very well. She reports that she feels generally weak all over. She reports that she has been incontinent of urine, but over time this has become a little worse and wearing depends for a while. The patient report that she also has a frontal headache, dizziness, shortness of breath a little more than usual. The patient is alert and oriented. Onset Date: 09/15/19 Duration: Day(s): (4) Severity: Moderate Improves with: Reports: None Worsens with: Reports: None Associated Symptoms: Reports: Headaches, Malaise, Shortness of Breath, Weakness. Denies: Confusion, Chest Pain, Cough, cough w sputum, Diaphoresis, Fever/Chills, Loss of Appetite, Nausea/Vomiting, Rash, Seizure, Syncope - Related Data Allergies Allergy/AdvReac Type Severity Reaction Status Date / Time meperidine [From Demerol] Allergy Cannot Verified 09/19/19 15:13 Remember nabumetone Allergy Cannot Verified 09/19/19 15:13 Remember oxycodone HCl [From Percocet] Allergy Hallucinati Verified 09/19/19 15:13 ons Home Meds: Home Meds Aspirin 325 mg PO DAILY 05/02/14 [History] Torsemide [Demadex] 20 mg PO DAILY 06/29/17 [History] Potassium Chloride 10 meq PO BID #0 07/03/17 [Rx] Ferrous Sulfate 325 mg PO DAILY 01/03/18 [History] Folic Acid 1 mg PO DAILY 01/03/18 [History] Insulin Glarg,Human.Rec.Analog [Lantus] 22 units SUBCUT BEDTIME 01/03/18 [ History] Lisinopril [Prinivil] 10 mg PO DAILY #30 tablet 06/03/18 [Rx] Metoprolol Succinate [Toprol XL 100mg] 100 mg PO DAILY #30 tab.er 06/03/18 [Rx] Gabapentin [Neurontin] 300 mg PO TID 01/28/19 [History] predniSONE 5 mg PO BID 01/28/19 [History] Acetaminophen [Tylenol Extra Strength] 1,000 mg PO BID 09/19/19 [History] Acetaminophen [Tylenol Extra Strength] 500 - 1,000 mg PO Q4H PRN 09/19/19 [ History] Denosumab [Prolia] 60 mg SUBCUT Q180D 09/19/19 [History] Hydrocodone/Acetaminophen [[place] 5-325 Tablet] 1 each PO Q4HR PRN 09/19/19 [ History] Meloxicam 15 mg PO DAILY 09/19/19 [History] Zolpidem Tartrate [Ambien] 5 mg PO BEDTIME 09/19/19 [History] amLODIPine Besylate [Amlodipine Besylate] 5 mg PO DAILY 09/19/19 [History] Past Medical History HEENT History: Reports: Hard of Hearing Cardiovascular History: Reports: High Cholesterol, Hypertension, Other (See Below) Other Cardiovascular History: asymptomatic left cardiac stenosis, tachycardia Respiratory History: Reports: Sleep Apnea Gastrointestinal History: Reports: GERD Genitourinary History: Reports: None, UTI, Recurrent Other Genitourinary History: nocturia 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, Musculoskeletal History: Reports: Arthritis, Back Pain, Chronic, Fracture, Osteoporosis, RA, Other (See Below) Other Musculoskeletal History: Muscle spasms, arthralgia Neurological History: Reports: Neuropathy, Diabetic, TIA, Other (See Below) Other Neuro History: daughter states pt has had a few ministrokes, on 01/03/18 states she has never had a mini stroke Psychiatric History: Reports: Anxiety, Other (See Below) Other Psychiatric History: Insomnia Endocrine/Metabolic History: Reports: Diabetes, Type II Hematologic History: Reports: None Immunologic History: Reports: None Oncologic (Cancer) History: Reports: Breast Dermatologic History: Reports: Other (See Below) Other Dermatologic History: Actinic keratosis - Past Surgical History HEENT Surgical History: Reports: Cataract Surgery GI Surgical History: Reports: Appendectomy, Cholecystectomy, Hernia, Inguinal Female Surgical History: Reports: Hysterectomy, Oophorectomy, Other (See Below) Neurological Surgical History: Reports: None Musculoskeletal Surgical History: Reports: Other (See Below) Social & Family History - Family History Family Medical History: Noncontributory - Tobacco Use Smoking Status *Q: Never Smoker - Caffeine Use Caffeine Use: Reports: None - Recreational Drug Use Recreational Drug Use: No - Living Situation & Occupation Living situation: Reports: , Alone ED ROS GENERAL - Review of Systems Review Of Systems: See Below Constitutional: Reports: Malaise, Weakness, Fatigue HEENT: Reports: No Symptoms Respiratory: Reports: Shortness of Breath. Denies: Wheezing, Pleuritic Chest Pain, Cough, Sputum Cardiovascular: Denies: Chest Pain, Edema, Palpitations, Syncope Endocrine: Reports: No Symptoms GI/Abdominal: Reports: No Symptoms. Denies: Abdominal Pain, Diarrhea, Nausea, Vomiting : Reports: Incontinence, Urgency. Denies: Dysuria, Flank Pain, Frequency, Pain Musculoskeletal: Reports: No Symptoms Skin: Reports: No Symptoms Neurological: Reports: Dizziness, Headache, Weakness (general). Denies: Numbness, Syncope, Tingling, Trouble Speaking, Difficulty Walking Psychiatric: Reports: No Symptoms Hematologic/Lymphatic: Reports: No Symptoms Immunologic: Reports: No Symptoms ED EXAM, GENERAL - Physical Exam Exam: See Below Exam Limited By: No Limitations General Appearance: Alert, WD/WN, No Apparent Distress Eye Exam: Bilateral Eye: EOMI, Normal Inspection, PERRL Ears: Normal External Exam, Normal Canal, Hearing Grossly Normal, Normal TMs Ear Exam: Bilateral Ear: Auricle Normal, Canal Normal, TM normal Nose: Normal Inspection, Normal Mucosa, No Blood Throat/Mouth: Normal Inspection, Normal Lips, Normal Teeth, Normal Gums, Normal Oropharynx, Normal Voice, No Airway Compromise Head: Atraumatic, Normocephalic Neck: Normal Inspection, Supple, Non-Tender, Full Range of Motion Respiratory/Chest: No Respiratory Distress, Lungs Clear, Normal Breath Sounds, No Accessory Muscle Use Cardiovascular: Normal Peripheral Pulses, Regular Rate, Rhythm, No Edema, No Gallop, No JVD, No Murmur, No Rub Peripheral Pulses: 2+: Radial (L), Radial (R), Posterior Tibial (L), Posterior Tibial (R), Dorsalis Pedis (L), Dorsalis Pedis (R) GI/Abdominal: Normal Bowel Sounds, Soft, Non-Tender, No Organomegaly, No Distention, No Abnormal Bruit, No Mass, Pelvis Stable (Female) Exam: Deferred Rectal (Female) Exam: Deferred Back Exam: Normal Inspection, Full Range of Motion. No: CVA Tenderness (L), CVA Tenderness (R) Extremities: Normal Inspection, Normal Range of Motion, Non-Tender, No Pedal Edema, Normal Capillary Refill Neurological: Alert, Oriented, Normal Cognition, Normal Gait, No Motor/Sensory Deficits, Other (When I asked patient to close her eyes, I touched her at certain locations and asked her to identify the location. She was unable to identify shoulders bilaterally. As she could not remember the name for it. Also , patient was unable to recall words when told them for recall.) Psychiatric: Normal Affect, Normal Mood Skin Exam: Warm, Dry, Intact, Normal Color, No Rash Lymphatic: No Adenopathy Course - Vital Signs Last Recorded V/S: Last Vital Signs Temp 99.1 F 09/19/19 15:15 Pulse 94 09/19/19 15:15 Resp 20 09/19/19 15:15 BP 149/89 H 09/19/19 15:15 Pulse Ox 96 09/19/19 15:15 - Orders/Labs/Meds Orders: Active Orders 24 hr Category Date Time Status Chest 2V [CR] Stat Exams 09/19/19 16:10 Taken Head wo Cont [CT] Stat Exams 09/19/19 16:10 Taken CULTURE BLOOD [BC] Stat Lab 09/19/19 16:40 Received CULTURE BLOOD [BC] Stat Lab 09/19/19 16:40 Received Blood Culture x2 Reflex Set [OM.PC] Stat Oth 09/19/19 15:23 Ordered Labs: Laboratory Tests 09/19/19 09/19/19 09/19/19 Range/Units 15:23 15:23 15:23 WBC 8.0 (5.0-10.0) 10^3/uL RBC 4.17 (4.00-5.50) 10^6/uL Hgb 12.3 (12.0-16.0) g/dL Hct 39.3 (37.0-47.0) % MCV 94.2 H (82.0-94.0) fL MCH 29.5 (27.0-32.0) pg MCHC 31.3 L (33.0-38.0) g/dL RDW Coeff of Roxanna 13.2 (11.0-15.0) % Plt Count 312 (150-400) 10^3/uL Neut % (Auto) 69.3 (35-85) % Lymph % (Auto) 18.0 (10-55) % [place] % (Auto) 9.0 (0-16) % Eos % (Auto) 3.3 (0-5) % Baso % (Auto) 0.4 (0-3) % Neut # (Auto) 5.54 (1.80-7.00) 10^3/uL Lymph # (Auto) 1.44 (1.00-4.80) 10^3/uL [place] # (Auto) 0.72 (0.00-0.80) 10^3/uL Eos # (Auto) 0.26 (0.00-0.45) 10^3/uL Baso # (Auto) 0.03 10^3/uL Sodium 142 (136-145) mEq/L Potassium 3.7 (3.5-5.0) mEq/L Chloride 103 (98-106) mEq/L Carbon Dioxide 26 (21-32) mmol/L BUN 15 (7-18) mg/dL Creatinine 0.9 (0.6-1.0) mg/dL Est Cr Clr Drug Dosing 33.86 mL/min Estimated GFR (MDRD) 59 L (>=60) mL/min Glucose 92 (75-99) mg/dL Lactic Acid (0.4-2.0) mmol/L Calcium 9.1 (8.4-10.1) mg/dL Total Bilirubin 0.5 (0.0-1.0) mg/dL AST 18 (15-37) U/L ALT 30 (12-78) U/L Alkaline Phosphatase 116 (46-116) U/L Creatine Kinase 31 (21-215) U/L Troponin I < 0.017 (0.00-0.06) ng/mL C-Reactive Protein 2.2 H (0.2-0.8) mg/dL NT-Pro-B Natriuret Pep 79 (0-1000) pg/mL Total Protein 7.4 (6.4-8.2) g/dL Albumin 3.4 (3.4-5.0) g/dL Urine Color Yellow (YELLOW) Urine Appearance Clear (CLEAR) Urine pH 7.0 (4.5-8.0) Ur Specific [place] 1.015 (1.003-1.020) Urine Protein Negative (NEGATIVE) mg/dL Urine Glucose (UA) Negative (NEGATIVE) mg/dL Urine Ketones Negative (NEGATIVE) mg/dL Urine Occult Blood Negative (NEGATIVE) Urine Nitrite Negative (NEGATIVE) Urine Bilirubin Negative (NEGATIVE) Urine Urobilinogen 0.2 (0.2-1.0) EU/dL Ur Leukocyte Esterase Negative (NEGATIVE) 09/19/19 Range/Units 15:23 WBC (5.0-10.0) 10^3/uL RBC (4.00-5.50) 10^6/uL Hgb (12.0-16.0) g/dL Hct (37.0-47.0) % MCV (82.0-94.0) fL MCH (27.0-32.0) pg MCHC (33.0-38.0) g/dL RDW Coeff of Roxanna (11.0-15.0) % Plt Count (150-400) 10^3/uL Neut % (Auto) (35-85) % Lymph % (Auto) (10-55) % [place] % (Auto) (0-16) % Eos % (Auto) (0-5) % Baso % (Auto) (0-3) % Neut # (Auto) (1.80-7.00) 10^3/uL Lymph # (Auto) (1.00-4.80) 10^3/uL [place] # (Auto) (0.00-0.80) 10^3/uL Eos # (Auto) (0.00-0.45) 10^3/uL Baso # (Auto) 10^3/uL Sodium (136-145) mEq/L Potassium (3.5-5.0) mEq/L Chloride (98-106) mEq/L Carbon Dioxide (21-32) mmol/L BUN (7-18) mg/dL Creatinine (0.6-1.0) mg/dL Est Cr Clr Drug Dosing mL/min Estimated GFR (MDRD) (>=60) mL/min Glucose (75-99) mg/dL Lactic Acid 0.8 (0.4-2.0) mmol/L Calcium (8.4-10.1) mg/dL Total Bilirubin (0.0-1.0) mg/dL AST (15-37) U/L ALT (12-78) U/L Alkaline Phosphatase (46-116) U/L Creatine Kinase (21-215) U/L Troponin I (0.00-0.06) ng/mL C-Reactive Protein (0.2-0.8) mg/dL NT-Pro-B Natriuret Pep (0-1000) pg/mL Total Protein (6.4-8.2) g/dL Albumin (3.4-5.0) g/dL Urine Color (YELLOW) Urine Appearance (CLEAR) Urine pH (4.5-8.0) Ur Specific [place] (1.003-1.020) Urine Protein (NEGATIVE) mg/dL Urine Glucose (UA) (NEGATIVE) mg/dL Urine Ketones (NEGATIVE) mg/dL Urine Occult Blood (NEGATIVE) Urine Nitrite (NEGATIVE) Urine Bilirubin (NEGATIVE) Urine Urobilinogen (0.2-1.0) EU/dL Ur Leukocyte Esterase (NEGATIVE) - Re-Assessments/Exams Free Text/Narrative Re-Assessment/Exam: 09/19/19 19:37 The patient currently has no complaints. She has been talking to nursing staff and carrying on conversation. All labs, imaging is unremarkable. Patient family is coming to get the patient. The patient is alert and oriented, has no neuro deficits. She has no CP. No current dyspnea. Will discharge patient, educated patient when to return. Patient will followup with PCP Saturday. Departure - Departure Time of Disposition: 19:42 Disposition: Home, Self-Care 01 Condition: Fair Clinical Impression: General weakness - Discharge Information *PRESCRIPTION DRUG MONITORING PROGRAM REVIEWED*: Not Applicable *COPY OF PRESCRIPTION DRUG MONITORING REPORT IN PATIENT JAMEEL: Not Applicable Instructions: Weakness, [id number] Referrals: Manuel Corona MD [Primary Care Provider] - Forms: ED Department Discharge Additional Instructions: Followup with primary care provider Return to the ER worsening of condition or any emergent concerns such as chest pain, shortness of breath, passing out, fever, or any other concerns Increase fluids at home Tylenol for pain or fever - My Orders Last 24 Hours: My Active Orders 09/19/19 15:23 Blood Culture x2 Reflex Set [OM.PC] Stat 09/19/19 16:10 Chest 2V [CR] Stat Head wo Cont [CT] Stat 09/19/19 16:40 CULTURE BLOOD [BC] Stat CULTURE BLOOD [BC] Stat - Assessment/Plan Last 24 Hours: My Active Orders 09/19/19 15:23 Blood Culture x2 Reflex Set [OM.PC] Stat 09/19/19 16:10 Chest 2V [CR] Stat Head wo Cont [CT] Stat 09/19/19 16:40 CULTURE BLOOD [BC] Stat CULTURE BLOOD [BC] Stat Plan: PLEASE SEE RN NOTE FOR PFSH.
== END 2019-09-19 20:12 | disposition home or self-care (01) ==
LOC: CC.ED 15:11
DX: R53.1 Weakness (principal); I10 Essential (primary) hypertension; E11.40 Type 2 diabetes mellitus with diabetic neuropathy, unspecified; Z88.5 Allergy status to narcotic agent; Z88.6 Allergy status to analgesic agent; Z79.82 Long term (current) use of aspirin; Z79.899 Other long term (current) drug therapy; Z86.73 Personal history of transient ischemic attack (TIA), and cerebral infarction without residual deficits; Z79.4 Long term (current) use of insulin
CPT/HCPCS: 36415; 70450; 71046; 80053; 81003; 82550; 83605; 83880; 84484; 85025; 86140; 87040; 93005; 93010; 99284; 99285-25

== ENCOUNTER 2020-07-05 12:13 | Emergency (ER) | payer MEDICARE, BC ==
[2020-07-05 13:01] LABS: CHLORIDE,CL 105 mEq/L (98-106); SODIUM,NA 140 mEq/L (136-145)
[2020-07-05 13:02] VITALS: BP 141/77; PULSE 82
[2020-07-05 13:15] LABS: PTT,PARTIAL THROMBOPLSTIN TIME 22.6 SEC (23.2-32.3)
--- NOTE | 2020-07-05 15:26 | EDM.PDOC ---
ED HPI GENERAL MEDICAL PROBLEM - General Chief Complaint: Syncope Stated Complaint: FELL/HEAD Time Seen by Provider: 07/05/20 13:00 Source of Information: Reports: Patient History Limitations: Reports: No Limitations - History of Present Illness INITIAL COMMENTS - FREE TEXT/NARRATIVE: Analia is an 89 yo female who prsents to the ED via private vehicle after falling at home. She states that she was sitting on a stool at home and woke up on the floor. Admits she started to feel lightheaded and next thing she knew she was on the floor. The stool had tipped over and was on the floor as well. She had her cell phone by her and call for help as she wasn't able to get herself up. She admits she does use a walker at home and does have some chronic weakness in her legs. States she thinks she hit her head and was concerned so she decided to come in to be checked over. Currently states she did have a bump on her head but that is now gone. States she is feeling well and feels if everything comes back okay she can go home. Denies any blood thinners. States she hasn't had any visual changes, headaches, chest pain, palpitations or any concerning symptoms. - Related Data Allergies Allergy/AdvReac Type Severity Reaction Status Date / Time meperidine [From Demerol] Allergy Cannot Verified 07/05/20 12:23 Remember nabumetone Allergy Cannot Verified 07/05/20 12:23 Remember oxycodone HCl [From Percocet] Allergy Hallucinati Verified 07/05/20 12:23 ons Home Meds: Home Meds Torsemide [Demadex] 20 mg PO DAILY 06/29/17 [History] Potassium Chloride 10 meq PO BID #0 07/03/17 [Rx] Ferrous Sulfate 325 mg PO DAILY 01/03/18 [History] Insulin Glarg,Human.Rec.Analog [Lantus] 10 units SUBCUT BEDTIME 01/03/18 [History] Metoprolol Succinate [Toprol XL 100mg] 100 mg PO DAILY #30 tab.er 06/03/18 [Rx] lisinopriL [Prinivil] 10 mg PO DAILY #30 tablet 06/03/18 [Rx] Gabapentin [Neurontin] 300 mg PO TID 01/28/19 [History] predniSONE 5 mg PO BID 01/28/19 [History] Acetaminophen [Tylenol Extra Strength] 500 - 1,000 mg PO Q4H PRN 09/19/19 [History] Denosumab [Prolia] 60 mg SUBCUT Q180D 09/19/19 [History] Meloxicam 15 mg PO DAILY 09/19/19 [History] Zolpidem Tartrate [Ambien] 5 mg PO BEDTIME 09/19/19 [History] amLODIPine Besylate [Amlodipine Besylate] 5 mg PO DAILY 09/19/19 [History] Hydrocodone/Acetaminophen [Hydrocodone-Acetamin 5-325 mg] 1 - 2 tab PO Q4H 07/05/20 [History] Past Medical History HEENT History: Reports: Hard of Hearing Cardiovascular History: Reports: High Cholesterol, Hypertension, Other (See Below) Other Cardiovascular History: asymptomatic left cardiac stenosis, tachycardia Respiratory History: Reports: Sleep Apnea Gastrointestinal History: Reports: GERD Genitourinary History: Reports: None, UTI, Recurrent Other Genitourinary History: nocturia [employer]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: None, Musculoskeletal History: Reports: Arthritis, Back Pain, Chronic, Fracture, Osteoporosis, RA, Other (See Below) Other Musculoskeletal History: Muscle spasms, arthralgia Neurological History: Reports: Neuropathy, Diabetic, TIA, Other (See Below) Other Neuro History: daughter states pt has had a few ministrokes, on 01/03/18 states she has never had a mini stroke Psychiatric History: Reports: Anxiety, Other (See Below) Other Psychiatric History: Insomnia Endocrine/Metabolic History: Reports: Diabetes, Type II Hematologic History: Reports: None Immunologic History: Reports: None Oncologic (Cancer) History: Reports: Breast Dermatologic History: Reports: Other (See Below) Other Dermatologic History: Actinic keratosis - Past Surgical History HEENT Surgical History: Reports: Cataract Surgery GI Surgical History: Reports: Appendectomy, Cholecystectomy, Hernia, Inguinal Female Surgical History: Reports: Hysterectomy, Oophorectomy, Other (See Below) Neurological Surgical History: Reports: None Musculoskeletal Surgical History: Reports: Other (See Below) Social & Family History - Family History Family Medical History: Noncontributory - Tobacco Use Smoking Status *Q: Never Smoker Second Hand Smoke Exposure: No - Caffeine Use Caffeine Use: Reports: None - Recreational Drug Use Recreational Drug Use: No - Living Situation & Occupation Living situation: Reports: , Alone ED ROS GENERAL - Review of Systems Review Of Systems: See Below Constitutional: Reports: Weakness. Denies: Fever, Chills HEENT: Reports: No Symptoms Respiratory: Reports: No Symptoms. Denies: Shortness of Breath Cardiovascular: Reports: Lightheadedness, Syncope. Denies: Chest Pain, Dyspnea on Exertion, Palpitations Endocrine: Reports: No Symptoms GI/Abdominal: Reports: No Symptoms : Reports: No Symptoms Musculoskeletal: Reports: Neck Pain Skin: Reports: No Symptoms Neurological: Reports: No Symptoms Psychiatric: Reports: No Symptoms - Physical Exam Exam: See Below Exam Limited By: No Limitations General Appearance: Alert, WD/WN, No Apparent Distress Eye Exam: Bilateral Eye: EOMI, Normal Inspection, PERRL Ears: Normal External Exam, Normal Canal, Hearing Grossly Normal, Normal TMs Nose: Normal Inspection, Normal Mucosa, No Blood Throat/Mouth: Normal Inspection, Normal Lips, Normal Gums, Normal Oropharynx, Normal Voice, No Airway Compromise Head Exam: Atraumatic, Normocephalic. No: Scalp Tenderness, Facial Tenderness Neck: Normal Inspection, Supple. No: Limited Range of Motion, Tender Midline Respiratory/Chest: No Respiratory Distress, Lungs Clear, Normal Breath Sounds, No Accessory Muscle Use Cardiovascular: Regular Rate, Rhythm, No Edema, No Murmur Neuro Exam (Abbreviated): Alert, Oriented, CN II-XII Intact, Normal Cognition, No Motor/Sensory Deficits Extremities: Normal Inspection, Normal Range of Motion, Non-Tender, No Pedal Edema Psychiatric: Normal Affect, Normal Mood Skin Exam: Warm, Dry, Intact, Normal Color, No Rash EKG INTERPRETATION EKG Date: 07/05/20 Rhythm: NSR Course - Vital Signs Last Recorded V/S: Last Vital Signs Temp 97.2 F 07/05/20 12:32 Pulse 82 07/05/20 12:32 Resp 16 07/05/20 12:32 BP 141/77 H 07/05/20 12:32 Pulse Ox 97 07/05/20 12:32 - Orders/Labs/Meds Orders: Active Orders 24 hr Category Date Time Status Cervical Spine wo Cont [CT] Stat Exams 07/05/20 12:28 Taken Chest 2V [CR] Stat Exams 07/05/20 12:28 Taken Head wo Cont [CT] Stat Exams 07/05/20 12:28 Taken Labs: Laboratory Tests 07/05/20 07/05/20 07/05/20 Range/Units 12:28 12:28 12:28 WBC 10.6 H (5.0-10.0) 10^3/uL RBC 4.28 (4.00-5.50) 10^6/uL Hgb 12.4 (12.0-16.0) g/dL Hct 40.0 (37.0-47.0) % MCV 93.5 (82.0-94.0) fL MCH 29.0 (27.0-32.0) pg MCHC 31.0 L (33.0-38.0) g/dL RDW Coeff of Roxanna 13.0 (11.0-15.0) % Plt Count 342 (150-400) 10^3/uL Neut % (Auto) 79.8 (35-85) % Lymph % (Auto) 10.6 (10-55) % [place] % (Auto) 6.4 (0-16) % Eos % (Auto) 2.9 (0-5) % Baso % (Auto) 0.3 (0-3) % Neut # (Auto) 8.47 H (1.80-7.00) 10^3/uL Lymph # (Auto) 1.12 (1.00-4.80) 10^3/uL [place] # (Auto) 0.68 (0.00-0.80) 10^3/uL Eos # (Auto) 0.31 (0.00-0.45) 10^3/uL Baso # (Auto) 0.03 10^3/uL PT 9.5 L (9.7-12.3) SEC INR 0.94 (0.92-1.18) APTT 22.6 L (23.2-32.3) SEC Sodium 140 (136-145) mEq/L Potassium 3.8 (3.5-5.0) mEq/L Chloride 105 (98-106) mEq/L Carbon Dioxide 26 (21-32) mmol/L BUN 17 (7-18) mg/dL Creatinine 0.8 (0.6-1.0) mg/dL Est Cr Clr Drug Dosing TNP Estimated GFR (MDRD) > 60 (>=60) mL/min Glucose 153 H D (75-99) mg/dL Calcium 8.9 (8.4-10.1) mg/dL Total Bilirubin 0.3 (0.0-1.0) mg/dL AST 16 (15-37) U/L ALT 23 (12-78) U/L Alkaline Phosphatase 130 H (46-116) U/L Lactate Dehydrogenase 156 (100-190) U/L Creatine Kinase 31 (21-215) U/L Troponin I < 0.017 (0.00-0.06) ng/mL Total Protein 7.4 (6.4-8.2) g/dL Albumin 3.4 (3.4-5.0) g/dL Departure - Departure Time of Disposition: 15:27 Disposition: Home, Self-Care 01 Clinical Impression: Syncope Qualifiers: Syncope type: vasovagal syncope Qualified Code(s): R55 - Syncope and collapse - Discharge Information Instructions: Syncope, [id number] Referrals: Jeremy Linares MD [Primary Care Provider] - Additional Instructions: 1) CT of the head and cervical spine looked okay today 2) Watch for any return of symptoms, syncope, etc... if any symptoms arise, recommend reevaluation 3) Labs and EKG today looked okay as well 4) May call if any questions [phone] 5) Continue using walker when ambulating. 6) Follow up with primary provider next week for recheck. Sepsis Event Note (ED) - Evaluation Sepsis Screening Result: No Definite Risk - Focused Exam Vital Signs: Vital Signs Temp Pulse Resp BP Pulse Ox 07/05/20 12:32 97.2 F 82 16 141/77 H 97 - Problem List & Annotations (1) Syncope SNOMED Code(s): 286329360 Code(s): R55 - SYNCOPE AND COLLAPSE Status: Acute Current Visit: Yes Qualifiers: Syncope type: vasovagal syncope Qualified Code(s): R55 - Syncope and collapse - My Orders Last 24 Hours: My Active Orders 07/05/20 12:28 Cervical Spine wo Cont [CT] Stat Chest 2V [CR] Stat Head wo Cont [CT] Stat - Assessment/Plan Last 24 Hours: My Active Orders 07/05/20 12:28 Cervical Spine wo Cont [CT] Stat Chest 2V [CR] Stat Head wo Cont [CT] Stat Plan: No further episodes while in ED. Pt has remained asymptomatic and has been up ambulating. Will discharge home with negative CT of the head and neck for any acute changes. Pt in agreement.
== END 2020-07-05 15:35 | disposition home or self-care (01) ==
LOC: CC.ED 12:13
DX: R55 Syncope and collapse (principal); R42 Dizziness and giddiness; M54.2 Cervicalgia; I10 Essential (primary) hypertension; M06.9 Rheumatoid arthritis, unspecified; E11.40 Type 2 diabetes mellitus with diabetic neuropathy, unspecified; Z88.8 Allergy status to other drugs, medicaments and biological substances; Z88.5 Allergy status to narcotic agent; Z79.899 Other long term (current) drug therapy
CPT/HCPCS: 36415; 70450; 71046; 72125; 80053; 82550; 83615; 84484; 85025; 85610; 85730; 93005; 99284; 99284-25

== ENCOUNTER 2020-10-09 14:31 | Emergency (ER) | payer MEDICARE, BC ==
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
[2020-10-09] MEDS: fentaNYL 100 MCG/2 ML SDV IVPUSH PRN (15:46)
[2020-10-09 15:49] VITALS: BP 144/72; PULSE 70
[2020-10-09] MEDS: fentaNYL 100 MCG/2 ML SDV IVPUSH ONE (16:44)
== END 2020-10-09 17:08 ==
LOC: CC.ED 14:31
DX: S72.145A Nondisplaced intertrochanteric fracture of left femur, initial encounter for closed fracture (principal); I10 Essential (primary) hypertension; M06.9 Rheumatoid arthritis, unspecified; E11.40 Type 2 diabetes mellitus with diabetic neuropathy, unspecified; Z86.73 Personal history of transient ischemic attack (TIA), and cerebral infarction without residual deficits; F41.9 Anxiety disorder, unspecified; Z79.82 Long term (current) use of aspirin; Z79.899 Other long term (current) drug therapy; Z88.5 Allergy status to narcotic agent; Z79.4 Long term (current) use of insulin; Z20.828 Contact with and (suspected) exposure to other viral communicable diseases; W18.30XA Fall on same level, unspecified, initial encounter; Y93.G3 Activity, cooking and baking
CPT/HCPCS: 96374; 96376; 99284; 99284-25; J3010; U0002

== ENCOUNTER 2021-03-05 16:09 | Emergency (ER) | payer MEDICARE, BC ==
[2021-03-05 16:12] VITALS: BP 171/85; PULSE 97
--- NOTE | 2021-03-05 16:44 | EDM.PDOC ---
ED HPI GENERAL MEDICAL PROBLEM - General Chief Complaint: Cardiovascular Problem Stated Complaint: swollen legs Time Seen by Provider: 03/05/21 16:41 Source of Information: Reports: Patient History Limitations: Reports: No Limitations - History of Present Illness INITIAL COMMENTS - FREE TEXT/NARRATIVE: This patient is an 89 year old female that presents to the ER with daughter in the waiting room. The patient reports that her daughter made her come to the ER because the patient has been complaining for 1 week and daughter was afraid the patient would not be able to get an appointment with PCP in clinic tomorrow. The patient reports that she does not think she really needed to come to the ER on a Saturday evening when her complaint has been going on for the last 1 week. The patient reports for 1 week having swelling in bilateral legs. She reports that the pain in her bilateral legs has increased. She reports the pain may be from the swelling. She reports that the inner thighs of her legs are rubbing together. Patient reports that she does have a history of neuropathy, but also has history of swelling in her legs. Patient reports that she is currently taking medication for her edema in legs and for her neuropathy. The patient reports that she was in a long-term and doing well, but she wanted to be discharged from there and wanted to live at home as long as she is able. Patient reports that she has been generally weak. She reports she has a wheelchair at home she uses to get around. Patient reports that she has an aid that comes to the home to give her baths. Patient reports she lives alone at home, but is able to do her own meals and other ADLs the aid doesnt help with. Patient reports 1 week ago having "stomach flu", but feeling better the last week from that. She denies bone, dizziness, n, v, d, f, abd pain, chest pain, shortness of breath, difficulty breathing with laying flat. Patient reports her legs feel painful, swelling, numb sensation. Patient denies any recent falls, back pain/back injury. She denies any bowel incontinence. She reports her only urinary incontinence is after taking her water pill and having to urinate several times. Onset Date: 02/26/21 Duration: Week(s): (1), Getting Worse Location: Reports: Lower Extremity, Left (swelling), Lower Extremity, Right (swelling) Front/Back Body Image: 1 - old ecchymosis Severity: Mild Improves with: Reports: None Worsens with: Reports: None Associated Symptoms: Reports: Weakness (general). Denies: Confusion, Chest Pain, Cough, cough w sputum, Diaphoresis, Fever/Chills, Headaches, Loss of Appetite, Malaise, Nausea/Vomiting, Rash, Seizure, Shortness of Breath, Syncope Bilateral Lower Leg Pain Score (Numeric/FACES): 9 - Related Data Allergies Allergy/AdvReac Type Severity Reaction Status Date / Time meperidine [From Demerol] Allergy Cannot Verified 03/05/21 16:12 Remember nabumetone Allergy Cannot Verified 03/05/21 16:12 Remember oxycodone HCl [From Percocet] Allergy Hallucinati Verified 03/05/21 16:12 ons Home Meds: Home Meds Torsemide [Demadex] 20 mg PO DAILY 06/29/17 [History] Ferrous Sulfate 325 mg PO DAILY 01/03/18 [History] Insulin Glarg,Human.Rec.Analog [Lantus] 9 units SUBCUT BEDTIME 01/03/18 [History] Metoprolol Succinate [Toprol XL 100mg] 100 mg PO DAILY #30 tab.er 06/03/18 [Rx] Gabapentin [Neurontin] 300 mg PO TID 01/28/19 [History] predniSONE 5 mg PO DAILY 01/28/19 [History] Acetaminophen [Tylenol Extra Strength] 500 - 1,000 mg PO Q4H PRN 09/19/19 [History] Denosumab [Prolia] 60 mg SUBCUT Q180D 09/19/19 [History] Meloxicam 15 mg PO DAILY 09/19/19 [History] Zolpidem Tartrate [Ambien] 5 mg PO BEDTIME 09/19/19 [History] amLODIPine Besylate [Amlodipine Besylate] 5 mg PO DAILY 09/19/19 [History] Hydrocodone/Acetaminophen [Hydrocodone-Acetamin 5-325 mg] 1 - 2 tab PO Q4H 07/05/20 [History] Aspirin [Aspirin EC] 1 tab PO DAILY 10/09/20 [History] Cholecalciferol (Vitamin D3) [Vitamin D3] 1 tab PO DAILY 10/09/20 [History] Cyclobenzaprine [Flexeril] 10 mg PO TID PRN 10/09/20 [History] Docusate Sodium [Colace] 100 mg PO BID 10/09/20 [History] Folic Acid 1 mg PO DAILY 10/09/20 [History] Omeprazole 1 tab PO DAILY 10/09/20 [History] Potassium Chloride 30 meq PO BID 10/09/20 [History] lisinopriL [Zestril] 10 mg PO DAILY 10/09/20 [History] Past Medical History HEENT History: Reports: Hard of Hearing Cardiovascular History: Reports: High Cholesterol, Hypertension, Other (See Below) Other Cardiovascular History: asymptomatic left cardiac stenosis, tachycardia Respiratory History: Reports: Sleep Apnea Gastrointestinal History: Reports: GERD Genitourinary History: Reports: None, UTI, Recurrent Other Genitourinary History: nocturia [employer] History: Reports: None, Musculoskeletal History: Reports: Arthritis, Back Pain, Chronic, Fracture, Osteoporosis, RA, Other (See Below) Other Musculoskeletal History: Muscle spasms, arthralgia Neurological History: Reports: Neuropathy, Diabetic, TIA, Other (See Below) Other Neuro History: daughter states pt has had a few ministrokes, on 01/03/18 states she has never had a mini stroke Psychiatric History: Reports: Anxiety, Other (See Below) Other Psychiatric History: Insomnia Endocrine/Metabolic History: Reports: Diabetes, Type II Hematologic History: Reports: None Immunologic History: Reports: None Oncologic (Cancer) History: Reports: Breast Dermatologic History: Reports: Other (See Below) Other Dermatologic History: Actinic keratosis - Past Surgical History HEENT Surgical History: Reports: Cataract Surgery Respiratory Surgical History: Reports: None GI Surgical History: Reports: Appendectomy, Cholecystectomy, Hernia, Inguinal Female Surgical History: Reports: Hysterectomy, Oophorectomy, Other (See Below) Other Female Surgeries/Procedures: Breast Lumpectomy Neurological Surgical History: Reports: None Musculoskeletal Surgical History: Reports: Other (See Below) Other Musculoskeletal Surgeries/Procedures:: right elbow surgery Social & Family History - Family History Family Medical History: No Pertinent Family History - Tobacco Use Tobacco Use Status *Q: Never Tobacco User - Caffeine Use Caffeine Use: Reports: None - Recreational Drug Use Recreational Drug Use: No - Living Situation & Occupation Living situation: Reports: , Alone ED ROS GENERAL - Review of Systems Review Of Systems: See Below Constitutional: Reports: No Symptoms HEENT: Reports: No Symptoms Respiratory: Reports: No Symptoms Cardiovascular: Reports: Edema (BLE) Endocrine: Reports: No Symptoms GI/Abdominal: Reports: No Symptoms : Reports: No Symptoms Musculoskeletal: Reports: Leg Pain (BLE) Skin: Reports: Bruising (Right top of foot, old, healing. ). Denies: Cyanosis, Jaundice, Mottled, Pallor, Diaphoresis, Dryness, Rash, Erythema, Change in Color, Change in Hair/Nails, Lesions, Lumps, Urticaria Neurological: Reports: No Symptoms Psychiatric: Reports: No Symptoms Hematologic/Lymphatic: Reports: No Symptoms Immunologic: Reports: No Symptoms ED EXAM, GENERAL - Physical Exam Exam: See Below Exam Limited By: No Limitations General Appearance: Alert, WD/WN, No Apparent Distress Eye Exam: Bilateral Eye: Normal Inspection, PERRL Ears: Normal External Exam, Normal Canal, Hearing Grossly Normal, Normal TMs Ear Exam: Bilateral Ear: Auricle Normal, Canal Normal, TM normal Nose: Normal Inspection, Normal Mucosa, No Blood Throat/Mouth: Normal Inspection, Normal Lips, Normal Teeth, Normal Gums, Normal Oropharynx, Normal Voice, No Airway Compromise Head: Atraumatic, Normocephalic Neck: Normal Inspection, Supple, Non-Tender, Full Range of Motion Respiratory/Chest: No Respiratory Distress, Lungs Clear, Normal Breath Sounds, No Accessory Muscle Use, Chest Non-Tender Cardiovascular: Normal Peripheral Pulses, Regular Rate, Rhythm, No Gallop, No JVD, No Murmur, No Rub Peripheral Pulses: 2+: Radial (L), Radial (R), 3+: Posterior Tibial (L), Posterior Tibial (R), Dorsalis Pedis (L), Dorsalis Pedis (R) GI/Abdominal: Normal Bowel Sounds, Soft, Non-Tender, No Organomegaly, No Distention, No Abnormal Bruit, No Mass, Pelvis Stable, Hernia (large umbilical) (Female) Exam: Deferred Rectal (Female) Exam: Deferred Back Exam: Normal Inspection, Full Range of Motion. No: CVA Tenderness (L), CVA Tenderness (R), Decreased Range of Motion, Muscle Spasm, Paraspinal Tenderness, Vertebral Tenderness Extremities: Normal Inspection, Normal Range of Motion, Non-Tender, Normal Capillary Refill, Pedal Edema (Nonpitting feet. Pitting anterior shins +3 BLE. ) Neurological: Alert, Oriented, Normal Cognition, No Motor/Sensory Deficits Psychiatric: Normal Affect, Normal Mood Skin Exam: Warm, Dry, Intact, Normal Color, No Rash, Ecchymosis (right foot, healing, old. ) Lymphatic: No Adenopathy #1 Interpretation EKG Date: 03/05/21 Time: 16:38 Rhythm: NSR Rate (Beats/Min): 92 [place]: Normal P-Wave: Present QRS: Normal ST-T: Normal QT: Normal Comparison: No Change Course - Vital Signs Last Recorded V/S: Last Vital Signs Temp 97.8 F 03/05/21 16:09 Pulse 97 03/05/21 16:09 Resp 18 03/05/21 16:09 BP 171/85 H 03/05/21 16:09 Pulse Ox 97 03/05/21 16:09 - Orders/Labs/Meds Orders: Active Orders 24 hr Category Date Time Status EKG Documentation Completion [RC] STAT Care 03/05/21 16:36 Active Chest 1V Frontal [CR] Stat Exams 03/05/21 16:57 Taken Chest 2V [CR] Stat Exams 03/05/21 16:44 Stop Req Labs: Laboratory Tests 03/05/21 03/05/21 Range/Units 16:45 16:45 WBC 9.9 (5.0-10.0) 10^3/uL RBC 3.88 L (4.00-5.50) 10^6/uL Hgb 11.6 L (12.0-16.0) g/dL Hct 37.2 (37.0-47.0) % MCV 95.9 H (82.0-94.0) fL MCH 29.9 (27.0-32.0) pg MCHC 31.2 L (33.0-38.0) g/dL RDW Coeff of Roxanna 12.9 (11.0-15.0) % Plt Count 342 (150-400) 10^3/uL Neut % (Auto) 76.6 (35-85) % Lymph % (Auto) 12.8 (10-55) % [place] % (Auto) 9.1 (0-16) % Eos % (Auto) 1.2 (0-5) % Baso % (Auto) 0.3 (0-3) % Neut # (Auto) 7.56 H (1.80-7.00) 10^3/uL Lymph # (Auto) 1.26 (1.00-4.80) 10^3/uL [place] # (Auto) 0.90 H (0.00-0.80) 10^3/uL Eos # (Auto) 0.12 (0.00-0.45) 10^3/uL Baso # (Auto) 0.03 10^3/uL Sodium 144 (136-145) mEq/L Potassium 4.0 D (3.5-5.0) mEq/L Chloride 102 (98-106) mEq/L Carbon Dioxide 29 (21-32) mmol/L BUN 20 H (7-18) mg/dL Creatinine 1.1 H (0.6-1.0) mg/dL Est Cr Clr Drug Dosing 25.39 mL/min Estimated GFR (MDRD) 47 L (>=60) mL/min Glucose 89 (75-99) mg/dL Calcium 9.7 (8.4-10.1) mg/dL Lactate Dehydrogenase 162 (100-190) U/L Creatine Kinase 43 (21-215) U/L Troponin I < 0.017 (0.00-0.06) ng/mL NT-Pro-B Natriuret Pep 128 (0-1000) pg/mL - Radiology Interpretation Free Text/Narrative:: CXR: No acute findings: No vascular congestion. - Re-Assessments/Exams Free Text/Narrative Re-Assessment/Exam: 03/05/21 17:15 The patient is currently laughing and having pleasant conversation with the RN Liss telling stories. 03/05/21 17:46 I spoke with patient for about 25 minutes about her legs and all results. Liss RN at bedside. I asked the patient if she wanted me to call her daughter into the room to also discuss with her. The patient is of sound body and mind, fully alert and oriented. The patient states "do not let her in here, or tell her anything. She tried to keep me in the long-term and tell them I had dementia, when I didn't." After discussing with the patient her legs and all results, and discharge home. I answered all patient questions. We discussed her BNP normal value, her CXR no vascular congestion. All other labs unremarkable. Due to her swelling BLE legs, and a long conversation, the patient would like her water pill increased to see if it helps her edema. I will temporary increase her Torsemide for 2 days and have her f/u with her PCP this week for evaluation and med changes if needed. The patient pain complaint with numbness pain, sounds more lie her neuropathy. Pulses +3, cap refill < 2 sec, sensory/motor function intact. Neurovascular intact. We discussed there is not indication for admit, or further emergent workup. Patient voices understanding and agreement to f/u with PCP for further eval, tx, workup as needed. Departure - Departure Time of Disposition: 17:40 Disposition: Home, Self-Care 01 Condition: Fair Clinical Impression: Edema of both legs Diabetic neuropathy Qualifiers: Diabetes mellitus type: type 2 Diabetes mellitus complication detail: diabetic polyneuropathy Qualified Code(s): E11.42 - Type 2 diabetes mellitus with diabetic polyneuropathy Instructions: Diabetic Neuropathy, Edema, [id number] Referrals: Manuel Corona MD [Primary Care Provider] - Forms: ED Department Discharge Additional Instructions: Followup with your primary care provider early this week: Please call tomorrow at 7:30am for an appointment Return to the ER for worsening of condition or any emergent concerns such as redness of legs shortness of breath, rattling/wet in chest Torsemide 20mg take 2 pills instead of 1, for 2 days only Keep legs elevated Use Triston Hose or Thigh highs as discussed Sepsis Event Note (ED) - Evaluation Sepsis Screening Result: No Definite Risk - Focused Exam Vital Signs: Vital Signs Temp Pulse Resp BP Pulse Ox 03/05/21 16:09 97.8 F 97 18 171/85 H 97 - My Orders Last 24 Hours: My Active Orders 03/05/21 16:36 EKG Documentation Completion [RC] STAT 03/05/21 16:44 Chest 2V [CR] Stat 03/05/21 16:57 Chest 1V Frontal [CR] Stat - Assessment/Plan Last 24 Hours: My Active Orders 03/05/21 16:36 EKG Documentation Completion [RC] STAT 03/05/21 16:44 Chest 2V [CR] Stat 03/05/21 16:57 Chest 1V Frontal [CR] Stat Plan: PLEASE SEE RN NOTE FOR PFSH
[2021-03-05 17:10] LABS: CHLORIDE,CL 102 mEq/L (98-106); SODIUM,NA 144 mEq/L (136-145)
== END 2021-03-05 18:23 | disposition home or self-care (01) ==
LOC: CC.ED 16:09
DX: R60.0 Localized edema (principal); E11.42 Type 2 diabetes mellitus with diabetic polyneuropathy; E78.00 Pure hypercholesterolemia, unspecified; I10 Essential (primary) hypertension; K21.9 Gastro-esophageal reflux disease without esophagitis; Z79.82 Long term (current) use of aspirin; Z79.899 Other long term (current) drug therapy; Z88.5 Allergy status to narcotic agent; Z88.6 Allergy status to analgesic agent; Z88.8 Allergy status to other drugs, medicaments and biological substances
CPT/HCPCS: 36415; 71045; 80048; 82550; 83615; 83880; 84484; 85025; 93005; 99284; 99284-25

== ENCOUNTER 2022-02-24 12:52 | Observation (INO) | payer MEDICARE, BC ==
[2022-02-24] MEDS ORDERED: Sodium Chloride 0.9% 10 ML Syringe FLUSH PRN (13:55)
[2022-02-24] MEDS ORDERED: Potassium Chloride 10 MEQ Tab.ER PO ONE (14:34)
[2022-02-24] MEDS ORDERED: Melatonin 3 MG Tab PO PRN (16:18)
[2022-02-24] MEDS ORDERED: Acetaminophen 325 MG Tab PO PRN (18:44)
[2022-02-24] MEDS: Potassium Chloride 10 MEQ Tab.ER **OWN MED PO SCH (18:48)
[2022-02-24] MEDS: Gabapentin 300 MG Cap **OWN MED PO SCH (19:48)
[2022-02-24] MEDS: Acetaminophen/HYDROcodone 325-5 MG Tab **OWN MED PO PRN (23:22)
[2022-02-25] MEDS ORDERED: Acetaminophen/HYDROcodone 325-5 MG Tab PO ONE (04:17)
[2022-02-25] MEDS: Potassium Chloride 10 MEQ Tab.ER **OWN MED PO SCH (07:35)
[2022-02-25 07:37] VITALS: BP 159/77; PULSE 119
[2022-02-25] MEDS: Gabapentin 300 MG Cap **OWN MED PO SCH (07:37)
[2022-02-25] MEDS: Acetaminophen/HYDROcodone 325-5 MG Tab **OWN MED PO PRN (07:41)
[2022-02-25] MEDS ORDERED: AMLODIPINE BESYLATE 5 MG PO SCH (08:00)
[2022-02-25] MEDS ORDERED: Lisinopril 10 MG Tab **OWN MED PO SCH (08:00)
[2022-02-25] MEDS ORDERED: Torsemide 20 MG Tab **OWN MED PO SCH (08:00)
[2022-02-25] MEDS ORDERED: PREDNISONE 5 MG PO SCH (08:00)
[2022-02-25] MEDS ORDERED: METOPROLOL SUCCINATE 100 MG PO SCH (08:00)
[2022-02-25] MEDS ORDERED: FERROUS SULFATE 325 MG PO SCH (08:00)
[2022-02-25] MEDS ORDERED: Cholecalciferol (Vitamin D3) 25 MCG Tab PO SCH (08:00)
[2022-02-25] MEDS ORDERED: Aspirin 325 MG Tab.EC **OWN MED PO SCH (08:00)
[2022-02-25] MEDS ORDERED: Folic Acid 1 MG Tab **OWN MED PO SCH (08:00)
[2022-02-25] MEDS ORDERED: Enoxaparin 30 MG/0.3 ML Syringe SUBCUT SCH (12:00)
== END 2022-02-25 12:31 | disposition home or self-care (01) ==
LOC: CC.ED 12:52 → CC.MS 15:14 → UNDOADMOB 15:14 → CC.MS 16:04 → UNDODISOB 02-25 12:31
PROVIDERS: ADMIT Nurse Practitioner Family; ATTEND Nurse Practitioner Family
DX: M25.551 Pain in right hip (principal); E78.00 Pure hypercholesterolemia, unspecified; I10 Essential (primary) hypertension; G47.30 Sleep apnea, unspecified; E11.40 Type 2 diabetes mellitus with diabetic neuropathy, unspecified; Z86.73 Personal history of transient ischemic attack (TIA), and cerebral infarction without residual deficits; M81.0 Age-related osteoporosis without current pathological fracture; Z90.49 Acquired absence of other specified parts of digestive tract; E87.6 Hypokalemia; Z88.5 Allergy status to narcotic agent; Z88.8 Allergy status to other drugs, medicaments and biological substances; W19.XXXA Unspecified fall, initial encounter
CPT/HCPCS: 36415; 80053; 81001; 82947; 83735; 85025; 99217; 99220; 99284; A9270-GY; G0378; J7512

== ENCOUNTER 2022-06-27 20:45 | Emergency (ER) | payer MEDICARE, BC ==
[2022-06-27 21:35] LABS: CHLORIDE,CL 106 mEq/L (98-106); ESTIMATED GFR 33 mL/min (>=60); SODIUM,NA 144 mEq/L (136-145)
[2022-06-27 21:38] LABS: PTT,PARTIAL THROMBOPLSTIN TIME 23.1 SEC (23.2-32.3)
[2022-06-28 03:27] VITALS: BP 151/75; PULSE 67
== END 2022-06-27 22:24 | disposition home or self-care (01) ==
LOC: CC.ED 20:45
DX: H53.411 Scotoma involving central area, right eye (principal); R51.9 Headache, unspecified; E78.00 Pure hypercholesterolemia, unspecified; I10 Essential (primary) hypertension; K21.9 Gastro-esophageal reflux disease without esophagitis; E11.40 Type 2 diabetes mellitus with diabetic neuropathy, unspecified; Z86.73 Personal history of transient ischemic attack (TIA), and cerebral infarction without residual deficits; Z88.5 Allergy status to narcotic agent; Z79.82 Long term (current) use of aspirin; Z79.899 Other long term (current) drug therapy
CPT/HCPCS: 36415; 70450; 80053; 82947; 85025; 85610; 85651; 85730; 86140; 93005; 99284